=== PATIENT | female | born 1950 | race Caucasian/White ===

== ENCOUNTER 2019-05-26 10:30 | Day surgery (SDC) | payer MEDICARE ==
[~2019-05-26 10:30] MED LIST: FENTANYL CITRATE INJ/PF 100 MCG/2 ML AMPUL ONE; KETOROLAC TROMETHAMINE 0.45% 4 DROP/0.4 ML DROPERETTE OS PRN; MIDAZOLAM 2 MG/2 ML INJ ONE
[2019-05-26] MEDS: TROPICAMIDE 1% OPH SOLN 3 ML OS PRN ×3 (11:33→11:56)
[2019-05-26] MEDS: TETRACAINE HCL 0.5% OPH SOLN 4 ML OS PRN ×4 (11:33→12:06)
[2019-05-26] MEDS: CYCLOPENTOLATE 0.2%/PHENYLEPHRINE 1% OPH SOLN 2 ML OS PRN ×3 (11:33→11:56)
[2019-05-26] MEDS: BESIFLOXACIN HCL 0.6% OPH SUSP 5 ML BOTTLE OS PRN ×4 (11:33→12:32)
[2019-05-26] MEDS: LIDOCAINE 1%/PHENYLEPHRINE 1.5% 1 ML VIAL ONE ×2 (12:21)
[2019-05-26] MEDS: CHONDR SU A NA/HYALUR INTRAOC KIT (SURGICARE) ONE ×2 (12:21)
[2019-05-26] MEDS: EPINEPHRINE INJ/PF 1 MG/1 ML AMPULE ONE ×2 (12:21)
[2019-05-26] MEDS: DORZOLAMIDE HCL 2%/TIMOLOL MALEAT 0.5% OPH SOLN 10 ML OS PRN ×2 (12:32)
--- NOTE | 2019-05-26 13:37 | Operative Report ---
Operative Report-[facility] Operative Report: DATE OF SURGERY: 05/26/2019 PREOPERATIVE DIAGNOSIS: Cataracts, left eye POSTOPERATIVE DIAGNOSIS: Cataract, left eye OPERATION: Cataract extraction with insertion of an toric IOL of the left eye. Intraocular Lens Model: [23.0 sn6at8 at 13 degrees] SURGEON: Luis Antonio Monteiro MD ANESTHESIA: Topical PROCEDURE: After obtaining appropriate consent, the patient's left eye was prepped and draped in a sterile fashion as well as the surgeon in the sterile manner and cataract surgery was started. First a paracentesis blade was used to make a side-port incision. Viscoelastic was used to inflate the anterior chamber. Next a 2.4 mm incision was made with a 2.4 mm blade, clear corneal temporarily. A continuous capsulorrhexis was made using a cystotome and Utrata forceps. Following this hydrodissection was carried out to make commands fully loose and mobile and it was rotated 90 degrees. Following this, a divide and conquer technique was used to phacoemulsify the lens. The remaining cortex was removed with an irrigation/aspiration. Provisc was instilled into the capsular bag to inflate the bag.The intracular lens was placed. The remaining viscoelastic material was removed with irrigation/aspiration. Following this, the incision was found to be watertight. Besivance and Cosopt was instilled into the eye and a protective shield was placed over the eye. The patient was turned to the postoperative recovery in a stable condition.
--- NOTE | 2019-05-26 13:38 | PDOC DISCHARGE SUMMARY ---
Discharge Summary-[facility] Discharge Summary: DATE OF SURGERY: 05/26/2019 PREOPERATIVE DIAGNOSIS: Cataract, left eye POSTOPERATIVE DIAGNOSIS: Cataract, left eye OPERATION: Cataract extraction with insertion of an toric IOL of the left eye. SURGEON: Luis Antonio Monteiro MD ANESTHESIA: Topical The patient underwent surgery because they are having [trouble seeing words on the tv]. They're to be on a regular diet, no bending at their waist, and no heavy lifting. They should use the prescribed antibiotic, NSAID, and steroid at 3 PM and 8 PM. They should sleep with a rigid shield and I will see them for 1 day postoperative tomorrow.
== END 2019-05-26 13:16 | disposition home or self-care (01) ==
LOC: SC 10:30
PROVIDERS: ATTEND Internal Medicine
DX: H25.12 Age-related nuclear cataract, left eye (principal); Z96.1 Presence of intraocular lens; H17.89 Other corneal scars and opacities; I10 Essential (primary) hypertension; E66.9 Obesity, unspecified; E07.9 Disorder of thyroid, unspecified; Z79.899 Other long term (current) drug therapy
CPT/HCPCS: 66984; J2250; J3490 ×2; A9270; J0171; J3010; J2370; 142; V2787

== ENCOUNTER 2020-07-12 10:18 | Day surgery (SDC) | payer MEDICARE ==
[~2020-07-12 10:18] MED LIST changes: +CEFAZOLIN 2 GM/D5W RTU 2 GM/50 ML RTUPB IV PRN; -FENTANYL CITRATE INJ/PF 100 MCG/2 ML AMPUL ONE; -KETOROLAC TROMETHAMINE 0.45% 4 DROP/0.4 ML DROPERETTE OS PRN; +LACTATED RINGERS 1000 ML IV PRN; +METRONIDAZOLE 500 MG/NS RTU 500 MG/100 ML RTUPB IV PRN; -MIDAZOLAM 2 MG/2 ML INJ ONE
[2020-07-12] MEDS ORDERED: FENTANYL CITRATE INJ/PF 100 MCG/2 ML AMPUL ONE (10:59)
[2020-07-12] MEDS ORDERED: MIDAZOLAM 2 MG/2 ML INJ ONE (10:59)
[2020-07-12] MEDS ORDERED: PROPOFOL INJ 200 MG/20 ML VIAL IV ONE (10:59)
[2020-07-12] MEDS ORDERED: BUPIVACAINE INJ/PF LIPOSOME/PF 266 MG/20 ML SDV ONE (11:08)
[2020-07-12] MEDS ORDERED: METRONIDAZOLE 500 MG/NS RTU 500 MG/100 ML RTUPB IV ONE (11:14)
[2020-07-12] MEDS ORDERED: CEFAZOLIN 2 GM/D5W RTU 2 GM/50 ML RTUPB IV ONE (11:14)
[2020-07-12] MEDS ORDERED: FENTANYL CITRATE INJ/PF 100 MCG/2 ML AMPUL IV PRN ×3 (11:52)
[2020-07-12] MEDS ORDERED: DIPHENHYDRAMINE HCL 50 MG/ML VIAL IV PRN (11:52)
[2020-07-12] MEDS ORDERED: MEPERIDINE HCL/PF INJ 25 MG/1 ML DISP.SYRIN IV PRN (11:52)
[2020-07-12] MEDS ORDERED: PROMETHAZINE HCL INJ 25 MG/1 ML VIAL IV PRN ×2 (11:52)
[2020-07-12] MEDS ORDERED: MORPHINE SULFATE 10 MG/ML INJ IV PRN (11:52)
[2020-07-12] MEDS ORDERED: HYDROMORPHONE HCL INJ/PF 2 MG/ML AMPULE ONE (12:40)
[2020-07-12] MEDS: HYDROMORPHONE HCL INJ/PF 2 MG/ML AMPULE IV PRN ×3 (12:42→13:15)
--- NOTE | 2020-07-12 13:02 | Operative Report ---
Nonrecallable Operative Report DATE OF SURGERY: 07/12/20 PREOPERATIVE DIAGNOSIS: symptomatic cholelilthiasis POSTOPERATIVE DIAGNOSIS: symptomatic choleliltlhliasis OPERATION: laparoscpoic cholecystectomy SURGEON: CAROLYN CH 1ST [employer] SAL[employer] EXECUTIVE: JANETH PARMAR ANESTHESIA: GA TISSUE REMOVED OR ALTERED: gallbladder COMPLICATIONS: none ESTIMATED BLOOD LOSS: 10cc INTRAOPERATIVE FINDINGS: see note PROCEDURE: After obtaining informed consent, the patient was taken to the operating room. General Anesthesia was induced; the arms were extended, and the abdomen was exposed, and prepped and draped in a sterile fashion. Instrumentation was set up for laparoscopic cholecystectomy. Surgical plan and surgical timeout were conducted. A vertical incision was made above the umbilicus, and a verres needle was inserted uneventfully into the peritoneal cavity. Pneumoperitoneum was established. The verres needle was removed and a 10 mm trocar was inserted and a 10 mm laparoscope was inserted. Visualization of the peritoneal cavity confirmed safe uneventful entry. Under direct visualization 3 additional 5 mm ports were established, one in the subxiphoid position and second in the subcostal position. Visualization of the hepatobiliary anatomy revealed no anatomic variations. A grasper was placed on the fundus of the gallbladder and the gallbladder is elevated over the right surface of the liver; a second grasper was used to grasp the infundibulum of the gallbladder. The neck of the gallbladder and junction with the cystic duct was dissected out. The Cystic artery was in its usual location medial and cephalad to the cystic duct. The cystic artery was surrounded with a right angle clamp, clipped twice proximally and divided with laparoscopic scissors. We now opened the triangle of Calot by dividing the peritoneal reflection on both the medial and lateral sides of the cystic duct infundibular junction. The critical view was obtained. We now milked the cystic duct of any possible stones, clipped the cystic duct approximately 2 times once distally and divided with scissors. The gallbladder was now removed from the undersurface of the liver using hook cautery dissection. Graspers were repositioned and the gallbladder was removed uneventfully from the abdominal cavity through the super umbilical port site incision. The specimen was examined, then passed off to pathology for permanent analysis. We returned to the peritoneal cavity check for bleeding, and evidence of bile leak, and there was none. We Confirmed satisfactory placement of clips on cystic duct and cystic artery were secured . At this point we felt the operation was complete. The subcutaneous tissue was then anesthetized with quarter percent Marcaine Sponge and needle counts are correct. All ports removed under direct visualization pneumoperitoneum evacuated, and 5 mm port wounds closed with 3-0 Vicryl suture, benzoin and Steri-Strips. The patient was extubated, and taken to the recovery room in stable condition. Janeth Smith was present for the entire procedure for help with wound retraction dissection wound closure
--- NOTE | 2020-07-12 13:06 | Discharge Summary ---
Discharge Summary (SDC) - Discharge Final Diagnosis: Symptomatic cholelithiasis Date of Surgery: 07/12/20 Discharge Date: 07/12/20 Condition: Good Prescriptions: Oxycodone HCl/Acetaminophen [Percocet 7.5-325 mg Tablet] 1 each PO Q6HP PRN #15 tablet PRN Reason: Referrals: GERBER KEEN MD [Primary Care Provider] - Respiratory Treatments at Home: Deep Breathing/Coughing Discharge Activity: Activity As Tolerated, No Lifting Over 10 Pounds Report the Following to Your Physician Immediately: Shortness of Breath, Yellow Skin, Fever over 101 Degrees, Unusual Bleeding - f/u with me in 7-10 days
[2020-07-12] MEDS ORDERED: OXYCODONE-ACETAMINOPHEN 5-325 MG TABLET PO PRN (13:07)
[2020-07-12] MEDS ORDERED: OXYCODONE-ACETAMINOPHEN 5-325 MG TABLET ONE (14:05)
[2020-07-12] MEDS ORDERED: NEOSTIGMINE METHYLSULFATE 10 MG/10 ML VIAL ONE (14:37)
[2020-07-12] MEDS ORDERED: SUCCINYLCHOLINE CHLORIDE INJ 200 MG/10 ML VIAL ONE (14:37)
[2020-07-12] MEDS ORDERED: ROCURONIUM BROMIDE INJ 50 MG/5 ML VIAL IV ONE (14:37)
[2020-07-12] MEDS ORDERED: DEXAMETHASONE SOD PHOSPHATE INJ 4 MG/1 ML VIAL ONE (14:37)
[2020-07-12] MEDS ORDERED: ONDANSETRON HCL INJ/PF 4 MG/2 ML SDV ONE (14:37)
[2020-07-12] MEDS ORDERED: GLYCOPYRROLATE 1 MG/5 ML VIAL ONE (14:37)
[2020-07-12 17:26] VITALS: BP 138/78
--- NOTE | 2020-07-12 19:29 | EKG REPORT ---
SEVERITY:- ABNORMAL ECG - SINUS RHYTHM VENTRICULAR TRIGEMINY : Confirmed by: Sheri Guidry MD 12-Jul-2020 19:28:54
== END 2020-07-12 15:40 | disposition home or self-care (01) ==
LOC: OROUT 10:18
PROVIDERS: ATTEND Surgery
DX: K80.10 Calculus of gallbladder with chronic cholecystitis without obstruction (principal); E07.9 Disorder of thyroid, unspecified; I10 Essential (primary) hypertension; E66.9 Obesity, unspecified; Z79.899 Other long term (current) drug therapy; Z03.818 Encounter for observation for suspected exposure to other biological agents ruled out
CPT/HCPCS: 88304 ×2; 93005; 93010; 00790; 47562; U0003; J2250; J3490 ×3; J1100; J3010; J2710; A9270; J1170; J0330; J2405; J2704; J0690; C9290; C9803; 790; 87635

== ENCOUNTER 2020-08-31 12:07 | Inpatient (IN) | payer MEDICARE ==
--- NOTE | 2020-08-31 12:30 | ER Document Report ---
ED Respiratory Problem - General Stated Complaint: WEAKNESS Time Seen by Provider: 08/31/20 12:13 TRAVEL OUTSIDE OF THE [place] IN LAST 30 DAYS: No - HPI Notes: She is a 70-year-old female who presents with shortness of breath. Patient was diagnosed with Covid as an outpatient on Thursday. She states she has had worsening shortness of breath. She states she did have a fever but that has resolved. No diarrhea or vomiting. Patient is a non-smoker. Patient called EMS today. They gave her breathing treatments, 125 mg Solu-Medrol, 500ml LR. - Related Data Allergies/Adverse Reactions: No Known Allergies Allergy (Verified 08/31/20 13:12) Past Medical History - General Information source: Patient, Emergency Med Personnel - Social History Smoking Status: Never Smoker Family History: Reviewed & Not Pertinent - Past Medical History Cardiac Medical History: Reports: Hx Hypertension Denies: Hx Heart Attack Pulmonary Medical History: Denies: Hx Asthma, Hx Bronchitis, Hx COPD, Hx Pneumonia Neurological Medical History: Denies: Hx Cerebrovascular Accident, Hx Seizures GI Medical History: Denies: Hx Hepatitis, Hx Hiatal Hernia, Hx Ulcer Musculoskeletal Medical History: Reports Hx Arthritis Infectious Medical History: Denies: Hx Hepatitis Past Surgical History: Denies: Hx Mastectomy, Hx Open Heart Surgery, Hx Pacemaker - Immunizations Hx Diphtheria, Pertussis, Tetanus Vaccination: Yes Review of Systems - Review of Systems Notes: CONSTITUTIONAL: No fatigue or weight loss. Positive for fever. SKIN: No rash. CARDIOVASCULAR: No chest pain or edema. RESPIRATORY: Positive for cough and shortness of breath. GASTROINTESTINAL: No abdominal pain, nausea, vomiting, bloody stools or diarrhea. MUSCULOSKELETAL: No joint pain or swelling. NEUROLOGIC: No seizures. No headache, focal weakness or sensory changes. HEMATOLOGIC: No unusual bruising or bleeding. PSYCHIATRIC: No depression or anxiety. Physical Exam - Vital signs Vitals: Resp Pulse Ox 31 H 71 L 08/31/20 12:09 08/31/20 12:09 - General In distress: Mild Notes: VITAL SIGNS: On CPAP. Mild tachycardia. GENERAL: Distress due to respiratory. HEAD: Normal with no signs of head trauma. EYES: EOMI, conjunctiva normal, no discharge. EARS: Hearing grossly intact. NOSE: Normal. NECK: Normal range of motion, no tenderness CHEST: Tachypneic with increased work of breathing. CARDIAC: Regular rate and rhythm. VASCULAR: No Edema. ABDOMEN: Normal and soft with no tenderness, no masses or pulsatile masses. GENITOURINARY: Normal, No tenderness MUSCULOSKELETAL: Good range of motion of all major joints. Extremities without clubbing, cyanosis or edema. NEUROLOGICAL: Alert and oriented x 3. No focal sensory or strength deficits. Speech normal. Follows commands appropriately. PSYCHIATRIC: Normal Affect, judgement and mood. SKIN: Normal appearance with no rashes or lesions. Course - Re-evaluation Re-evalutation: 08/31/20 13:45 Patient's x-ray is consistent with Covid. She is on CPAP. Patient was given steroids by EMS. She will need to be admitted to the hospital. ABG is pending. Patient's ABG is adequate on 100% FiO2. I called respiratory to have them turn it down. She is not acidotic. I discussed with the hospitalist for admission to the IMCU. Patient has already gotten steroids by EMS. 08/31/20 15:21 - Vital Signs Vital signs: Temp Pulse Resp BP Pulse Ox 98.1 F 24 H 156/67 H 94 08/31/20 14:01 08/31/20 17:02 08/31/20 17:02 08/31/20 17:02 - Laboratory Result Diagrams: 08/31/20 12:15 08/31/20 12:15 Laboratory results interpreted by me: 08/31/20 08/31/20 08/31/20 12:15 14:25 15:01 ABG pO2 137.4 H ABG O2 Saturation 98.8 H AST 144 H ALT 129 H Urine Protein 30 H Urine Urobilinogen 2.0 H Ur Leukocyte Esterase TRACE H - EKG Interpretation by Me Rate: Tachycardia Rhythm: A.Fib When compared to previous EKG there are: Previous EKG unavailable Additional EKG results interpreted by me: 08/31/20 12:32 Atrial fibrillation at a rate of 109. No acute ST changes. Artifact present. No EKG immediately available for comparison. Critical Care Note - Critical Care Note Total time excluding time spent on procedures (mins): 45 Comments: Upon my evaluation, this patient had a high probability of imminent or life- threatening deterioration due to acute respiratory failure due to Covid, which required my direct attention, intervention, and personal management. I have personally provided 45 minutes of critical care time exclusive of time spent on separately billable procedures. Time includes review of laboratory data, radiology results, discussion with consultants, and monitoring for potential decompensation. Interventions were performed as above. Discharge - Discharge Clinical Impression: Acute respiratory failure due to COVID-19 Condition: Serious Disposition: ADMITTED INPATIENT Admitting Provider: Bharti (Hospitalist) Unit Admitted: [facility]
[2020-08-31 12:44] LABS: ABSOLUTE LYMPHOCYTES (AUTO) 1.1 10^3/uL (0.5-4.7); ABSOLUTE MONOCYTES (AUTO) 0.3 10^3/uL (0.1-1.4); ABSOLUTE NEUT (AUTO) 3.3 10^3/uL (1.7-8.2); BASOPHILS % (AUTO) 0.5 % (0-2); EOSINOPHILS % (AUTO) 0.1 % (0-6); HEMATOCRIT 42.4 % (36.0-47.0); HEMOGLOBIN 14.5 g/dL (12.0-15.5); LYMPHOCYTES % (AUTO) 23.6 % (13-45); MEAN CORPUSCULAR HEMOGLOBIN 30.9 pg (27.0-33.4); MEAN CORPUSCULAR HGB CONC 34.1 g/dL (32.0-36.0); MEAN CORPUSCULAR VOLUME 91 fl (80-97); MONOCYTES % (AUTO) 5.3 % (3-13); PLATELET COUNT 290 10^3/uL (150-450); RED BLOOD COUNT 4.68 10^6/uL (3.72-5.28); RED CELL DISTRIBUTION WIDTH 13.7 % (11.5-14.0); SEGMENTED NEUTROPHILS % (AUTO) 70.5 % (42-78); TOTAL CELLS COUNTED % (AUTO) 100 %; WHITE BLOOD COUNT 4.7 10^3/uL (4.0-10.5)
[2020-08-31 12:48] LABS: ALBUMIN 3.8 g/dL (3.5-5.0); ALKALINE PHOSPHATASE 59 U/L (38-126); ANION GAP 8 (5-19); ASPARTATE AMINO TRANSFERASE 144 U/L (14-36); BILIRUBIN,DIRECT 0.3 mg/dL (0.0-0.4); BILIRUBIN,TOTAL 0.8 mg/dL (0.2-1.3); BLOOD UREA NITROGEN 19 mg/dL (7-20); CALCIUM 8.6 mg/dL (8.4-10.2); CARBON DIOXIDE 27 mmol/L (22-30); CHLORIDE 102 mmol/L (98-107); GLUCOSE 103 mg/dL (75-110); POTASSIUM 3.9 mmol/L (3.6-5.0); TOTAL PROTEIN 6.9 g/dL (6.3-8.2)
--- NOTE | 2020-08-31 12:59 | RADIOLOGY REPORT (SQ) ---
EXAM DESCRIPTION: CHEST SINGLE VIEW IMAGES COMPLETED DATE/TIME: 08/31/2020 12:43 pm REASON FOR STUDY: resp distress, covid COMPARISON: None. EXAM PARAMETERS: NUMBER OF VIEWS: One view. TECHNIQUE: Single frontal radiographic view of the chest acquired. RADIATION DOSE: NA LIMITATIONS: None. FINDINGS: LUNGS AND PLEURA: Diffuse bilateral alveolar and interstitial infiltrates worrisome for vi ral pneumonia No pleural effusion. No pneumothorax. MEDIASTINUM AND HILAR STRUCTURES: No masses. Contour normal. HEART AND VASCULAR STRUCTURES: Mild cardiomegaly BONES: No acute findings. HARDWARE: None in the chest. OTHER: No other significant finding. IMPRESSION: Diffuse bilateral alveolar and interstitial infiltrates TECHNICAL DOCUMENTATION: JOB ID: [id number] 2010 [employer]- All Rights Reserved Reading location - IP/workstation name: [email or web address]
[2020-08-31 15:00] LABS: ARTERIAL BLOOD BASE EXCESS -2.1 mmol/L; ARTERIAL BLOOD FIO2 100%; ARTERIAL BLOOD HCO3 22.1 mmol/L (20-24); ARTERIAL BLOOD O2 SATURATION 98.8 % (94-98); ARTERIAL BLOOD PCO2 36.5 mmHg (35-45); ARTERIAL BLOOD PO2 137.4 mmHg (80-100); ARTERIAL BLOOD TOTAL CO2 23.2 mmol/L (21-25)
[2020-08-31] MEDS ORDERED: PROMETHAZINE HCL INJ 25 MG/1 ML VIAL IV PRN (15:37)
[2020-08-31] MEDS ORDERED: OXYCODONE-ACETAMINOPHEN 5-325 MG TABLET PO PRN (15:37)
[2020-08-31] MEDS ORDERED: ACETAMINOPHEN 325 MG TABLET PO PRN (15:37)
[2020-08-31] MEDS ORDERED: MAG HYDROX/AL HYDROX/SIMETH SUSP 30 ML UDCUP PO PRN (15:37)
[2020-08-31] MEDS ORDERED: MAGNESIUM HYDROXIDE SUSP 30 ML UDCUP PO PRN (15:37)
[2020-08-31] MEDS ORDERED: ONDANSETRON HCL INJ/PF 4 MG/2 ML SDV IV PRN (15:37)
[2020-08-31] MEDS ORDERED: IPRATROPIUM/ALBUTEROL 0.5-2.5 MG/3 ML AMPUL NEB PRN (15:37)
[2020-08-31] MEDS ORDERED: TEMAZEPAM 7.5 MG CAPSULE PO PRN (15:37)
[2020-08-31] MEDS ORDERED: AZITHROMYCIN 250 MG TABLET PO ONE (15:37)
[2020-08-31 15:38] LABS: APPEARANCE,URINE CLOUDY; BILIRUBIN,URINE NEGATIVE (NEGATIVE); GLUCOSE, URINE NEGATIVE (NEGATIVE); KETONES,URINE NEGATIVE (NEGATIVE); LEUKOCYTE ESTERASE,URINE TRACE (NEGATIVE); NITRITE,URINE NEGATIVE (NEGATIVE); PROTEIN,URINE 30 mg/dL (NEGATIVE); URINE SPECIFIC GRAVITY 1.024
[2020-08-31 15:43] LABS: COLOR,URINE DARK YELLOW
[2020-08-31] MEDS ORDERED: LABETALOL HCL INJ 20 MG/4 ML DISP.SYRIN IV PRN (15:43)
[2020-08-31] MEDS ORDERED: DEXAMETHASONE SOD PHOS INJ 10 MG/1 ML VIAL IV SCH (15:45)
[2020-08-31] MEDS: ASPIRIN 81 MG TABLET, ENT COATED PO SCH (17:09)
[2020-08-31] MEDS: CHOLECALCIFEROL (D3) 1,000 UNIT (25 MCG) TABLET PO SCH (17:10)
[2020-08-31] MEDS: ZINC SULFATE 220 MG CAPSULE PO SCH (17:10)
[2020-08-31] MEDS: DEXAMETHASONE SOD PHOSPHATE INJ 4 MG/1 ML VIAL IV SCH (17:10)
[2020-08-31] MEDS: LOSARTAN POTASSIUM 25 MG TABLET PO SCH (17:13)
[2020-08-31] MEDS: ASCORBIC ACID 500 MG TABLET PO SCH (17:14)
[2020-08-31 17:58] LABS: FIBRINOGEN 740 mg/dL (209-497); INTERNATIONAL RATION (INR) 1.01; PROTHROMBIN TIME 13.5 SEC (11.4-15.4)
[2020-08-31 18:01] LABS: D-DIMER 1.38 ug/mL (0.00-0.50)
[2020-08-31 18:09] LABS: C-REACTIVE PROTEIN 74.1 mg/L (<10.0)
[2020-08-31 18:58] LABS: A TYPE INFLUENZA AG NEGATIVE (NEGATIVE); B INFLUENZA AG NEGATIVE (NEGATIVE)
--- NOTE | 2020-08-31 19:10 | EKG REPORT ---
SEVERITY:- ABNORMAL ECG - WANDERING PACEMAKER SUPRAVENTRICULAR BIGEMINY DIFFUSE NONSPECIFIC ST-T CHANGES : Confirmed by: Dick Newsome MD 31-Aug-2020 19:08:53
[2020-08-31] MEDS: IPRATROPIUM/ALBUTEROL 0.5-2.5 MG/3 ML AMPUL NEB SCH (20:03)
[2020-08-31] MEDS: ENOXAPARIN SODIUM INJ 120 MG/0.8 ML DISP.SYRIN SUBCUT SCH (21:32)
[2020-08-31] MEDS: FAMOTIDINE 20 MG TABLET PO SCH (21:33)
[2020-09-01] MEDS: LEVOTHYROXINE SODIUM 0.088 MG TABLET PO SCH (05:25)
[2020-09-01] MEDS ORDERED: LEVOTHYROXINE SODIUM 0.075 MG TABLET PO SCH (06:00)
[2020-09-01 06:43] LABS: ABSOLUTE LYMPHOCYTES (AUTO) 0.5 10^3/uL (0.5-4.7); ABSOLUTE MONOCYTES (AUTO) 0.3 10^3/uL (0.1-1.4); ABSOLUTE NEUT (AUTO) 2.5 10^3/uL (1.7-8.2); BASOPHILS % (AUTO) 0.2 % (0-2); HEMATOCRIT 38.6 % (36.0-47.0); HEMOGLOBIN 13.5 g/dL (12.0-15.5); LYMPHOCYTES % (AUTO) 13.9 % (13-45); MEAN CORPUSCULAR HEMOGLOBIN 31.2 pg (27.0-33.4); MEAN CORPUSCULAR HGB CONC 34.9 g/dL (32.0-36.0); MEAN CORPUSCULAR VOLUME 89 fl (80-97); MONOCYTES % (AUTO) 8.9 % (3-13); PLATELET COUNT 245 10^3/uL (150-450); RED BLOOD COUNT 4.33 10^6/uL (3.72-5.28); RED CELL DISTRIBUTION WIDTH 13.5 % (11.5-14.0); TOTAL CELLS COUNTED % (AUTO) 100 %; WHITE BLOOD COUNT 3.3 10^3/uL (4.0-10.5)
[2020-09-01 06:58] LABS: ALBUMIN 3.5 g/dL (3.5-5.0); ALKALINE PHOSPHATASE 59 U/L (38-126); ANION GAP 10 (5-19); ASPARTATE AMINO TRANSFERASE 101 U/L (14-36); BILIRUBIN,DIRECT 0.2 mg/dL (0.0-0.4); BILIRUBIN,TOTAL 0.6 mg/dL (0.2-1.3); BLOOD UREA NITROGEN 28 mg/dL (7-20); C-REACTIVE PROTEIN 66.1 mg/L (<10.0); CARBON DIOXIDE 23 mmol/L (22-30); CHLORIDE 105 mmol/L (98-107); GLUCOSE 145 mg/dL (75-110); POTASSIUM 3.8 mmol/L (3.6-5.0); TOTAL PROTEIN 6.6 g/dL (6.3-8.2)
[2020-09-01] MEDS: IPRATROPIUM/ALBUTEROL 0.5-2.5 MG/3 ML AMPUL NEB SCH ×3 (08:20→20:34)
[2020-09-01] MEDS: LOSARTAN POTASSIUM 25 MG TABLET PO SCH (09:18)
[2020-09-01] MEDS: FAMOTIDINE 20 MG TABLET PO SCH ×2 (09:18→21:18)
[2020-09-01] MEDS: CHOLECALCIFEROL (D3) 1,000 UNIT (25 MCG) TABLET PO SCH (09:18)
[2020-09-01] MEDS: DOCUSATE SODIUM 100 MG CAPSULE PO SCH (09:18)
[2020-09-01] MEDS: AZITHROMYCIN 250 MG TABLET PO SCH (09:18)
[2020-09-01] MEDS: ASCORBIC ACID 500 MG TABLET PO SCH ×2 (09:18→17:03)
[2020-09-01] MEDS: ENOXAPARIN SODIUM INJ 120 MG/0.8 ML DISP.SYRIN SUBCUT SCH ×2 (09:19→21:18)
[2020-09-01] MEDS: DEXAMETHASONE SOD PHOSPHATE INJ 4 MG/1 ML VIAL IV SCH (09:19)
[2020-09-01] MEDS: ZINC SULFATE 220 MG CAPSULE PO SCH (09:19)
[2020-09-01] MEDS: ASPIRIN 81 MG TABLET, ENT COATED PO SCH (09:19)
[2020-09-01] MEDS ORDERED: LOSARTAN POTASSIUM 50 MG TABLET PO SCH (10:00)
--- NOTE | 2020-09-01 12:01 | PDOC H&P ---
History of Present Illness Admission Date/PCP: 08/31/20 16:16 GERBER KEEN MD History of Present Illness: SU BOND is a 70 year old female past medical history of hypertension and hypothyroidism presented to ED complaining of worsening shortness of breath. Patient was recently exposed to COVID-19, stating that a week after exposure she was feeling tired and went to get tested for COVID-19, on Thursday he was called and told that she had tested positive for COVID-19. Patient is stating that her fatigue and shortness of breath got worse and that is what brought her to the ED. Patient is stating that she did not have any fever, anosmia, dysgeusia, she did have diarrhea which has resolved. Denies any chest pain, fever, chills, nausea, vomiting, diarrhea, constipation or any urinary symptoms. ED she was noted to be hypoxic, chest x-ray was positive for diffuse bilateral alveolar interstitial infiltrates. Hospitalist consulted for admission. Past Medical History Cardiac Medical History: Reports: Hypertension Denies: Myocardial Infarction Pulmonary Medical History: Denies: Asthma, Bronchitis, Chronic Obstructive Pulmonary Disease (COPD), Pneumonia Neurological Medical History: Denies: Seizures GI Medical History: Denies: Hepatitis, Hiatal Hernia Musculoskeltal Medical History: Reports: Arthritis Psychiatric Medical History: Denies: Depression Hematology: Denies: Anemia, Sickle Cell Disease Past Surgical History Past Surgical History: Denies: Amputation, Mastectomy, Pacemaker Social History Smoking Status: Never Smoker Family History Family History: Reviewed & Not Pertinent Parental Family History Reviewed: Yes Children Family History Reviewed: Yes Sibling(s) Family History Reviewed.: Yes Medication/Allergy Home Medications: Losartan Potassium [Cozaar 25 mg Tablet] 25 mg PO DAILY 04/22/19 Celecoxib [Celebrex 200 mg Capsule] 200 mg PO DAILYP PRN 07/12/20 Alprazolam [Xanax 0.25 mg Tablet] 0.25 mg PO Q8HP PRN 08/31/20 Levothyroxine Sodium 88 mcg PO Q6AM 08/31/20 Allergies/Adverse Reactions: No Known Allergies Allergy (Verified 08/31/20 13:12) Review of Systems Review of Systems: as per hpi Physical Exam Vital Signs: Temp Pulse Resp BP Pulse Ox 97.5 F 60 26 H 131/66 H 97 09/01/20 10:33 09/01/20 10:33 09/01/20 10:33 09/01/20 10:33 09/01/20 10:33 Intake & Output 08/31/20 09/01/20 09/02/20 06:59 06:59 06:59 Intake Total 0 Balance 0 Weight 127 kg General appearance: PRESENT: no acute distress, morbidly obese Head exam: PRESENT: atraumatic, normocephalic Neck exam: ABSENT: carotid bruit, JVD, lymphadenopathy, thyromegaly Respiratory exam: PRESENT: crackles. ABSENT: rales, rhonchi, wheezes Cardiovascular exam: PRESENT: RRR. ABSENT: diastolic murmur, rubs, systolic murmur GI/Abdominal exam: PRESENT: normal bowel sounds, soft. ABSENT: distended, guarding, mass, organolmegaly, rebound, tenderness Neurological exam: PRESENT: alert, awake, oriented to person, oriented to place, oriented to time, oriented to situation, CN II-XII grossly intact. ABSENT: motor sensory deficit Results Laboratory Results: 09/01/20 06:24 09/01/20 06:24 08/31/20 08/31/20 08/31/20 12:15 12:15 14:25 WBC 4.7 RBC 4.68 Hgb 14.5 Hct 42.4 MCV 91 MCH 30.9 MCHC 34.1 RDW 13.7 Plt Count 290 Seg Neutrophils % 70.5 Carbonic Acid 1.10 HCO3/H2CO3 Ratio 20:1 ABG pH 7.40 ABG pCO2 36.5 ABG pO2 137.4 H ABG HCO3 22.1 ABG O2 Saturation 98.8 H ABG Base Excess -2.1 FiO2 100% Sodium 137.3 Potassium 3.9 Chloride 102 Carbon Dioxide 27 Anion Gap 8 BUN 19 Creatinine 0.80 Est GFR ( Amer) > 60 Glucose 103 Calcium 8.6 Magnesium 2.3 Ferritin Total Bilirubin 0.8 AST 144 H Alkaline Phosphatase 59 C-Reactive Protein Total Protein 6.9 Albumin 3.8 Urine Color Urine Appearance Urine pH Ur Specific [place] Urine Protein Urine Glucose (UA) Urine Ketones Urine Blood Urine Nitrite Ur Leukocyte Esterase Urine WBC (Auto) Urine RBC (Auto) Blood Type Antibody Screen 08/31/20 08/31/20 08/31/20 15:01 17:31 17:31 WBC RBC Hgb Hct MCV MCH MCHC RDW Plt Count Seg Neutrophils % Carbonic Acid HCO3/H2CO3 Ratio ABG pH ABG pCO2 ABG pO2 ABG HCO3 ABG O2 Saturation ABG Base Excess FiO2 Sodium Potassium Chloride Carbon Dioxide Anion Gap BUN Creatinine Est GFR ( Amer) Glucose Calcium Magnesium Ferritin 1490.00 H Total Bilirubin AST Alkaline Phosphatase C-Reactive Protein 74.1 H Total Protein Albumin Urine Color DARK YELLOW Urine Appearance CLOUDY Urine pH 6.0 Ur Specific [place] 1.024 Urine Protein 30 H Urine Glucose (UA) NEGATIVE Urine Ketones NEGATIVE Urine Blood NEGATIVE Urine Nitrite NEGATIVE Ur Leukocyte Esterase TRACE H Urine WBC (Auto) 18 Urine RBC (Auto) 2 Blood Type B POSITIVE Antibody Screen NEGATIVE 09/01/20 09/01/20 06:24 06:24 WBC 3.3 L RBC 4.33 Hgb 13.5 Hct 38.6 MCV 89 MCH 31.2 MCHC 34.9 RDW 13.5 Plt Count 245 Seg Neutrophils % 77.0 Carbonic Acid HCO3/H2CO3 Ratio ABG pH ABG pCO2 ABG pO2 ABG HCO3 ABG O2 Saturation ABG Base Excess FiO2 Sodium 138.0 Potassium 3.8 Chloride 105 Carbon Dioxide 23 Anion Gap 10 BUN 28 H Creatinine 0.83 Est GFR ( Amer) > 60 Glucose 145 H Calcium 9.0 Magnesium Ferritin 1290.00 H Total Bilirubin 0.6 AST 101 H Alkaline Phosphatase 59 C-Reactive Protein 66.1 H Total Protein 6.6 Albumin 3.5 Urine Color Urine Appearance Urine pH Ur Specific [place] Urine Protein Urine Glucose (UA) Urine Ketones Urine Blood Urine Nitrite Ur Leukocyte Esterase Urine WBC (Auto) Urine RBC (Auto) Blood Type Antibody Screen 08/31/20 12:15 Troponin I < 0.012 Impressions: Chest X-Ray 08/31/20 12:28 IMPRESSION: Diffuse bilateral alveolar and interstitial infiltrates Assessment and Plan - Diagnosis (1) Acute respiratory failure due to COVID-19 Is this a current diagnosis for this admission?: Yes Plan: Tested positive for COVID-19 as outpatient. Presented to ED with worsening shortness of breath. Hypoxic on admission. Admit to IMC, empiric IV antibiotics, duo nebs, IV steroids, flutter valve, incentive spirometry, effervescent plasma transfusion, pulmonary toileting. (2) Hypertension Is this a current diagnosis for this admission?: Yes Plan: Euvolemic. Normotensive. Resume home meds. Adjust meds as needed. As needed IV hydralazine. (3) Morbid obesity Is this a current diagnosis for this admission?: Yes Plan: BMI 46.6. Diet and lifestyle modification recommended. Will check thyroid function, lipid panel and screen for diabetes. (4) Hypothyroidism Is this a current diagnosis for this admission?: Yes Plan: Resume home meds. - Time Time Spent with patient: 35 or more minutes Anticipated Discharge Disposition: Home, Self Care Anticipated Discharge Timeframe: within 72 hours
[2020-09-01] MEDS: CEFTRIAXONE 1 GM/D5W RTU 1 GM/50 ML RTUPB IV SCH (14:18)
[2020-09-02] MEDS: LEVOTHYROXINE SODIUM 0.088 MG TABLET PO SCH (06:13)
[2020-09-02 06:24] LABS: ABSOLUTE MONOCYTES (AUTO) 0.5 10^3/uL (0.1-1.4); BASOPHILS % (AUTO) 0.1 % (0-2); MEAN CORPUSCULAR VOLUME 90 fl (80-97); TOTAL CELLS COUNTED % (AUTO) 100 %
[2020-09-02 06:29] LABS: ABSOLUTE NEUT (AUTO) 6.4 10^3/uL (1.7-8.2); HEMATOCRIT 36.5 % (36.0-47.0); HEMOGLOBIN 12.7 g/dL (12.0-15.5); LYMPHOCYTES % (AUTO) 12.2 % (13-45); MEAN CORPUSCULAR HGB CONC 34.7 g/dL (32.0-36.0); MONOCYTES % (AUTO) 6.5 % (3-13); PLATELET COUNT 329 10^3/uL (150-450); RED BLOOD COUNT 4.08 10^6/uL (3.72-5.28); RED CELL DISTRIBUTION WIDTH 13.6 % (11.5-14.0); SEGMENTED NEUTROPHILS % (AUTO) 81.2 % (42-78)
[2020-09-02 06:30] LABS: WHITE BLOOD COUNT 7.9 10^3/uL (4.0-10.5)
[2020-09-02] MEDS ORDERED: DILTIAZEM HCL INJ 25 MG/5 ML VIAL ONE ×2 (06:41→09:08)
[2020-09-02] MEDS ORDERED: DILTIAZEM HCL INJ 25 MG/5 ML VIAL IV ONE (06:45)
[2020-09-02 06:50] LABS: ALBUMIN 3.4 g/dL (3.5-5.0); ALKALINE PHOSPHATASE 59 U/L (38-126); ANION GAP 9 (5-19); ASPARTATE AMINO TRANSFERASE 67 U/L (14-36); BILIRUBIN,DIRECT 0.3 mg/dL (0.0-0.4); BILIRUBIN,TOTAL 0.7 mg/dL (0.2-1.3); BLOOD UREA NITROGEN 26 mg/dL (7-20); C-REACTIVE PROTEIN 40.5 mg/L (<10.0); CALCIUM 8.8 mg/dL (8.4-10.2); CARBON DIOXIDE 26 mmol/L (22-30); CHLORIDE 106 mmol/L (98-107); CHOLESTEROL 160.02 mg/dL (0-200); GLUCOSE 109 mg/dL (75-110); POTASSIUM 3.8 mmol/L (3.6-5.0); TOTAL PROTEIN 6.4 g/dL (6.3-8.2); TRIGLYCERIDES 146 mg/dL (<150)
[2020-09-02 07:01] LABS: DIRECT LDL 104 mg/dL (<100)
[2020-09-02] MEDS ORDERED: DILTIAZEM HCL/D5W 125 MG/125 ML RTUINJ IV PRN (07:53)
[2020-09-02] MEDS: IPRATROPIUM/ALBUTEROL 0.5-2.5 MG/3 ML AMPUL NEB SCH (07:58)
--- NOTE | 2020-09-02 08:46 | EKG REPORT ---
SEVERITY:- ABNORMAL ECG - ATRIAL FIBRILLATION NONSPECIFIC T ABNORMALITIES, ANT-LAT LEADS : Confirmed by: Dick Newsome MD 02-Sep-2020 08:44:52
[2020-09-02] MEDS ORDERED: DIGOXIN INJ 0.5 MG/2 ML AMPULE ONE ×2 (09:16→09:31)
[2020-09-02] MEDS ORDERED: IPRATROPIUM BROMIDE 0.02% NEB 0.5 MG/2.5 ML AMPUL NEB PRN (09:55)
[2020-09-02] MEDS ORDERED: DIGOXIN INJ 0.5 MG/2 ML AMPULE IV ONE (10:00)
--- NOTE | 2020-09-02 10:00 | PDOC PROGRESS REPORT ---
Subjective Date:: 09/02/20 Subjective:: SU BOND is a 70 year old female past medical history of hypertension and hypothyroidism presented to ED complaining of worsening shortness of breath. Patient was recently exposed to COVID-19, stating that a week after exposure she was feeling tired and went to get tested for COVID-19, on Thursday he was called and told that she had tested positive for COVID-19. Patient is stating that her fatigue and shortness of breath got worse and that is what brought her to the ED. Patient is stating that she did not have any fever, anosmia, dysgeusia, she did have diarrhea which has resolved. Denies any chest pain, fever, chills, nausea, vomiting, diarrhea, constipation or any urinary symptoms. ED she was noted to be hypoxic, chest x-ray was positive for diffuse bilateral alveolar interstitial infiltrates. Hospitalist consulted for admission. 08/24/2020. Reporting mild improvement of her currently on BiPAP at 60% FiO2 saturating WNL, no leukocytosis, improving of inflammatory markers, alert and oriented x3, cooperative with physical examination, answering question appropriately, denies any fever, chills, nausea, vomiting, diarrhea, constipation or any urinary symptoms. 09/02/2020. No acute events noted, and unfortunately patient was noted to be in A. fib RVR this morning, was given a dose of Cardizem with no improvement, on my encounter patient does not seem to be in any acute distress and that she is not doing any better than yesterday, stating that she did have history of A. fib RVR and was followed by Dr. Olaf Squires, had monitor placed and was told that she did not need any chronic anticoagulation, denies any fever, chills, nausea, vomiting, diarrhea, constipation or any urinary symptoms. Reason For Visit: COVID-19 Physical Exam Vital Signs: Temp Pulse Resp BP Pulse Ox 98.0 F 79 19 129/65 H 96 09/02/20 07:47 09/02/20 09:20 09/02/20 07:58 09/02/20 09:20 09/02/20 07:58 Intake & Output 09/01/20 09/02/20 09/03/20 06:59 06:59 06:59 Intake Total 794 Balance 794 Weight 127 kg 129.2 kg General appearance: PRESENT: mild distress, morbidly obese Head exam: PRESENT: atraumatic, normocephalic Neck exam: ABSENT: carotid bruit, JVD, lymphadenopathy, thyromegaly Respiratory exam: PRESENT: crackles, symmetrical, tachypnea. ABSENT: rales, rhonchi, wheezes Cardiovascular exam: PRESENT: irregular rhythm, tachycardia. ABSENT: diastolic murmur, rubs, systolic murmur GI/Abdominal exam: PRESENT: normal bowel sounds, soft. ABSENT: distended, guarding, mass, organolmegaly, rebound, tenderness Neurological exam: PRESENT: alert, awake, oriented to person, oriented to place, oriented to time, oriented to situation, CN II-XII grossly intact. ABSENT: motor sensory deficit Results Laboratory Results: 09/02/20 05:45 09/02/20 05:45 08/31/20 09/02/20 09/02/20 17:31 05:45 05:45 WBC 7.9 D RBC 4.08 Hgb 12.7 Hct 36.5 MCV 90 MCH 31.0 MCHC 34.7 RDW 13.6 Plt Count 329 Seg Neutrophils % 81.2 H Sodium 141.1 Potassium 3.8 Chloride 106 Carbon Dioxide 26 Anion Gap 9 BUN 26 H Creatinine 0.76 Est GFR ( Amer) > 60 Glucose 109 Calcium 8.8 Ferritin 1140.00 H Total Bilirubin 0.7 AST 67 H Alkaline Phosphatase 59 C-Reactive Protein 40.5 H Total Protein 6.4 Albumin 3.4 L Triglycerides 146 Cholesterol 160.02 LDL Cholesterol Direct 104 H VLDL Cholesterol 29.0 HDL Cholesterol 39 L TSH Blood Type B POSITIVE Antibody Screen NEGATIVE 09/02/20 05:45 WBC RBC Hgb Hct MCV MCH MCHC RDW Plt Count Seg Neutrophils % Sodium Potassium Chloride Carbon Dioxide Anion Gap BUN Creatinine Est GFR ( Amer) Glucose Calcium Ferritin Total Bilirubin AST Alkaline Phosphatase C-Reactive Protein Total Protein Albumin Triglycerides Cholesterol LDL Cholesterol Direct VLDL Cholesterol HDL Cholesterol TSH 3.90 Blood Type Antibody Screen 08/31/20 12:15 Troponin I < 0.012 Impressions: Chest X-Ray 08/31/20 12:28 IMPRESSION: Diffuse bilateral alveolar and interstitial infiltrates Assessment and Plan - Diagnosis (1) Acute respiratory failure due to COVID-19 Is this a current diagnosis for this admission?: Yes Plan: Improving. BiPAP dependent. FiO2 60%. Tested positive for COVID-19 as outpatient. Presented to ED with worsening shortness of breath. Hypoxic on admission. Continue empiric IV antibiotics, duo nebs, IV steroids, flutter valve, incentive spirometry, effervescent plasma transfusion, pulmonary toileting. Day 3 IV antibiotics. Day 3 IV ceftriaxone. Day 3 IV azithromycin. Status post effervescent plasma transfusion. (2) Hypertension Is this a current diagnosis for this admission?: Yes Plan: Euvolemic. Normotensive. Resume home meds. Adjust meds as needed. As needed IV hydralazine. (3) Morbid obesity Is this a current diagnosis for this admission?: Yes Plan: BMI 46.6. Diet and lifestyle modification recommended. Hemoglobin A1c WNL. TSH WNL. Elevated lipid profile. (4) Hypothyroidism Is this a current diagnosis for this admission?: Yes Plan: Resume home meds. (5) Paroxysmal atrial fibrillation with rapid ventricular response Is this a current diagnosis for this admission?: Yes Plan: History of paroxysmal atrial fibrillation. Noted to be on A. fib RVR. Likely brought on by acute illness. As per patient she was diagnosed with A. 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 She was told that she did not need any medication at this point. Continue telemetry, Alexis barlow to be followed by Alexis p.oStephanie, anticoagulation, cardiology consult. (6) Dyslipidemia Is this a current diagnosis for this admission?: Yes Plan: ASCVD score of 18.1.% High intensity statins indicated. We will start on atorvastatin 40 mg nightly. - Time Time Spent with patient: 35 or more minutes Medications reviewed and adjusted accordingly: Yes Anticipated Discharge Disposition: Home, Self Care Anticipated Discharge Timeframe: within 48 hours
[2020-09-02] MEDS: CEFTRIAXONE 1 GM/D5W RTU 1 GM/50 ML RTUPB IV SCH (10:03)
[2020-09-02] MEDS: AZITHROMYCIN 250 MG TABLET PO SCH (10:04)
[2020-09-02] MEDS: CHOLECALCIFEROL (D3) 1,000 UNIT (25 MCG) TABLET PO SCH (10:04)
[2020-09-02] MEDS: ENOXAPARIN SODIUM INJ 120 MG/0.8 ML DISP.SYRIN SUBCUT SCH ×2 (10:04→21:28)
[2020-09-02] MEDS: ASPIRIN 81 MG TABLET, ENT COATED PO SCH (10:04)
[2020-09-02] MEDS: ZINC SULFATE 220 MG CAPSULE PO SCH (10:04)
[2020-09-02] MEDS: DOCUSATE SODIUM 100 MG CAPSULE PO SCH (10:04)
[2020-09-02] MEDS: FAMOTIDINE 20 MG TABLET PO SCH ×2 (10:04→21:27)
[2020-09-02] MEDS: DEXAMETHASONE SOD PHOSPHATE INJ 4 MG/1 ML VIAL IV SCH (10:05)
[2020-09-02] MEDS: LOSARTAN POTASSIUM 25 MG TABLET PO SCH (10:05)
[2020-09-02] MEDS ORDERED: AMIODARONE HCL 150 MG in DEXTROSE 5%-WATER 100 ML IV ONE (12:30)
[2020-09-02] MEDS ORDERED: DEXTROSE 5%-WATER 500 ML with AMIODARONE HCL 900 MG IV PRN ×2 (12:30)
[2020-09-02] MEDS: ASCORBIC ACID 500 MG TABLET PO SCH ×2 (13:11→17:50)
[2020-09-02] MEDS: LEVALBUTEROL HCL NEB 0.63 MG/3 ML AMPUL NEB SCH ×2 (13:47→20:41)
[2020-09-02] MEDS: IPRATROPIUM BROMIDE 0.02% NEB 0.5 MG/2.5 ML AMPUL NEB SCH ×2 (13:47→20:41)
[2020-09-02] MEDS ORDERED: METOPROLOL TARTRATE PF/INJ 5 MG/5 ML SDV IV ONE (14:21)
[2020-09-02] MEDS: METOPROLOL TARTRATE PF/INJ 5 MG/5 ML SDV IV PRN (14:34)
[2020-09-02 16:10] LABS: FIBRINOGEN 626 mg/dL (209-497); INTERNATIONAL RATION (INR) 1.05; PROTHROMBIN TIME 13.9 SEC (11.4-15.4)
[2020-09-02 16:13] LABS: D-DIMER 0.49 ug/mL (0.00-0.50)
[2020-09-02] MEDS: ATORVASTATIN CALCIUM 40 MG TABLET PO SCH (21:27)
[2020-09-03] MEDS: LEVOTHYROXINE SODIUM 0.088 MG TABLET PO SCH (05:46)
[2020-09-03 06:18] LABS: HEMATOCRIT 39.4 % (36.0-47.0); HEMOGLOBIN 13.6 g/dL (12.0-15.5); MEAN CORPUSCULAR HGB CONC 34.4 g/dL (32.0-36.0); MEAN CORPUSCULAR VOLUME 90 fl (80-97); PLATELET COUNT 358 10^3/uL (150-450); RED BLOOD COUNT 4.38 10^6/uL (3.72-5.28); RED CELL DISTRIBUTION WIDTH 13.5 % (11.5-14.0); WHITE BLOOD COUNT 8.2 10^3/uL (4.0-10.5)
[2020-09-03 06:46] LABS: ALBUMIN 3.3 g/dL (3.5-5.0); ALKALINE PHOSPHATASE 60 U/L (38-126); ANION GAP 9 (5-19); ASPARTATE AMINO TRANSFERASE 54 U/L (14-36); BILIRUBIN,DIRECT 0.2 mg/dL (0.0-0.4); BILIRUBIN,TOTAL 0.7 mg/dL (0.2-1.3); BLOOD UREA NITROGEN 21 mg/dL (7-20); C-REACTIVE PROTEIN 33.4 mg/L (<10.0); CALCIUM 8.7 mg/dL (8.4-10.2); CARBON DIOXIDE 26 mmol/L (22-30); CHLORIDE 106 mmol/L (98-107); GLUCOSE 117 mg/dL (75-110); POTASSIUM 4.1 mmol/L (3.6-5.0); TOTAL PROTEIN 6.2 g/dL (6.3-8.2)
[2020-09-03] MEDS: IPRATROPIUM BROMIDE 0.02% NEB 0.5 MG/2.5 ML AMPUL NEB SCH ×3 (08:47→20:46)
[2020-09-03] MEDS: LEVALBUTEROL HCL NEB 0.63 MG/3 ML AMPUL NEB SCH ×3 (08:47→20:46)
--- NOTE | 2020-09-03 09:28 | PDOC CONSULTATION ---
Consultation Consult Date: 09/03/20 Attending physician:: RUI VALENCIA Provider Consulted: NOELLE BARNEY Consult reason:: Atrial fibrillation, COVID-19 infection History of Present Illness Admission Date/PCP: 08/31/20 16:16 GERBER KEEN MD Patient complains of: Dyspnea History of Present Illness: SU BOND is a 70 year old female With the following active problems 1. Systemic hypertension 2. Morbid obesity 3. Hypothyroidism 4. Premature ventricular contractions 5. Dyslipidemia 68-year-old lady known to me from an office visit for evaluation of asymptomatic premature ventricular contractions. Upon review of my office records it appears that the patient had ambulatory cardiac monitoring but no other testing as she was completely asymptomatic. At the moment I do not have access to the ambulatory cardiac monitoring results. Patient has been admitted to the hospital with COVID-19 infection and concomitant respiratory distress and abnormal chest x-ray findings. Of note during the admission patient developed atrial fibrillation rapid ventricular response which was difficult to control. After exhausting AV herve blocking agents the attending physician resorted to intravenous amiodarone which resulted in better rate control. Patient is presently is on systemic anticoagulation with full dose enoxaparin. At the time of my evaluation patient endorses discomfort from a respiratory standpoint but no chest pain or palpitations. Patient's heart rate is better controlled She is not a smoker. No familial illnesses were reported to me. Past Medical History Cardiac Medical History: Reports: Hypertension Denies: Myocardial Infarction Pulmonary Medical History: Denies: Asthma, Bronchitis, Chronic Obstructive Pulmonary Disease (COPD), Pneumonia Neurological Medical History: Denies: Seizures GI Medical History: Denies: Hepatitis, Hiatal Hernia Musculoskeltal Medical History: Reports: Arthritis Psychiatric Medical History: Denies: Depression Hematology: Denies: Anemia, Sickle Cell Disease Past Surgical History Past Surgical History: Denies: Amputation, Mastectomy, Pacemaker Social History Smoking Status: Never Smoker Family History Family History: Reviewed & Not Pertinent Parental Family History Reviewed: Yes - No familial illnesses Children Family History Reviewed: NA Sibling(s) Family History Reviewed.: NA Medication/Allergy Home Medications: Losartan Potassium [Cozaar 25 mg Tablet] 25 mg PO DAILY 04/22/19 Celecoxib [Celebrex 200 mg Capsule] 200 mg PO DAILYP PRN 07/12/20 Alprazolam [Xanax 0.25 mg Tablet] 0.25 mg PO Q8HP PRN 08/31/20 Levothyroxine Sodium 88 mcg PO Q6AM 08/31/20 Allergies/Adverse Reactions: No Known Allergies Allergy (Verified 08/31/20 13:12) Review of Systems Constitutional: PRESENT: fatigue, headache(s) Cardiovascular: PRESENT: palpitations Respiratory: PRESENT: dyspnea Integumentary: ABSENT: as per HPI, diaphoresis, erythema, lesions, pruritus, rash, wounds, other Neurological: ABSENT: as per HPI, abnormal gait, abnormal movements, abnormal speech, confusion, convulsions, dizziness, focal weakness, frequent falls, lack of coordination, memory loss, numbness, paresthesias, restless legs, syncope, tingling, tremor(s), vertigo, weakness, other Endocrine: ABSENT: as per HPI, cold intolerance, flushing, heat intolerance, menstrual abnormalities, polydipsia, polyphagia, polyuria, other Physical Exam Vital Signs: Temp Pulse Resp BP Pulse Ox 97.5 F 59 L 25 H 120/83 95 09/03/20 04:26 09/03/20 07:00 09/03/20 04:26 09/03/20 07:00 09/03/20 04:26 Intake & Output 09/02/20 09/03/20 09/04/20 06:59 06:59 06:59 Intake Total 794 100 Output Total 200 Balance 794 -100 Weight 129.2 kg 127 kg General appearance: PRESENT: no acute distress, cooperative, morbidly obese, well-developed, well-nourished Head exam: PRESENT: atraumatic, normocephalic Eye exam: PRESENT: conjunctiva pink Mouth exam: PRESENT: moist Respiratory exam: PRESENT: crackles, decreased breath sounds, symmetrical, unlabored Cardiovascular exam: PRESENT: irregular rhythm, +S1, +S2 Pulses: PRESENT: normal radial pulses GI/Abdominal exam: PRESENT: soft Rectal exam: PRESENT: deferred Neurological exam: PRESENT: alert, awake, oriented to person, oriented to place, oriented to time, oriented to situation Psychiatric exam: PRESENT: appropriate affect Skin exam: PRESENT: dry, intact Results Laboratory Results: 09/03/20 05:38 09/03/20 05:38 09/03/20 09/03/20 05:38 05:38 WBC 8.2 RBC 4.38 Hgb 13.6 Hct 39.4 MCV 90 MCH 31.0 MCHC 34.4 RDW 13.5 Plt Count 358 Sodium 140.7 Potassium 4.1 Chloride 106 Carbon Dioxide 26 Anion Gap 9 BUN 21 H Creatinine 0.73 Est GFR ( Amer) > 60 Glucose 117 H Calcium 8.7 Magnesium 2.4 H Ferritin 1040.00 H Total Bilirubin 0.7 AST 54 H Alkaline Phosphatase 60 C-Reactive Protein 33.4 H Total Protein 6.2 L Albumin 3.3 L 08/31/20 12:15 Troponin I < 0.012 EKG Comments: Twelve-lead EKG 1127 2020-09-19. Independently viewed by me. Atrial fibrillation rapid ventricular response 109 bpm, QTC is 450 ms, nonspecific ST-T changes Twelve-lead EKG 09/02/2020 7:12 AM Independently viewed by me. Atrial fibrillation rapid ventricular response 103 bpm. Chest x-ray 08/31/2020. Diffuse bilateral alveolar and interstitial infiltrates. Impressions: Chest X-Ray 08/31/20 12:28 IMPRESSION: Diffuse bilateral alveolar and interstitial infiltrates Assessment & Plan - Diagnosis (1) Acute respiratory failure due to COVID-19 Is this a current diagnosis for this admission?: Yes Plan: Active COVID-19 infection with respiratory distress and abnormal chest x-ray findings Supportive care Respiratory therapy are fully involved. Patient continues to mentate and has no clinical effects on account of hypoxia at the moment. (2) Hypertension Qualifiers: Hypertension type: essential hypertension Qualified Code(s): I10 - Essential (primary) hypertension Is this a current diagnosis for this admission?: Yes Plan: Continue home regimen of antihypertensives (3) Paroxysmal atrial fibrillation with rapid ventricular response Is this a current diagnosis for this admission?: Yes Plan: No previous history of atrial fibrillation I suspect that the patient has developed atrial fibrillation as part of his generalized inflammatory response and reactive nature to infection. At the moment a rate control strategy is preferable with emphasis on beta- blockers. The beta-blocking effect of intravenous amiodarone has been helpful in bringing down the rate. I would prefer not to use amiodarone as a long-term solution for this patient and would just prefer discontinuing the drug in the next 24 hours. Would prefer the use of AV herve blockers especially beta-blockers together with digoxin if necessary for rate control Increased risk of stroke on account of hypertension age and sex. Would prefer long-term systemic anticoagulation. Once she recovers for the infection and she continues to be in atrial fibrillation we can pursue cardiac rhythm islam with DENIA guided cardioversion preferably (4) Dyslipidemia Is this a current diagnosis for this admission?: Yes Plan: Continue statin
[2020-09-03] MEDS: ENOXAPARIN SODIUM INJ 120 MG/0.8 ML DISP.SYRIN SUBCUT SCH ×2 (10:27→21:36)
[2020-09-03] MEDS: ZINC SULFATE 220 MG CAPSULE PO SCH (10:28)
[2020-09-03] MEDS: METOPROLOL SUCCINATE 25 MG TAB.SR.24H PO SCH (10:28)
[2020-09-03] MEDS: ASPIRIN 81 MG TABLET, ENT COATED PO SCH (10:28)
[2020-09-03] MEDS: DEXAMETHASONE SOD PHOSPHATE INJ 4 MG/1 ML VIAL IV SCH (10:28)
[2020-09-03] MEDS: CHOLECALCIFEROL (D3) 1,000 UNIT (25 MCG) TABLET PO SCH (10:28)
[2020-09-03] MEDS: AZITHROMYCIN 250 MG TABLET PO SCH (10:28)
[2020-09-03] MEDS: LOSARTAN POTASSIUM 25 MG TABLET PO SCH (10:28)
[2020-09-03] MEDS: ASCORBIC ACID 500 MG TABLET PO SCH ×2 (10:28→17:29)
[2020-09-03] MEDS: FAMOTIDINE 20 MG TABLET PO SCH ×2 (10:29→21:36)
[2020-09-03] MEDS: DOCUSATE SODIUM 100 MG CAPSULE PO SCH ×2 (10:29→10:49)
[2020-09-03] MEDS: CEFTRIAXONE 1 GM/D5W RTU 1 GM/50 ML RTUPB IV SCH (10:29)
[2020-09-03] MEDS ORDERED: POLYETHYLENE GLYCOL 3350 POWDER 17 GM/1 PACKET PO PRN (11:03)
[2020-09-03] MEDS ORDERED: TEMAZEPAM 7.5 MG CAPSULE PO PRN (11:04)
--- NOTE | 2020-09-03 12:14 | PDOC PROGRESS REPORT ---
Subjective Date:: 09/03/20 Subjective:: SU BOND is a 70 year old female past medical history of hypertension and hypothyroidism presented to ED complaining of worsening shortness of breath. Patient was recently exposed to COVID-19, stating that a week after exposure she was feeling tired and went to get tested for COVID-19, on Thursday he was called and told that she had tested positive for COVID-19. Patient is stating that her fatigue and shortness of breath got worse and that is what brought her to the ED. Patient is stating that she did not have any fever, anosmia, dysgeusia, she did have diarrhea which has resolved. Denies any chest pain, fever, chills, nausea, vomiting, diarrhea, constipation or any urinary symptoms. ED she was noted to be hypoxic, chest x-ray was positive for diffuse bilateral alveolar interstitial infiltrates. Hospitalist consulted for admission. 08/24/2020. Reporting mild improvement of her currently on BiPAP at 60% FiO2 saturating WNL, no leukocytosis, improving of inflammatory markers, alert and oriented x3, cooperative with physical examination, answering question appropriately, denies any fever, chills, nausea, vomiting, diarrhea, constipation or any urinary symptoms. 09/02/2020. No acute events noted, and unfortunately patient was noted to be in A. fib RVR this morning, was given a dose of Cardizem with no improvement, on my encounter patient does not seem to be in any acute distress and that she is not doing any better than yesterday, stating that she did have history of A. fib RVR and was followed by Dr. Olaf Squires, had monitor placed and was told that she did not need any chronic anticoagulation, denies any fever, chills, nausea, vomiting, diarrhea, constipation or any urinary symptoms. 09/03/2020. No acute events overnight. Patient is stating that she is improving mildly compared to yesterday, stating that she could not sleep yesterday and she feels exhausted, otherwise denies any fever, chills, nausea, vomiting. P.o. tolerant. Last bowel movement 24 hours ago. Possible discharge to 3 days. Currently saturating 100% on nonrebreather 30 L/min. Heart rate has been controlled this morning. Reason For Visit: COVID-19 Physical Exam Vital Signs: Temp Pulse Resp BP Pulse Ox 97.7 F 89 22 H 118/84 96 09/03/20 11:37 09/03/20 11:00 09/03/20 08:45 09/03/20 11:00 09/03/20 08:45 Intake & Output 09/02/20 09/03/20 09/04/20 06:59 06:59 06:59 Intake Total 794 100 Output Total 200 Balance 794 -100 Weight 129.2 kg 127 kg General appearance: PRESENT: mild distress, morbidly obese, well-developed, well-nourished Head exam: PRESENT: atraumatic, normocephalic Respiratory exam: PRESENT: accessory muscle use, crackles, tachypnea. ABSENT: rales, rhonchi, wheezes Cardiovascular exam: PRESENT: RRR. ABSENT: diastolic murmur, rubs, systolic murmur GI/Abdominal exam: PRESENT: normal bowel sounds, soft. ABSENT: distended, guarding, mass, organolmegaly, rebound, tenderness Neurological exam: PRESENT: alert, awake, oriented to person, oriented to place, oriented to time, oriented to situation, CN II-XII grossly intact. ABSENT: motor sensory deficit Results Laboratory Results: 09/03/20 05:38 09/03/20 05:38 09/03/20 09/03/20 05:38 05:38 WBC 8.2 RBC 4.38 Hgb 13.6 Hct 39.4 MCV 90 MCH 31.0 MCHC 34.4 RDW 13.5 Plt Count 358 Sodium 140.7 Potassium 4.1 Chloride 106 Carbon Dioxide 26 Anion Gap 9 BUN 21 H Creatinine 0.73 Est GFR ( Amer) > 60 Glucose 117 H Calcium 8.7 Magnesium 2.4 H Ferritin 1040.00 H Total Bilirubin 0.7 AST 54 H Alkaline Phosphatase 60 C-Reactive Protein 33.4 H Total Protein 6.2 L Albumin 3.3 L 08/31/20 12:15 Troponin I < 0.012 Impressions: Chest X-Ray 08/31/20 12:28 IMPRESSION: Diffuse bilateral alveolar and interstitial infiltrates Assessment and Plan - Diagnosis (1) Acute respiratory failure due to COVID-19 Is this a current diagnosis for this admission?: Yes Plan: Improving. BiPAP dependent. FiO2 60%. SPO2 WNL. Tested positive for COVID-19 as outpatient. Presented to ED with worsening shortness of breath. Hypoxic on admission. Continue empiric IV antibiotics, duo nebs, IV steroids, flutter valve, incentive spirometry, effervescent plasma transfusion, pulmonary toileting. Day 4 IV antibiotics. Day 4 IV ceftriaxone. Day 4 IV azithromycin. Status post effervescent plasma transfusion. Not sure if she will qualify for remdesivir but will contact pharmacy. (2) Paroxysmal atrial fibrillation with rapid ventricular response Is this a current diagnosis for this admission?: Yes Plan: Rate controlled. Anticoagulated. History of paroxysmal atrial fibrillation. Noted to be on A. fib RVR. Likely brought on by acute illness. As per patient she was diagnosed with A. 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 She was told that she did not need any medication at this point. Difficult to control A. fib. Patient failed Cardizem drip and digoxin. Patient has responded well to amiodarone drip and beta-blockers. As per cardiology recommendation we will DC amiodarone drip and continue beta- blockers. Continue telemetry, beta-blockers, as needed digoxin,, anticoagulation, cardiology consult. Patient can be switched to p.o. oral anticoagulants upon discharge. (3) Hypertension Qualifiers: Hypertension type: essential hypertension Qualified Code(s): I10 - Essential (primary) hypertension Is this a current diagnosis for this admission?: Yes Plan: Euvolemic. Normotensive. Resume home meds. Adjust meds as needed. As needed IV hydralazine. (4) Morbid obesity Is this a current diagnosis for this admission?: Yes Plan: BMI 46.6. Diet and lifestyle modification recommended. Hemoglobin A1c WNL. TSH WNL. Elevated lipid profile. (5) Hypothyroidism Is this a current diagnosis for this admission?: Yes Plan: Resume home meds. TSH WNL. (6) Dyslipidemia Is this a current diagnosis for this admission?: Yes Plan: ASCVD score of 18.1.% High intensity statins indicated. We will start on atorvastatin 40 mg nightly. - Time Time Spent with patient: 25-34 minutes Anticipated Discharge Disposition: Home, Self Care Anticipated Discharge Timeframe: within 48 hours
[2020-09-03] MEDS ORDERED: PHARMACY COMMUNICATION ORDER MC NR (12:30)
[2020-09-03] MEDS: GUAIFENESIN/D-METHORPHAN (200-20 MG) SYRUP 10 ML PO PRN (13:17)
[2020-09-03] MEDS ORDERED: REMDESIVIR 200 MG in NORMAL SALINE 250 ML IV ONE (16:00)
[2020-09-03 17:04] LABS: APPEARANCE,URINE SLIGHTLY-CLOUDY; BILIRUBIN,URINE NEGATIVE (NEGATIVE); COLOR,URINE AMBER; GLUCOSE, URINE NEGATIVE (NEGATIVE); KETONES,URINE NEGATIVE (NEGATIVE); LEUKOCYTE ESTERASE,URINE NEGATIVE (NEGATIVE); NITRITE,URINE NEGATIVE (NEGATIVE); PROTEIN,URINE 30 mg/dL (NEGATIVE); URINE SPECIFIC GRAVITY 1.028
[2020-09-03] MEDS: GUAIFENESIN 600 MG TABLET.SA PO SCH (21:36)
[2020-09-03] MEDS: ATORVASTATIN CALCIUM 40 MG TABLET PO SCH (21:36)
[2020-09-04] MEDS: LEVOTHYROXINE SODIUM 0.088 MG TABLET PO SCH (05:13)
[2020-09-04 06:19] LABS: ABSOLUTE LYMPHOCYTES (AUTO) 0.7 10^3/uL (0.5-4.7); ABSOLUTE MONOCYTES (AUTO) 0.3 10^3/uL (0.1-1.4); ABSOLUTE NEUT (AUTO) 6.3 10^3/uL (1.7-8.2); BASOPHILS % (AUTO) 0.2 % (0-2); EOSINOPHILS % (AUTO) 0.1 % (0-6); HEMATOCRIT 41.4 % (36.0-47.0); HEMOGLOBIN 14.3 g/dL (12.0-15.5); MEAN CORPUSCULAR HEMOGLOBIN 31.1 pg (27.0-33.4); MEAN CORPUSCULAR HGB CONC 34.5 g/dL (32.0-36.0); MEAN CORPUSCULAR VOLUME 90 fl (80-97); MONOCYTES % (AUTO) 4.2 % (3-13); PLATELET COUNT 402 10^3/uL (150-450); RED CELL DISTRIBUTION WIDTH 13.4 % (11.5-14.0); SEGMENTED NEUTROPHILS % (AUTO) 86.5 % (42-78); TOTAL CELLS COUNTED % (AUTO) 100 %; WHITE BLOOD COUNT 7.3 10^3/uL (4.0-10.5)
[2020-09-04 06:42] LABS: ALBUMIN 3.4 g/dL (3.5-5.0); ALKALINE PHOSPHATASE 59 U/L (38-126); ANION GAP 6 (5-19); ASPARTATE AMINO TRANSFERASE 51 U/L (14-36); BILIRUBIN,DIRECT 0.2 mg/dL (0.0-0.4); BILIRUBIN,TOTAL 0.6 mg/dL (0.2-1.3); BLOOD UREA NITROGEN 24 mg/dL (7-20); C-REACTIVE PROTEIN 27.8 mg/L (<10.0); CALCIUM 8.7 mg/dL (8.4-10.2); CARBON DIOXIDE 28 mmol/L (22-30); CHLORIDE 106 mmol/L (98-107); GLUCOSE 100 mg/dL (75-110); POTASSIUM 4.4 mmol/L (3.6-5.0); TOTAL PROTEIN 6.4 g/dL (6.3-8.2)
[2020-09-04] MEDS: ENOXAPARIN SODIUM INJ 120 MG/0.8 ML DISP.SYRIN SUBCUT SCH ×2 (09:06→21:14)
[2020-09-04] MEDS: IPRATROPIUM BROMIDE 0.02% NEB 0.5 MG/2.5 ML AMPUL NEB SCH ×3 (09:06→20:35)
[2020-09-04] MEDS: METOPROLOL SUCCINATE 25 MG TAB.SR.24H PO SCH (09:06)
[2020-09-04] MEDS: LEVALBUTEROL HCL NEB 0.63 MG/3 ML AMPUL NEB SCH ×3 (09:06→20:35)
[2020-09-04] MEDS: CHOLECALCIFEROL (D3) 1,000 UNIT (25 MCG) TABLET PO SCH (09:06)
[2020-09-04] MEDS: ASPIRIN 81 MG TABLET, ENT COATED PO SCH (09:06)
[2020-09-04] MEDS: GUAIFENESIN 600 MG TABLET.SA PO SCH ×2 (09:06→21:14)
[2020-09-04] MEDS: DEXAMETHASONE SOD PHOSPHATE INJ 4 MG/1 ML VIAL IV SCH (09:06)
[2020-09-04] MEDS: FAMOTIDINE 20 MG TABLET PO SCH ×2 (09:06→21:14)
[2020-09-04] MEDS: ZINC SULFATE 220 MG CAPSULE PO SCH (09:07)
[2020-09-04] MEDS: AZITHROMYCIN 250 MG TABLET PO SCH (09:07)
[2020-09-04] MEDS: CEFTRIAXONE 1 GM/D5W RTU 1 GM/50 ML RTUPB IV SCH (09:07)
[2020-09-04] MEDS: DOCUSATE SODIUM 100 MG CAPSULE PO SCH (09:07)
[2020-09-04] MEDS: LOSARTAN POTASSIUM 25 MG TABLET PO SCH (09:07)
[2020-09-04] MEDS: ASCORBIC ACID 500 MG TABLET PO SCH ×2 (09:07→17:54)
[2020-09-04] MEDS: REMDESIVIR 100 MG in NORMAL SALINE 250 ML IV SCH (10:48)
[2020-09-04] MEDS: METOPROLOL TARTRATE PF/INJ 5 MG/5 ML SDV IV PRN (12:47)
--- NOTE | 2020-09-04 13:25 | PDOC PROGRESS REPORT ---
Subjective Date:: 09/04/20 Subjective:: Patient seen and examined. She is on supplemental oxygen by facemask. Reports that she feels better. She continues to be in atrial fibrillation and the rate is better controlled although when she has paroxysms of dyspnea and the heart rate does go up. She does not endorse palpitations or chest pain. Amiodarone infusion was discontinued. Reason For Visit: COVID-19 Physical Exam Vital Signs: Temp Pulse Resp BP Pulse Ox 98.5 F 88 24 H 119/79 95 09/04/20 11:26 09/04/20 11:26 09/04/20 11:26 09/04/20 11:26 09/04/20 11:26 Intake & Output 09/03/20 09/04/20 09/05/20 06:59 06:59 06:59 Intake Total 100 1030 360 Output Total 200 380 Balance -100 650 360 Weight 127 kg 128.4 kg General appearance: PRESENT: cooperative, mild distress, obese, well-developed, well-nourished Head exam: PRESENT: atraumatic, normocephalic Eye exam: PRESENT: conjunctiva pink Mouth exam: PRESENT: moist Respiratory exam: PRESENT: crackles, decreased breath sounds, symmetrical, unlabored Cardiovascular exam: PRESENT: irregular rhythm, +S1, +S2 Pulses: PRESENT: normal radial pulses GI/Abdominal exam: PRESENT: soft Rectal exam: PRESENT: deferred Musculoskeletal exam: PRESENT: normal inspection Neurological exam: PRESENT: alert, awake, oriented to person, oriented to place, oriented to time, oriented to situation Psychiatric exam: PRESENT: appropriate affect Skin exam: PRESENT: dry, intact, normal color Results Laboratory Results: 09/04/20 05:45 09/04/20 05:45 09/03/20 09/04/20 09/04/20 16:40 05:45 05:45 WBC 7.3 RBC 4.60 Hgb 14.3 Hct 41.4 MCV 90 MCH 31.1 MCHC 34.5 RDW 13.4 Plt Count 402 Seg Neutrophils % 86.5 H Sodium 139.6 Potassium 4.4 Chloride 106 Carbon Dioxide 28 Anion Gap 6 BUN 24 H Creatinine 0.75 Est GFR ( Amer) > 60 Glucose 100 Calcium 8.7 Ferritin 888.00 H Total Bilirubin 0.6 AST 51 H Alkaline Phosphatase 59 C-Reactive Protein 27.8 H Total Protein 6.4 Albumin 3.4 L Urine Color MEGHAN Urine Appearance SLIGHTLY-CLOUDY Urine pH 6.0 Ur Specific [place] 1.028 Urine Protein 30 H Urine Glucose (UA) NEGATIVE Urine Ketones NEGATIVE Urine Blood SMALL H Urine Nitrite NEGATIVE Ur Leukocyte Esterase NEGATIVE Urine WBC (Auto) 1 Urine RBC (Auto) 3 08/31/20 12:15 Troponin I < 0.012 EKG Comments: Telemetry shows atrial fibrillation with rate controlled at about 100 bpm. Occasionally the rate does go up to 110 bpm unlike telemetry. Impressions: Chest X-Ray 08/31/20 12:28 IMPRESSION: Diffuse bilateral alveolar and interstitial infiltrates Assessment & Plan - Diagnosis (1) Acute respiratory failure due to COVID-19 Is this a current diagnosis for this admission?: Yes Plan: Supportive care Supplemental oxygen (2) Hypertension Qualifiers: Hypertension type: essential hypertension Qualified Code(s): I10 - Essential (primary) hypertension Is this a current diagnosis for this admission?: Yes Plan: Continue to watch blood pressure. We may have to escalate beta-migel therapy. (3) Paroxysmal atrial fibrillation with rapid ventricular response Is this a current diagnosis for this admission?: Yes Plan: Rate control strategy at the moment with active COVID-19 infection Intravenous amiodarone infusion has been discontinued Continue oral beta-migel Intravenous metoprolol can be used in small doses for better rate control if necessary and if the heart rate sustains. Given that this is a new finding for this patient will also consider transthoracic echocardiogram. Continue full dose enoxaparin. Consider transitioning to oral systemic anticoagulation with novel agent when able If the patient continues to be in atrial fibrillation after recovering from COV ID-19 infection would prefer DENIA guided cardioversion down the road. (4) Dyslipidemia Is this a current diagnosis for this admission?: Yes Plan: Continue statin therapy
--- NOTE | 2020-09-04 16:48 | PDOC PROGRESS REPORT ---
Subjective Date:: 09/04/20 Subjective:: Patient is not doing much in terms of eating but she is drinking all her Ensure. She states that she would like to try eating a little bit more today. We will see how she does with lunch and dinner. Treated better controlled on time. She was not having any shortness of breath but she was seen on a partial nonrebreather. Reason For Visit: COVID-19 Physical Exam Vital Signs: Temp Pulse Resp BP Pulse Ox 97.8 F 85 18 123/70 95 09/04/20 14:00 09/04/20 14:28 09/04/20 14:28 09/04/20 14:00 09/04/20 14:28 Intake & Output 09/03/20 09/04/20 09/05/20 06:59 06:59 06:59 Intake Total 100 1030 360 Output Total 200 380 Balance -100 650 360 Weight 127 kg 128.4 kg 128.4 kg General appearance: PRESENT: no acute distress, cooperative Neck exam: ABSENT: JVD Respiratory exam: PRESENT: symmetrical, unlabored. ABSENT: accessory muscle use, retraction, tachypnea, wheezes Cardiovascular exam: PRESENT: irregular rhythm, +S1, +S2. ABSENT: tachycardia GI/Abdominal exam: PRESENT: soft. ABSENT: rebound, rigid, tenderness Neurological exam: PRESENT: alert, awake, oriented to person, oriented to place, oriented to time Results Laboratory Results: 09/04/20 05:45 09/04/20 05:45 09/03/20 09/04/20 09/04/20 16:40 05:45 05:45 WBC 7.3 RBC 4.60 Hgb 14.3 Hct 41.4 MCV 90 MCH 31.1 MCHC 34.5 RDW 13.4 Plt Count 402 Seg Neutrophils % 86.5 H Sodium 139.6 Potassium 4.4 Chloride 106 Carbon Dioxide 28 Anion Gap 6 BUN 24 H Creatinine 0.75 Est GFR ( Amer) > 60 Glucose 100 Calcium 8.7 Ferritin 888.00 H Total Bilirubin 0.6 AST 51 H Alkaline Phosphatase 59 C-Reactive Protein 27.8 H Total Protein 6.4 Albumin 3.4 L Urine Color MEGHAN Urine Appearance SLIGHTLY-CLOUDY Urine pH 6.0 Ur Specific [place] 1.028 Urine Protein 30 H Urine Glucose (UA) NEGATIVE Urine Ketones NEGATIVE Urine Blood SMALL H Urine Nitrite NEGATIVE Ur Leukocyte Esterase NEGATIVE Urine WBC (Auto) 1 Urine RBC (Auto) 3 08/31/20 12:15 Troponin I < 0.012 Impressions: Chest X-Ray 08/31/20 12:28 IMPRESSION: Diffuse bilateral alveolar and interstitial infiltrates Assessment and Plan - Diagnosis (1) Pneumonia due to COVID-19 virus Is this a current diagnosis for this admission?: Yes Plan: Remdesivir day 2 Azithromycin day 4/5 Ceftriaxone day 4-discontinue Decadron day 5 s/p convalescent plasma (2) Acute respiratory failure due to COVID-19 Is this a current diagnosis for this admission?: Yes Plan: Transition between CPAP and high flow nasal cannula if available. Goal SPO2 of 90% or above. (3) Paroxysmal atrial fibrillation with rapid ventricular response Is this a current diagnosis for this admission?: Yes Plan: Likely triggered by current illness. Seems to be new onset of A. fib. Continue Toprol-XL for rate control. As needed IV Lopressor CHADSVASC of 3 --currently on anticoagulation Cardiology is following recommending TTE (4) Hypertension Qualifiers: Hypertension type: essential hypertension Qualified Code(s): I10 - Essential (primary) hypertension Is this a current diagnosis for this admission?: Yes Plan: Normotensive continue losartan - Time Time Spent with patient: 15-24 minutes Anticipated Discharge Disposition: Home, Self Care Anticipated Discharge Timeframe: unknown
[2020-09-04 18:17] LABS: INTERNATIONAL RATION (INR) 1.13; PROTHROMBIN TIME 14.7 SEC (11.4-15.4)
[2020-09-04 18:18] LABS: FIBRINOGEN 627 mg/dL (209-497)
[2020-09-04 18:20] LABS: D-DIMER 0.99 ug/mL (0.00-0.50)
[2020-09-04] MEDS: ATORVASTATIN CALCIUM 40 MG TABLET PO SCH (21:14)
[2020-09-05] MEDS: LEVOTHYROXINE SODIUM 0.088 MG TABLET PO SCH (05:22)
[2020-09-05 06:47] LABS: APPEARANCE,URINE CLOUDY; BILIRUBIN,URINE NEGATIVE (NEGATIVE); COLOR,URINE AMBER; GLUCOSE, URINE NEGATIVE (NEGATIVE); KETONES,URINE NEGATIVE (NEGATIVE); LEUKOCYTE ESTERASE,URINE NEGATIVE (NEGATIVE); NITRITE,URINE NEGATIVE (NEGATIVE); PROTEIN,URINE 30 mg/dL (NEGATIVE); URINE SPECIFIC GRAVITY 1.036
[2020-09-05 06:57] LABS: ABSOLUTE LYMPHOCYTES (AUTO) 0.8 10^3/uL (0.5-4.7); ABSOLUTE MONOCYTES (AUTO) 0.4 10^3/uL (0.1-1.4); ABSOLUTE NEUT (AUTO) 8.1 10^3/uL (1.7-8.2); BASOPHILS % (AUTO) 0.2 % (0-2); EOSINOPHILS % (AUTO) 0.3 % (0-6); HEMATOCRIT 40.4 % (36.0-47.0); LYMPHOCYTES % (AUTO) 8.4 % (13-45); MEAN CORPUSCULAR HEMOGLOBIN 31.3 pg (27.0-33.4); MEAN CORPUSCULAR HGB CONC 34.8 g/dL (32.0-36.0); MEAN CORPUSCULAR VOLUME 90 fl (80-97); MONOCYTES % (AUTO) 3.8 % (3-13); PLATELET COUNT 457 10^3/uL (150-450); RED BLOOD COUNT 4.49 10^6/uL (3.72-5.28); RED CELL DISTRIBUTION WIDTH 13.4 % (11.5-14.0); SEGMENTED NEUTROPHILS % (AUTO) 87.3 % (42-78); TOTAL CELLS COUNTED % (AUTO) 100 %; WHITE BLOOD COUNT 9.3 10^3/uL (4.0-10.5)
[2020-09-05 07:09] LABS: ALBUMIN 3.2 g/dL (3.5-5.0); ALKALINE PHOSPHATASE 59 U/L (38-126); ANION GAP 7 (5-19); ASPARTATE AMINO TRANSFERASE 43 U/L (14-36); BILIRUBIN,DIRECT 0.3 mg/dL (0.0-0.4); BILIRUBIN,TOTAL 0.6 mg/dL (0.2-1.3); BLOOD UREA NITROGEN 26 mg/dL (7-20); C-REACTIVE PROTEIN 23.3 mg/L (<10.0); CALCIUM 8.7 mg/dL (8.4-10.2); CARBON DIOXIDE 27 mmol/L (22-30); CHLORIDE 106 mmol/L (98-107); GLUCOSE 88 mg/dL (75-110); POTASSIUM 4.4 mmol/L (3.6-5.0); TOTAL PROTEIN 6.1 g/dL (6.3-8.2)
[2020-09-05] MEDS: LEVALBUTEROL HCL NEB 0.63 MG/3 ML AMPUL NEB SCH (08:50)
[2020-09-05] MEDS: IPRATROPIUM BROMIDE 0.02% NEB 0.5 MG/2.5 ML AMPUL NEB SCH ×3 (08:50→21:20)
--- NOTE | 2020-09-05 09:17 | XCELERA REPORT ---
[address] [address] Transthoracic Echocardiogram Report Name: SU BOND Age: 70 yrs Gender: Female : 1950 Patient Status: Inpatient Patient Location: [address] [place], [place] [address] Study Date: 09/04/2020 06:55 PM History: COVID-19 Atrial fibrillation Height: 65 in Weight: 283 lb BSA: 2.3 m2 Procedure: A complete two-dimensional transthoracic echocardiogram was performed (2D, M-mode, spectral and color flow Doppler). Reason For Study: new onset afib Previous Evaluation: No previous studies were available. History: COVID-19 Atrial fibrillation. Ordering Physician: ANATOLY URENA Performed By: Charlene Garcia Interpretation Summary Patient is in atrial fibrillation. Poor acoustic windows. Difficult study for valves and Doppler study on valves is suboptimal. Left ventricular systolic function is normal. The Ejection Fraction estimate is 55-60% The right ventricle is normal in size and function. There is a trace amount of mitral regurgitation There is no aortic valve stenosis There is a trace amount of tricuspid regurgitation There is no pericardial effusion. Patient is in atrial fibrillation. Poor acoustic windows. Difficult study for valves and Doppler study on valves is suboptimal. MMode/2D Measurements & Calculations RVDd: 2.6 cm LVIDd: 4.5 cm FS: 33.9 % Ao root diam: 3.0 cm IVSd: 0.73 cm LVIDs: 3.0 cm EDV(Teich): 91.8 ml Ao root area: 7.0 cm2 LVPWd: 0.99 cm ESV(Teich): 34.1 ml LA dimension: 3.0 cm EF(Teich): 62.9 % Doppler Measurements & Calculations MV E max kamran: MV P1/2t max kamran: Ao V2 max: LV V1 max P.0 cm/sec 104.7 cm/sec 180.0 cm/sec 6.4 mmHg MV A max kamran: MV P1/2t: 66.1 msec Ao max PG: LV V1 max: 33.3 cm/sec MVA(P1/2t): 3.3 cm2 13.0 mmHg 126.4 cm/sec MV E/A: 2.9 MV dec slope: 464.2 cm/sec2 MV dec time: 0.22 sec MV P1/2t-pr_phl: 66.1 msec Left Ventricle The left ventricle is normal in size. There is mild concentric left ventricular hypertrophy. Left ventricular systolic function is normal. The Ejection Fraction estimate is 55-60%. LV diastolic function not assessed. Regional wall motion abnormalities cannot be excluded due to limited visualization. Right Ventricle The right ventricle is normal in size and function. Atria The right atrium is normal. The left atrium is borderline dilated. Mitral Valve The mitral valve is grossly normal. There is no evidence of mitral valve prolapse. There is no mitral valve stenosis. There is a trace amount of mitral regurgitation. Aortic Valve The aortic valve is not well visualized secondary to technical limitations. There is no aortic valve stenosis. No aortic regurgitation is present. Tricuspid Valve The tricuspid valve is not well visualized secondary to technical limitations. There is a trace amount of tricuspid regurgitation. Great Vessels The aortic root is normal size. Effusions There is no pericardial effusion. : ANATOLY URENA Anil
[2020-09-05] MEDS: METOPROLOL TARTRATE PF/INJ 5 MG/5 ML SDV IV PRN (09:45)
[2020-09-05] MEDS: DEXAMETHASONE SOD PHOSPHATE INJ 4 MG/1 ML VIAL IV SCH (10:29)
[2020-09-05] MEDS: ENOXAPARIN SODIUM INJ 120 MG/0.8 ML DISP.SYRIN SUBCUT SCH ×2 (10:29→21:08)
[2020-09-05] MEDS: GUAIFENESIN 600 MG TABLET.SA PO SCH ×2 (10:29→21:08)
[2020-09-05] MEDS: FAMOTIDINE 20 MG TABLET PO SCH ×2 (10:29→21:08)
[2020-09-05] MEDS: ZINC SULFATE 220 MG CAPSULE PO SCH (10:30)
[2020-09-05] MEDS: ASCORBIC ACID 500 MG TABLET PO SCH ×2 (10:30→17:30)
[2020-09-05] MEDS: CHOLECALCIFEROL (D3) 1,000 UNIT (25 MCG) TABLET PO SCH (10:30)
[2020-09-05] MEDS: REMDESIVIR 100 MG in NORMAL SALINE 250 ML IV SCH (10:30)
[2020-09-05] MEDS: DOCUSATE SODIUM 100 MG CAPSULE PO SCH (10:30)
[2020-09-05] MEDS: ASPIRIN 81 MG TABLET, ENT COATED PO SCH (10:30)
[2020-09-05] MEDS: AZITHROMYCIN 250 MG TABLET PO SCH (10:30)
[2020-09-05] MEDS: METOPROLOL SUCCINATE 25 MG TAB.SR.24H PO SCH (10:30)
[2020-09-05] MEDS: LOSARTAN POTASSIUM 25 MG TABLET PO SCH (10:30)
--- NOTE | 2020-09-05 13:15 | PDOC PROGRESS REPORT ---
Subjective Date:: 09/05/20 Subjective:: Patient was seen and examined. Continues to do better. On nonrebreather. Reason For Visit: COVID-19 Physical Exam Vital Signs: Temp Pulse Resp BP Pulse Ox 98.5 F 96 22 H 116/84 89 L 09/05/20 11:56 09/05/20 11:56 09/05/20 11:56 09/05/20 11:56 09/05/20 11:56 Intake & Output 09/04/20 09/05/20 09/06/20 06:59 06:59 06:59 Intake Total 1030 970 Output Total 380 875 Balance 650 95 Weight 128.4 kg 129.1 kg General appearance: PRESENT: no acute distress, morbidly obese, well-developed, well-nourished Head exam: PRESENT: atraumatic, normocephalic Mouth exam: PRESENT: moist Respiratory exam: PRESENT: symmetrical, unlabored Cardiovascular exam: PRESENT: irregular rhythm, +S1, +S2 GI/Abdominal exam: PRESENT: soft Rectal exam: PRESENT: deferred Musculoskeletal exam: PRESENT: normal inspection Skin exam: PRESENT: intact Results Laboratory Results: 09/05/20 05:42 09/05/20 05:42 09/05/20 09/05/20 09/05/20 05:40 05:42 05:42 WBC 9.3 RBC 4.49 Hgb 14.0 Hct 40.4 MCV 90 MCH 31.3 MCHC 34.8 RDW 13.4 Plt Count 457 H Seg Neutrophils % 87.3 H Sodium 139.8 Potassium 4.4 Chloride 106 Carbon Dioxide 27 Anion Gap 7 BUN 26 H Creatinine 0.75 Est GFR ( Amer) > 60 Glucose 88 Calcium 8.7 Ferritin 708.00 H Total Bilirubin 0.6 AST 43 H Alkaline Phosphatase 59 C-Reactive Protein 23.3 H Total Protein 6.1 L Albumin 3.2 L Urine Color MEGHAN Urine Appearance CLOUDY Urine pH 5.0 Ur Specific [place] 1.036 Urine Protein 30 H Urine Glucose (UA) NEGATIVE Urine Ketones NEGATIVE Urine Blood NEGATIVE Urine Nitrite NEGATIVE Ur Leukocyte Esterase NEGATIVE Urine WBC (Auto) 0 Urine RBC (Auto) 1 08/31/20 13:02 Blood Blood Culture - Final NO GROWTH IN 5 DAYS 08/31/20 12:15 Blood Blood Culture - Final NO GROWTH IN 5 DAYS 08/31/20 12:15 Troponin I < 0.012 Impressions: Chest X-Ray 08/31/20 12:28 IMPRESSION: Diffuse bilateral alveolar and interstitial infiltrates Assessment & Plan - Diagnosis (1) Acute respiratory failure due to COVID-19 Is this a current diagnosis for this admission?: Yes Plan: Supportive care Supplemental oxygen (2) Hypertension Qualifiers: Hypertension type: essential hypertension Qualified Code(s): I10 - Essential (primary) hypertension Is this a current diagnosis for this admission?: Yes Plan: Continue to watch blood pressure. We may have to escalate beta-migel therapy. (3) Paroxysmal atrial fibrillation with rapid ventricular response Is this a current diagnosis for this admission?: Yes Plan: Rate control strategy at the moment with active COVID-19 infection Intravenous amiodarone infusion has been discontinued Continue oral beta-migel Intravenous metoprolol can be used in small doses for better rate control if necessary and if the heart rate sustains. Transthoracic echocardiogram shows preserved ejection fraction and no significant valve lesion. Continue full dose enoxaparin. Consider transitioning to oral systemic anticoagulation with novel agent when able If the patient continues to be in atrial fibrillation after recovering from COVID-19 infection would prefer DENIA guided cardioversion down the road. (4) Dyslipidemia Is this a current diagnosis for this admission?: Yes
--- NOTE | 2020-09-05 14:08 | PDOC PROGRESS REPORT ---
Subjective Date:: 09/05/20 Subjective:: Patient oriented morning afebrile here in the 130s. She did receive a dose of L opressor. She is feeling better in terms of her shortness of breath. She is still on Oxymizer. She denies any chest pain. She did do better with her meals yesterday. Reason For Visit: COVID-19 Physical Exam Vital Signs: Temp Pulse Resp BP Pulse Ox 98.5 F 96 22 H 116/84 89 L 09/05/20 11:56 09/05/20 11:56 09/05/20 11:56 09/05/20 11:56 09/05/20 11:56 Intake & Output 09/04/20 09/05/20 09/06/20 06:59 06:59 06:59 Intake Total 1030 970 Output Total 380 875 Balance 650 95 Weight 128.4 kg 129.1 kg General appearance: PRESENT: no acute distress, cooperative, morbidly obese. ABSENT: mild distress, severe distress Neck exam: ABSENT: JVD Respiratory exam: PRESENT: crackles, symmetrical, tachypnea, unlabored. ABSENT: accessory muscle use, stridor, wheezes Cardiovascular exam: PRESENT: irregular rhythm, +S1, +S2, tachycardia GI/Abdominal exam: PRESENT: soft. ABSENT: rebound, rigid, tenderness Neurological exam: PRESENT: alert, awake, oriented to person, oriented to place, oriented to time, oriented to situation Results Laboratory Results: 09/05/20 05:42 09/05/20 05:42 09/05/20 09/05/20 09/05/20 05:40 05:42 05:42 WBC 9.3 RBC 4.49 Hgb 14.0 Hct 40.4 MCV 90 MCH 31.3 MCHC 34.8 RDW 13.4 Plt Count 457 H Seg Neutrophils % 87.3 H Sodium 139.8 Potassium 4.4 Chloride 106 Carbon Dioxide 27 Anion Gap 7 BUN 26 H Creatinine 0.75 Est GFR ( Amer) > 60 Glucose 88 Calcium 8.7 Ferritin 708.00 H Total Bilirubin 0.6 AST 43 H Alkaline Phosphatase 59 C-Reactive Protein 23.3 H Total Protein 6.1 L Albumin 3.2 L Urine Color MEGHAN Urine Appearance CLOUDY Urine pH 5.0 Ur Specific [place] 1.036 Urine Protein 30 H Urine Glucose (UA) NEGATIVE Urine Ketones NEGATIVE Urine Blood NEGATIVE Urine Nitrite NEGATIVE Ur Leukocyte Esterase NEGATIVE Urine WBC (Auto) 0 Urine RBC (Auto) 1 08/31/20 13:02 Blood Blood Culture - Final NO GROWTH IN 5 DAYS 08/31/20 12:15 Blood Blood Culture - Final NO GROWTH IN 5 DAYS 08/31/20 12:15 Troponin I < 0.012 Impressions: Chest X-Ray 08/31/20 12:28 IMPRESSION: Diffuse bilateral alveolar and interstitial infiltrates Assessment and Plan - Diagnosis (1) Pneumonia due to COVID-19 virus Is this a current diagnosis for this admission?: Yes Plan: Remdesivir day 3 Azithromycin day 5/5 Ceftriaxone discontinued after 4 days. Decadron day 5 s/p convalescent plasma (2) Acute respiratory failure due to COVID-19 Is this a current diagnosis for this admission?: Yes Plan: still hypoxic requiring oxymizer at 15L (3) Paroxysmal atrial fibrillation with rapid ventricular response Is this a current diagnosis for this admission?: Yes Plan: Likely triggered by current illness. Seems to be new onset of A. fib. Still uncontrolled. Increase Toprol-XL to 50 mg daily As needed IV Lopressor CHADSVASC of 3 --currently on anticoagulation TTE suboptimal shows normal ejection fraction. Valves cannot be adequately assessed due to poor windows. Cardiology is following (4) Hypertension Qualifiers: Hypertension type: essential hypertension Qualified Code(s): I10 - Essential (primary) hypertension Is this a current diagnosis for this admission?: Yes Plan: Normotensive continue losartan - Time Time Spent with patient: 15-24 minutes Anticipated Discharge Disposition: Home, Self Care Anticipated Discharge Timeframe: 1 week
[2020-09-05] MEDS ORDERED: METOPROLOL SUCCINATE 25 MG TAB.SR.24H PO ONE (15:00)
[2020-09-05] MEDS: ATORVASTATIN CALCIUM 40 MG TABLET PO SCH (21:08)
[2020-09-06] MEDS: LEVOTHYROXINE SODIUM 0.088 MG TABLET PO SCH (05:28)
[2020-09-06 06:37] LABS: C-REACTIVE PROTEIN 37.1 mg/L (<10.0)
[2020-09-06] MEDS: IPRATROPIUM BROMIDE 0.02% NEB 0.5 MG/2.5 ML AMPUL NEB SCH ×3 (08:39→20:26)
[2020-09-06] MEDS: METOPROLOL TARTRATE PF/INJ 5 MG/5 ML SDV IV PRN (08:53)
[2020-09-06] MEDS: ALPRAZOLAM 0.25 MG TABLET PO PRN (08:53)
[2020-09-06] MEDS: DEXAMETHASONE SOD PHOSPHATE INJ 4 MG/1 ML VIAL IV SCH (09:54)
[2020-09-06] MEDS: METOPROLOL SUCCINATE 50 MG TAB.SR.24H PO SCH (09:56)
[2020-09-06] MEDS: GUAIFENESIN 600 MG TABLET.SA PO SCH ×2 (09:56→22:04)
[2020-09-06] MEDS: DOCUSATE SODIUM 100 MG CAPSULE PO SCH (09:56)
[2020-09-06] MEDS: ASPIRIN 81 MG TABLET, ENT COATED PO SCH (09:56)
[2020-09-06] MEDS: ENOXAPARIN SODIUM INJ 120 MG/0.8 ML DISP.SYRIN SUBCUT SCH ×2 (09:56→22:05)
[2020-09-06] MEDS: LOSARTAN POTASSIUM 25 MG TABLET PO SCH (09:57)
[2020-09-06] MEDS: FAMOTIDINE 20 MG TABLET PO SCH ×2 (09:57→22:04)
[2020-09-06] MEDS: ZINC SULFATE 220 MG CAPSULE PO SCH (09:57)
[2020-09-06] MEDS: AZITHROMYCIN 250 MG TABLET PO SCH (09:57)
[2020-09-06] MEDS: CHOLECALCIFEROL (D3) 1,000 UNIT (25 MCG) TABLET PO SCH (09:57)
[2020-09-06] MEDS ORDERED: METOPROLOL SUCCINATE 25 MG TAB.SR.24H PO SCH (10:00)
[2020-09-06] MEDS: ASCORBIC ACID 500 MG TABLET PO SCH ×2 (11:01→17:02)
[2020-09-06] MEDS: REMDESIVIR 100 MG in NORMAL SALINE 250 ML IV SCH (11:01)
[2020-09-06] MEDS ORDERED: METOPROLOL TARTRATE PF/INJ 5 MG/5 ML SDV IV ONE ×2 (12:37→12:39)
[2020-09-06] MEDS ORDERED: NORMAL SALINE 1000 ML 1,000 ML IV ONE (12:37)
--- NOTE | 2020-09-06 14:34 | PDOC PROGRESS REPORT ---
Subjective Date:: 09/06/20 Subjective:: [place] short of breath this morning. Feels tired. Has been eating okay. In A. f ib RVR this morning once again in the 130s. Reason For Visit: COVID-19 Physical Exam Vital Signs: Temp Pulse Resp BP Pulse Ox 97.5 F 77 22 H 107/65 97 09/06/20 11:19 09/06/20 11:19 09/06/20 11:19 09/06/20 11:19 09/06/20 11:19 Intake & Output 09/05/20 09/06/20 09/07/20 06:59 06:59 06:59 Intake Total 970 415 250 Output Total 875 725 Balance 95 -310 250 Weight 129.1 kg General appearance: PRESENT: no acute distress, cooperative Neck exam: ABSENT: JVD Respiratory exam: PRESENT: crackles, symmetrical, unlabored. ABSENT: tachypnea, wheezes Cardiovascular exam: PRESENT: irregular rhythm, +S1, +S2, tachycardia GI/Abdominal exam: PRESENT: soft. ABSENT: rebound, rigid, tenderness Neurological exam: PRESENT: alert, awake, oriented to person, oriented to place, oriented to time, oriented to situation Psychiatric exam: PRESENT: anxious - Mild. ABSENT: agitated Results Laboratory Results: 09/05/20 05:42 09/05/20 05:42 09/06/20 05:12 Ferritin 672.00 H C-Reactive Protein 37.1 H 08/31/20 13:02 Blood Blood Culture - Final NO GROWTH IN 5 DAYS 08/31/20 12:15 Blood Blood Culture - Final NO GROWTH IN 5 DAYS 08/31/20 12:15 Troponin I < 0.012 Impressions: Chest X-Ray 08/31/20 12:28 IMPRESSION: Diffuse bilateral alveolar and interstitial infiltrates Assessment and Plan - Diagnosis (1) Pneumonia due to COVID-19 virus Is this a current diagnosis for this admission?: Yes Plan: Remdesivir day 4 s/p 5 days of azithromycin Ceftriaxone discontinued after 4 days. Decadron day 6 s/p convalescent plasma (2) Acute respiratory failure due to COVID-19 Is this a current diagnosis for this admission?: Yes Plan: Got more hypoxic today and had to be placed on CPAP. She is currently having good saturation on the CPAP. We will try to transition her back to Oxymizer later today. (3) Paroxysmal atrial fibrillation with rapid ventricular response Is this a current diagnosis for this admission?: Yes Plan: Likely triggered by current illness. Seems to be new onset of A. fib. Still uncontrolled and achieving good control of this will be difficult until her current illness shows proper improvement. Continue Toprol-XL to 50 mg daily As needed IV Lopressor Give 1 bolus normal saline. CHADSVASC of 3 --currently on anticoagulation TTE suboptimal shows normal ejection fraction. Valves cannot be adequately assessed due to poor windows. (4) Hypertension Qualifiers: Hypertension type: essential hypertension Qualified Code(s): I10 - Essential (primary) hypertension Is this a current diagnosis for this admission?: Yes Plan: Normotensive continue losartan (5) Anxiety Is this a current diagnosis for this admission?: Yes (6) Morbid obesity with BMI of 45.0-49.9, adult Is this a current diagnosis for this admission?: Yes - Time Time Spent with patient: 15-24 minutes Anticipated Discharge Disposition: Home with Home Health Anticipated Discharge Timeframe: unknown
[2020-09-06] MEDS: ATORVASTATIN CALCIUM 40 MG TABLET PO SCH (22:06)
[2020-09-07] MEDS: LEVOTHYROXINE SODIUM 0.088 MG TABLET PO SCH (05:26)
[2020-09-07 06:09] LABS: HEMATOCRIT 41.6 % (36.0-47.0); HEMOGLOBIN 14.3 g/dL (12.0-15.5); MEAN CORPUSCULAR HEMOGLOBIN 30.8 pg (27.0-33.4); MEAN CORPUSCULAR HGB CONC 34.3 g/dL (32.0-36.0); MEAN CORPUSCULAR VOLUME 90 fl (80-97); PLATELET COUNT 488 10^3/uL (150-450); RED BLOOD COUNT 4.64 10^6/uL (3.72-5.28); RED CELL DISTRIBUTION WIDTH 13.3 % (11.5-14.0); WHITE BLOOD COUNT 12.2 10^3/uL (4.0-10.5)
[2020-09-07 06:39] LABS: C-REACTIVE PROTEIN 47.1 mg/L (<10.0)
[2020-09-07] MEDS: IPRATROPIUM BROMIDE 0.02% NEB 0.5 MG/2.5 ML AMPUL NEB SCH ×3 (08:23→19:50)
[2020-09-07] MEDS: METOPROLOL TARTRATE PF/INJ 5 MG/5 ML SDV IV PRN ×2 (08:33→16:32)
[2020-09-07] MEDS: ALPRAZOLAM 0.25 MG TABLET PO PRN (08:49)
[2020-09-07] MEDS: DEXAMETHASONE SOD PHOSPHATE INJ 4 MG/1 ML VIAL IV SCH (09:52)
[2020-09-07] MEDS: ENOXAPARIN SODIUM INJ 120 MG/0.8 ML DISP.SYRIN SUBCUT SCH (09:52)
[2020-09-07] MEDS: ASCORBIC ACID 500 MG TABLET PO SCH ×2 (09:53→17:14)
[2020-09-07] MEDS: DOCUSATE SODIUM 100 MG CAPSULE PO SCH (09:53)
[2020-09-07] MEDS: FAMOTIDINE 20 MG TABLET PO SCH ×2 (09:53→21:22)
[2020-09-07] MEDS: ZINC SULFATE 220 MG CAPSULE PO SCH (09:53)
[2020-09-07] MEDS: CHOLECALCIFEROL (D3) 1,000 UNIT (25 MCG) TABLET PO SCH (09:53)
[2020-09-07] MEDS: LOSARTAN POTASSIUM 25 MG TABLET PO SCH (09:54)
[2020-09-07] MEDS: GUAIFENESIN 600 MG TABLET.SA PO SCH ×2 (09:54→21:22)
[2020-09-07] MEDS: METOPROLOL SUCCINATE 50 MG TAB.SR.24H PO SCH (09:54)
[2020-09-07] MEDS: ASPIRIN 81 MG TABLET, ENT COATED PO SCH (09:54)
[2020-09-07] MEDS: REMDESIVIR 100 MG in NORMAL SALINE 250 ML IV SCH (10:58)
--- NOTE | 2020-09-07 13:21 | PDOC PROGRESS REPORT ---
Subjective Date:: 09/07/20 Subjective:: Patient complains of fatigue. Shortness of breath is not remarkable to her at t his point. She is still on Oxymizer. Reason For Visit: COVID-19 Physical Exam Vital Signs: Temp Pulse Resp BP Pulse Ox 98.4 F 96 19 116/69 92 09/07/20 11:45 09/07/20 11:45 09/07/20 11:45 09/07/20 11:45 09/07/20 12:05 Intake & Output 09/06/20 09/07/20 09/08/20 06:59 06:59 06:59 Intake Total 415 1550 Output Total 725 751 Balance -310 799 Weight 128.5 kg General appearance: PRESENT: no acute distress, cooperative Neck exam: ABSENT: JVD Respiratory exam: PRESENT: clear to auscultation khadijah, symmetrical, unlabored. ABSENT: tachypnea, wheezes Cardiovascular exam: PRESENT: irregular rhythm, +S1, +S2, tachycardia GI/Abdominal exam: PRESENT: soft. ABSENT: rebound, rigid, tenderness Neurological exam: PRESENT: alert, awake, oriented to person, oriented to place, oriented to time, oriented to situation Results Laboratory Results: 09/07/20 05:48 09/05/20 05:42 09/07/20 09/07/20 05:48 05:48 WBC 12.2 H RBC 4.64 Hgb 14.3 Hct 41.6 MCV 90 MCH 30.8 MCHC 34.3 RDW 13.3 Plt Count 488 H Ferritin 647.00 H C-Reactive Protein 47.1 H 08/31/20 12:15 Troponin I < 0.012 Impressions: Chest X-Ray 08/31/20 12:28 IMPRESSION: Diffuse bilateral alveolar and interstitial infiltrates Assessment and Plan - Diagnosis (1) Pneumonia due to COVID-19 virus Is this a current diagnosis for this admission?: Yes Plan: Remdesivir day 5 s/p 5 days of azithromycin Ceftriaxone discontinued after 4 days. Decadron day 8 s/p convalescent plasma (2) Acute respiratory failure due to COVID-19 Is this a current diagnosis for this admission?: Yes Plan: Continue Oxymizer at 15 L. (3) Paroxysmal atrial fibrillation with rapid ventricular response Is this a current diagnosis for this admission?: Yes Plan: Likely triggered by current illness. Seems to be new onset of A. fib. Still uncontrolled and achieving good control of this will be difficult until her current illness shows proper improvement. increase toprol to bid As needed IV Lopressor CHADSVASC of 3 --currently on anticoagulation TTE suboptimal shows normal ejection fraction. Valves cannot be adequately assessed due to poor windows. (4) Hypertension Qualifiers: Hypertension type: essential hypertension Qualified Code(s): I10 - Essential (primary) hypertension Is this a current diagnosis for this admission?: Yes (5) Anxiety Is this a current diagnosis for this admission?: Yes (6) Morbid obesity with BMI of 45.0-49.9, adult Is this a current diagnosis for this admission?: Yes - Time Time Spent with patient: Less than 15 minutes Anticipated Discharge Disposition: Home, Self Care Anticipated Discharge Timeframe: unknown
[2020-09-07] MEDS: RIVAROXABAN 10 MG TABLET PO SCH (16:17)
[2020-09-07] MEDS: ATORVASTATIN CALCIUM 40 MG TABLET PO SCH (21:22)
[2020-09-07] MEDS ORDERED: METOPROLOL SUCCINATE 25 MG TAB.SR.24H PO SCH (22:00)
[2020-09-08] MEDS: METOPROLOL TARTRATE PF/INJ 5 MG/5 ML SDV IV PRN (04:55)
[2020-09-08] MEDS: LEVOTHYROXINE SODIUM 0.088 MG TABLET PO SCH (04:59)
[2020-09-08 06:39] LABS: C-REACTIVE PROTEIN 62.9 mg/L (<10.0)
[2020-09-08] MEDS: IPRATROPIUM BROMIDE 0.02% NEB 0.5 MG/2.5 ML AMPUL NEB SCH ×3 (07:53→19:09)
[2020-09-08] MEDS ORDERED: DILTIAZEM HCL/D5W 125 MG/125 ML RTUINJ IV PRN ×2 (07:54→08:37)
[2020-09-08] MEDS ORDERED: DILTIAZEM HCL/D5W 125 MG/125 ML RTUINJ IV ONE (07:57)
[2020-09-08 09:47] LABS: ALKALINE PHOSPHATASE 69 U/L (38-126); ANION GAP 7 (5-19); ASPARTATE AMINO TRANSFERASE 38 U/L (14-36); BILIRUBIN,DIRECT 0.2 mg/dL (0.0-0.4); BILIRUBIN,TOTAL 0.7 mg/dL (0.2-1.3); BLOOD UREA NITROGEN 25 mg/dL (7-20); CALCIUM 8.7 mg/dL (8.4-10.2); CARBON DIOXIDE 27 mmol/L (22-30); CHLORIDE 103 mmol/L (98-107); GLUCOSE 82 mg/dL (75-110); POTASSIUM 4.1 mmol/L (3.6-5.0)
[2020-09-08] MEDS ORDERED: METOPROLOL TARTRATE 50 MG TABLET PO SCH (10:00)
[2020-09-08] MEDS: ZINC SULFATE 220 MG CAPSULE PO SCH (10:24)
[2020-09-08] MEDS: LOSARTAN POTASSIUM 25 MG TABLET PO SCH (10:25)
[2020-09-08] MEDS: DOCUSATE SODIUM 100 MG CAPSULE PO SCH (10:25)
[2020-09-08] MEDS: CHOLECALCIFEROL (D3) 1,000 UNIT (25 MCG) TABLET PO SCH (10:25)
[2020-09-08] MEDS: ASPIRIN 81 MG TABLET, ENT COATED PO SCH (10:25)
[2020-09-08] MEDS: DEXAMETHASONE SOD PHOSPHATE INJ 4 MG/1 ML VIAL IV SCH (10:25)
[2020-09-08] MEDS: GUAIFENESIN 600 MG TABLET.SA PO SCH ×2 (10:25→21:24)
[2020-09-08] MEDS: FAMOTIDINE 20 MG TABLET PO SCH ×2 (10:25→21:24)
[2020-09-08] MEDS: ASCORBIC ACID 500 MG TABLET PO SCH ×2 (10:25→17:04)
[2020-09-08] MEDS: ALPRAZOLAM 0.25 MG TABLET PO PRN ×2 (10:28→21:24)
--- NOTE | 2020-09-08 11:24 | PDOC CONSULTATION ---
Consultation Consult Date: 09/08/20 Attending physician:: ANATOLY URENA Provider Consulted: KRUPA RICHARD Consult reason:: Afib History of Present Illness Admission Date/PCP: 08/31/20 16:16 GERBER KEEN MD History of Present Illness: SU BOND is a 70 year old female, patient of Dr. Lackeys, with history of hypertension, hypothyroidism, PVCs, hyperlipidemia and hypothyroidism who is reconsulted to our service for further evaluation and treatment of atrial f ibrillation. The patient was initially admitted to this facility with COVID-19 pneumonia with subsequent development of rapid atrial fibrillation. Dr. Squires was consulted at the time, please see his notes for further details. In summary, the patient was initially treated with amiodarone IV and eventually was transitioned to p.o. long-acting beta-migel. She is reconsulted because of paroxysmal episodes of rapid ventricular response. Of note, this consult is based on chart review and discussion with hospitalist. Past Medical History Cardiac Medical History: Reports: Hypertension Denies: Myocardial Infarction Pulmonary Medical History: Denies: Asthma, Bronchitis, Chronic Obstructive Pulmonary Disease (COPD), Pneumonia Neurological Medical History: Denies: Seizures GI Medical History: Denies: Hepatitis, Hiatal Hernia Musculoskeltal Medical History: Reports: Arthritis Psychiatric Medical History: Denies: Depression Hematology: Denies: Anemia, Sickle Cell Disease Past Surgical History Past Surgical History: Denies: Amputation, Mastectomy, Pacemaker Social History Smoking Status: Never Smoker Family History Family History: Reviewed & Not Pertinent Parental Family History Reviewed: Yes Children Family History Reviewed: Yes Sibling(s) Family History Reviewed.: Yes Medication/Allergy Home Medications: Losartan Potassium [Cozaar 25 mg Tablet] 25 mg PO DAILY 04/22/19 Celecoxib [Celebrex 200 mg Capsule] 200 mg PO DAILYP PRN 07/12/20 Alprazolam [Xanax 0.25 mg Tablet] 0.25 mg PO Q8HP PRN 08/31/20 Levothyroxine Sodium 88 mcg PO Q6AM 08/31/20 Allergies/Adverse Reactions: No Known Allergies Allergy (Verified 08/31/20 13:12) Physical Exam Vital Signs: Temp Pulse Resp BP Pulse Ox 98.6 F 99 19 113/87 H 95 09/08/20 08:17 09/08/20 11:01 09/08/20 08:17 09/08/20 11:01 09/08/20 08:17 Intake & Output 09/07/20 09/08/20 09/09/20 06:59 06:59 06:59 Intake Total 1550 510 39 Output Total 751 550 Balance 799 -40 39 Weight 128.5 kg 129.3 kg Results Laboratory Results: 09/07/20 05:48 09/08/20 05:18 09/08/20 09/08/20 05:18 05:18 Sodium 136.7 L Potassium 4.1 Chloride 103 Carbon Dioxide 27 Anion Gap 7 BUN 25 H Creatinine 0.82 Est GFR ( Amer) > 60 Glucose 82 Calcium 8.7 Magnesium 2.2 Ferritin 659.00 H Total Bilirubin 0.7 AST 38 H Alkaline Phosphatase 69 C-Reactive Protein 62.9 H Total Protein 6.0 L Albumin 3.0 L 08/31/20 12:15 Troponin I < 0.012 Impressions: Chest X-Ray 08/31/20 12:28 IMPRESSION: Diffuse bilateral alveolar and interstitial infiltrates Current Medication List Generic Name Dose Route Start Last Admin Trade Name Freq PRN Reason Stop Dose Admin Acetaminophen 650 mg 08/31/20 15:37 Acetaminophen 325 Mg Tablet PO 09/30/20 15:36 Q4HP PRN FEVER >101 Al Hydrox/Mg Hydrox/Simethicone 15 ml 08/31/20 15:37 Mag Hydrox/Al Hydrox/Simeth Susp 30 Ml Udcup PO 09/30/20 15:36 Q6HP PRN HEARTBURN Alprazolam 0.25 mg 09/05/20 13:54 09/08/20 10:28 Alprazolam 0.25 Mg Tablet PO 09/12/20 13:53 0.25 mg Q8HP PRN Administration ANXIETY Ascorbic Acid 500 mg 08/31/20 18:00 09/08/20 10:25 Ascorbic Acid 500 Mg Tablet PO 09/30/20 17:59 500 mg BID VALERI Administration Aspirin 81 mg 08/31/20 16:00 09/08/20 10:25 Aspirin 81 Mg Tablet, Ent Coated PO 09/30/20 15:59 81 mg DAILY VALERI Administration Atorvastatin Calcium 40 mg 09/02/20 22:00 09/07/20 21:22 Atorvastatin Calcium 40 Mg Tablet PO 10/02/20 21:59 40 mg QHS VALERI Administration Cholecalciferol 2,000 unit 08/31/20 15:45 09/08/20 10:25 Cholecalciferol (D3) 1,000 Unit (25 Mcg) Tablet PO 09/30/20 15:44 2,000 unit DAILY VALERI Administration Dexamethasone Sodium Phosphate 6 mg 08/31/20 16:00 09/08/20 10:25 Dexamethasone Sod Phosphate Inj 4 Mg/1 Ml Vial IV 09/10/20 09:59 6 mg DAILY VALERI Administration Docusate Sodium 100 mg 09/01/20 10:00 09/08/20 10:25 Docusate Sodium 100 Mg Capsule PO 10/01/20 09:59 100 mg DAILY VALERI Administration Famotidine 20 mg 08/31/20 22:00 09/08/20 10:25 Famotidine 20 Mg Tablet PO 09/30/20 21:59 20 mg Q12 AVLERI Administration Guaifenesin 1,200 mg 09/03/20 22:00 09/08/20 10:25 Guaifenesin 600 Mg Tablet.Sa PO 10/03/20 21:59 1,200 mg Q12 VALERI Administration Guaifenesin/Dextromethorphan 10 ml 09/03/20 11:03 09/03/20 13:17 Guaifenesin/D-Methorphan (200-20 Mg) Syrup 10 Ml PO 10/03/20 11:02 10 ml QIDP PRN Administration COUGH Diltiazem HCl 125 mg in 125 mls @ 0 mls/hr 09/08/20 07:54 09/08/20 11:00 Cardizem Rtu Inj 125 Mg-D5w 125 Ml Premix IV 10/08/20 07:53 5 mls/hr CONTINUOUS PRN 5 mls/hr THIS MED IS NOT "PRN" Titration Protocol Titrate Ipratropium [place] 0.5 mg 09/02/20 09:55 Ipratropium [place] 0.02% Neb 0.5 Mg/2.5 Ml Ampul NEB 10/02/20 09:54 RTQ6HP PRN SHORTNESS OF BREATH Ipratropium [place] 0.5 mg 09/02/20 14:00 09/08/20 07:53 Ipratropium [place] 0.02% Neb 0.5 Mg/2.5 Ml Ampul NEB 10/02/20 13:59 0.5 mg [id number] VALERI Administration Levalbuterol HCl 0.63 mg 09/02/20 09:55 Levalbuterol Hcl Neb 0.63 Mg/3 Ml Ampul NEB 10/02/20 09:54 RTQ6HP PRN SHORTNESS OF BREATH Levothyroxine Sodium 0.088 mg 09/01/20 06:00 09/08/20 04:59 Levothyroxine Sodium 0.088 Mg Tablet PO 10/01/20 05:59 0.088 mg Q6AM VALERI Administration Losartan Potassium 25 mg 08/31/20 17:30 09/08/20 10:25 Losartan Potassium 25 Mg Tablet PO 09/30/20 17:29 25 mg DAILY VALERI Administration Magnesium Hydroxide 30 ml 08/31/20 15:37 Magnesium Hydroxide Susp 30 Ml Udcup PO 09/30/20 15:36 DAILYP PRN FOR CONSTIPATION Metoprolol Tartrate 5 mg 09/06/20 12:38 09/08/20 04:55 Metoprolol Tartrate Pf/Inj 5 Mg/5 Ml Sdv IV 10/02/20 14:15 5 mg Q6HP PRN Administration Give For Hr > [130] Metoprolol Tartrate 50 mg 09/08/20 10:00 09/08/20 10:25 Metoprolol Tartrate 50 Mg Tablet PO 10/08/20 09:59 50 mg Q12 VALERI Administration Ondansetron HCl 4 mg 08/31/20 15:37 Ondansetron Hcl Inj/Pf 4 Mg/2 Ml Sdv IV 09/30/20 15:36 Q4HP PRN FOR NAUSEA/VOMITING Polyethylene Glycol 17 gm 09/03/20 11:03 Polyethylene Glycol 3350 Powder 17 Gm/1 Packet PO 10/03/20 11:02 DAILYP PRN FOR CONSTIPATION Promethazine HCl 6.25 mg 08/31/20 15:37 Promethazine Hcl Inj 25 Mg/1 Ml Vial IV 09/30/20 15:36 Q4HP PRN FOR NAUSEA/VOMITING Rivaroxaban 20 mg 09/07/20 17:00 09/07/20 16:17 Rivaroxaban 10 Mg Tablet PO 10/07/20 16:59 20 mg WSUPPER VALERI Administration Sodium Chloride 2.5 ml 08/31/20 15:45 09/08/20 05:00 Normal Saline Flush 2.5 Ml Disp.Syrin IV 09/30/20 15:44 2.5 ml Q8 VALERI Administration Zinc Sulfate 220 mg 08/31/20 15:45 09/08/20 10:24 Zinc Sulfate 220 Mg Capsule PO 09/30/20 15:44 220 mg DAILY VALERI Administration Discontinued Medications Generic Name Dose Route Start Last Admin Trade Name Freq PRN Reason Stop Dose Admin Albuterol/Ipratropium 3 ml 08/31/20 20:00 09/02/20 07:58 Ipratropium/Albuterol 0.5-2.5 Mg/3 Ml Ampul NEB 09/30/20 19:59 3 ml [id number] VALERI Administration Albuterol/Ipratropium 3 ml 08/31/20 15:37 Ipratropium/Albuterol 0.5-2.5 Mg/3 Ml Ampul NEB 09/30/20 15:36 RTQ6HP PRN SHORTNESS OF BREATH Azithromycin 250 mg 09/01/20 10:00 09/06/20 09:57 Azithromycin 250 Mg Tablet PO 09/08/20 09:59 250 mg DAILY VALERI Administration Azithromycin 500 mg 08/31/20 15:37 08/31/20 17:09 Azithromycin 250 Mg Tablet PO 08/31/20 15:38 500 mg NOW ONE Administration Digoxin 0.125 mg 09/02/20 10:00 09/02/20 09:35 Digoxin Inj 0.5 Mg/2 Ml Ampule IV 09/02/20 10:01 0.125 mg NOW ONE Administration Digoxin Confirm 09/02/20 09:16 09/02/20 09:20 Digoxin Inj 0.5 Mg/2 Ml Ampule Administered 09/02/20 09:17 0.5 mg Dose Administration 0.5 mg .ROUTE .STK-MED ONE Digoxin Confirm 09/02/20 09:31 09/02/20 09:40 Digoxin Inj 0.5 Mg/2 Ml Ampule Administered 09/02/20 09:32 Not Given Dose 0.5 mg .ROUTE .STK-MED ONE Diltiazem HCl 15 mg 09/02/20 06:45 09/02/20 06:48 Diltiazem Hcl Inj 25 Mg/5 Ml Vial IV 09/02/20 06:46 15 mg NOW ONE Administration Diltiazem HCl Confirm 09/02/20 06:41 09/02/20 06:48 Diltiazem Hcl Inj 25 Mg/5 Ml Vial Administered 09/02/20 06:42 Not Given Dose 25 mg .ROUTE .STK-MED ONE Diltiazem HCl Confirm 09/02/20 09:08 09/02/20 09:10 Diltiazem Hcl Inj 25 Mg/5 Ml Vial Administered 09/02/20 09:09 25 mg Dose Administration 25 mg .ROUTE .STK-MED ONE Enoxaparin Sodium 120 mg 08/31/20 22:00 09/07/20 09:52 Enoxaparin Sodium Inj 120 Mg/0.8 Ml Disp.Syrin SUBCUT 09/30/20 21:59 120 mg Q12 VALERI Administration Ceftriaxone Sodium/Dextrose 1 gm in 50 mls @ 100 mls/hr 09/01/20 11:00 09/05/20 14:36 Rocephin Rtu 1 Gm/D5w 50 Ml Premix IV 09/08/20 10:59 Infused DAILY VALERI Infusion Diltiazem HCl 125 mg in 125 mls @ 0 mls/hr 09/02/20 07:53 09/02/20 08:23 Cardizem Rtu Inj 125 Mg-D5w 125 Ml Premix IV 10/02/20 07:52 5 mls/hr CONTINUOUS PRN 5 mls/hr THIS MED IS NOT "PRN" Administration Protocol Titrate Amiodarone HCl 150 mg/ 100 mls @ 600 mls/hr 09/02/20 12:30 09/02/20 12:25 Dextrose IV 09/02/20 12:39 600 mls/hr NOW ONE Administration Protocol Amiodarone HCl 900 mg/ 500 mls @ 0 mls/hr 09/02/20 12:30 09/03/20 13:06 Dextrose IV 09/05/20 12:29 Infused CONTINUOUS PRN Titration THIS MED IS NOT "PRN" Protocol Per Protocol Remdesivir 200 mg/ Sodium 250 mls @ 250 mls/hr 09/03/20 16:00 09/03/20 21:37 Chloride IV 09/03/20 16:59 Infused NOW ONE Infusion Remdesivir 100 mg/ Sodium 250 mls @ 250 mls/hr 09/04/20 10:00 09/07/20 14:20 Chloride IV 09/07/20 10:59 Infused DAILY VALERI Infusion Sodium Chloride 1,000 mls @ 0 mls/hr 09/06/20 12:37 09/06/20 17:52 Nacl 0.9% 1000 Ml Iv Soln IV 09/06/20 12:38 Infused BOLUS ONE Infusion Wide Open Diltiazem HCl Confirm 09/08/20 07:57 09/08/20 08:25 Cardizem Rtu Inj 125 Mg-D5w 125 Ml Premix Administered 09/08/20 07:58 Not Given Dose 125 mg in 125 mls @ ud IV .STK-MED ONE Labetalol HCl 10 mg 08/31/20 15:43 Labetalol Hcl Inj 20 Mg/4 Ml Disp.Syrin IV 09/30/20 15:42 Q6HP PRN Give For Sbp > [150] Levalbuterol HCl 0.63 mg 09/02/20 14:00 09/05/20 08:50 Levalbuterol Hcl Neb 0.63 Mg/3 Ml Ampul NEB 10/02/20 13:59 0.63 mg [id number] VALERI Administration Metoprolol Succinate 25 mg 09/03/20 10:00 09/05/20 10:30 Metoprolol Succinate 25 Mg Tab.Sr.24h PO 10/03/20 09:59 25 mg DAILY VALERI Administration Metoprolol Succinate 25 mg 09/05/20 15:00 09/05/20 14:35 Metoprolol Succinate 25 Mg Tab.Sr.24h PO 09/05/20 15:01 25 mg NOW ONE Administration Metoprolol Succinate 50 mg 09/06/20 10:00 09/07/20 09:54 Metoprolol Succinate 50 Mg Tab.Sr.24h PO 10/06/20 09:59 50 mg DAILY VALERI Administration Metoprolol Succinate 25 mg 09/07/20 22:00 09/07/20 21:22 Metoprolol Succinate 25 Mg Tab.Sr.24h PO 10/07/20 21:59 25 mg QHS VALERI Administration Metoprolol Tartrate 2.5 mg 09/02/20 14:16 09/06/20 08:53 Metoprolol Tartrate Pf/Inj 5 Mg/5 Ml Sdv IV 10/02/20 14:15 2.5 mg Q6HP PRN Administration Give For Hr > [130] Metoprolol Tartrate Confirm 09/02/20 14:21 09/02/20 14:35 Metoprolol Tartrate Pf/Inj 5 Mg/5 Ml Sdv Administered 09/02/20 14:22 Not Given Dose 5 mg IV .STK-MED ONE Metoprolol Tartrate 5 mg 09/06/20 12:37 09/06/20 14:21 Metoprolol Tartrate Pf/Inj 5 Mg/5 Ml Sdv IV 09/06/20 12:38 Not Given NOW ONE Metoprolol Tartrate Confirm 09/06/20 12:39 09/06/20 12:45 Metoprolol Tartrate Pf/Inj 5 Mg/5 Ml Sdv Administered 09/06/20 12:40 5 mg Dose Administration 5 mg IV .STK-MED ONE Oxycodone/Acetaminophen 1 tab 08/31/20 15:37 Oxycodone-Acetaminophen 5-325 Mg Tablet PO 09/07/20 15:36 Q6HP PRN FOR PAIN SCALE 3-5 Temazepam 7.5 mg 08/31/20 15:37 Temazepam 7.5 Mg Capsule PO 09/07/20 15:36 HSP PRN SLEEP OR INSOMNIA Temazepam 15 mg 09/03/20 11:04 Temazepam 7.5 Mg Capsule PO 09/07/20 15:36 HSP PRN SLEEP OR INSOMNIA 09/07/20 05:48 09/08/20 05:18 MCV 90 fl (80-97) 09/07/20 05:48 MCH 30.8 pg (27.0-33.4) 09/07/20 05:48 MCHC 34.3 g/dL (32.0-36.0) 09/07/20 05:48 RDW 13.3 % (11.5-14.0) 09/07/20 05:48 Seg Neutrophils % 87.3 % (42-78) H 09/05/20 05:42 Carbonic Acid 1.10 mmol/L (1.05-1.35) 08/31/20 14:25 HCO3/H2CO3 Ratio 20:1 08/31/20 14:25 ABG pH 7.40 (7.35-7.45) 08/31/20 14:25 ABG pCO2 36.5 mmHg (35-45) 08/31/20 14:25 ABG pO2 137.4 mmHg (80-100) H 08/31/20 14:25 ABG HCO3 22.1 mmol/L (20-24) 08/31/20 14:25 ABG O2 Saturation 98.8 % (94-98) H 08/31/20 14:25 ABG Base Excess -2.1 mmol/L 08/31/20 14:25 FiO2 100% 08/31/20 14:25 Chloride 103 mmol/L (98-107) 09/08/20 05:18 Carbon Dioxide 27 mmol/L (22-30) 09/08/20 05:18 Anion Gap 7 (5-19) 09/08/20 05:18 Est GFR ( Amer) > 60 (>60) 09/08/20 05:18 Glucose 82 mg/dL (75-110) 09/08/20 05:18 Calcium 8.7 mg/dL (8.4-10.2) 09/08/20 05:18 Magnesium 2.2 mg/dL (1.6-2.3) 09/08/20 05:18 Ferritin 659.00 ng/mL (11.1-264.0) H 09/08/20 05:18 Total Bilirubin 0.7 mg/dL (0.2-1.3) 09/08/20 05:18 AST 38 U/L (14-36) H 09/08/20 05:18 Alkaline Phosphatase 69 U/L (38-126) 09/08/20 05:18 C-Reactive Protein 62.9 mg/L (<10.0) H 09/08/20 05:18 Total Protein 6.0 g/dL (6.3-8.2) L 09/08/20 05:18 Albumin 3.0 g/dL (3.5-5.0) L 09/08/20 05:18 Triglycerides 146 mg/dL (<150) 09/02/20 05:45 Cholesterol 160.02 mg/dL (0-200) 09/02/20 05:45 LDL Cholesterol Direct 104 mg/dL (<100) H 09/02/20 05:45 VLDL Cholesterol 29.0 mg/dL (10-31) 09/02/20 05:45 HDL Cholesterol 39 mg/dL (>40) L 09/02/20 05:45 TSH 3.90 uIU/mL (0.47-4.68) 09/02/20 05:45 Urine Color MEGHAN 09/05/20 05:40 Urine Appearance CLOUDY 09/05/20 05:40 Urine pH 5.0 (5.0-9.0) 09/05/20 05:40 Ur Specific [place] 1.036 09/05/20 05:40 Urine Protein 30 mg/dL (NEGATIVE) H 09/05/20 05:40 Urine Glucose (UA) NEGATIVE mg/dL (NEGATIVE) 09/05/20 05:40 Urine Ketones NEGATIVE mg/dL (NEGATIVE) 09/05/20 05:40 Urine Blood NEGATIVE (NEGATIVE) 09/05/20 05:40 Urine Nitrite NEGATIVE (NEGATIVE) 09/05/20 05:40 Ur Leukocyte Esterase NEGATIVE (NEGATIVE) 09/05/20 05:40 Urine WBC (Auto) 0 /HPF 09/05/20 05:40 Urine RBC (Auto) 1 /HPF 09/05/20 05:40 Blood Type B POSITIVE 08/31/20 17:31 Antibody Screen NEGATIVE 08/31/20 17:31 08/31/20 12:15 Troponin I < 0.012 Assessment & Plan - Diagnosis (1) Paroxysmal atrial fibrillation with rapid ventricular response Is this a current diagnosis for this admission?: Yes Plan: Once again, this is a virtual consult as the patient is isolated in the COVID-19 unit. I agree with initial recommendations by Dr. Squires. Her atrial fibrillation is secondary to her infectious status with COVID-19 pneumonia. Her heart rate this morning appears to be improved however it is expected to be uncontrolled at times as it is driven by her pneumonia and overall systemic inflammatory status. I suspect that her atrial fibrillation will improve as her respiratory/pneumonia status improves. Recommendations: -Continue with current medical management for now to include systemic anticoagulation. -May switch metoprolol tartrate to 50 mg p.o. 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 -May add digoxin as recommended by Dr. Squires in his prior notes. -Cardiology does not have further recommendations therefore we will sign off the case for now.
--- NOTE | 2020-09-08 13:01 | PDOC PROGRESS REPORT ---
Subjective Date:: 09/08/20 Subjective:: Went into A. fib with RVR again overnight. Heart rate went into the 170s this m orning. Received a Lopressor push and started on a diltiazem drip. During my encounter patient denies feeling short of breath. She states she feels very fatigued still. Discussed that he has some physical therapy. Denies any chest pain. Had BM yesterday. Reason For Visit: COVID-19 Physical Exam Vital Signs: Temp Pulse Resp BP Pulse Ox 98.6 F 99 19 100/75 95 09/08/20 08:17 09/08/20 11:15 09/08/20 08:17 09/08/20 11:15 09/08/20 08:17 Intake & Output 09/07/20 09/08/20 09/09/20 06:59 06:59 06:59 Intake Total 1550 510 39 Output Total 751 550 Balance 799 -40 39 Weight 128.5 kg 129.3 kg General appearance: PRESENT: no acute distress, cooperative Head exam: PRESENT: normocephalic Eye exam: PRESENT: EOMI Neck exam: ABSENT: JVD Respiratory exam: PRESENT: clear to auscultation khadijah, symmetrical, unlabored. ABSENT: accessory muscle use, tachypnea, wheezes Cardiovascular exam: PRESENT: irregular rhythm, +S1, +S2. ABSENT: tachycardia GI/Abdominal exam: PRESENT: soft. ABSENT: rebound, rigid, tenderness Results Laboratory Results: 09/07/20 05:48 09/08/20 05:18 09/08/20 09/08/20 05:18 05:18 Sodium 136.7 L Potassium 4.1 Chloride 103 Carbon Dioxide 27 Anion Gap 7 BUN 25 H Creatinine 0.82 Est GFR ( Amer) > 60 Glucose 82 Calcium 8.7 Magnesium 2.2 Ferritin 659.00 H Total Bilirubin 0.7 AST 38 H Alkaline Phosphatase 69 C-Reactive Protein 62.9 H Total Protein 6.0 L Albumin 3.0 L 08/31/20 12:15 Troponin I < 0.012 Impressions: Chest X-Ray 08/31/20 12:28 IMPRESSION: Diffuse bilateral alveolar and interstitial infiltrates Assessment and Plan - Diagnosis (1) Pneumonia due to COVID-19 virus Is this a current diagnosis for this admission?: Yes Plan: s/p 5 days of azithromycin and remdesivir Ceftriaxone discontinued after 4 days. Decadron day 9 s/p convalescent plasma Updated her roommate and emergency contact Sarah about her condition. She is patient's only contact as patient has no other immediate relatives. (2) Acute respiratory failure due to COVID-19 Is this a current diagnosis for this admission?: Yes Plan: Apparently, patient had to be transitioned to CPAP due to problems with her Oxymizer tubing overnight. She was seen on the CPAP during my encounter but will try to transition her back to Oxymizer withAppropriate tube. I have been maintaining appropriate SPO2 on Oxymizer at 15 L (3) Paroxysmal atrial fibrillation with rapid ventricular response Is this a current diagnosis for this admission?: Yes Plan: Likely triggered by current illness. Seems to be new onset of A. fib. Still uncontrolled and achieving good control of this will be difficult until her current respiratory illness shows proper improvement. CHADSVASC of 3 --currently on anticoagulation TTE suboptimal shows normal ejection fraction. Valves cannot be adequately assessed due to poor windows. Initiated on diltiazem drip. Monitor blood pressure closely. Beta-migel changed to Lopressor 50 mg every 6 hours as recommended by cardiology. Cardiology was reconsulted-refer to note (4) Hypertension Qualifiers: Hypertension type: essential hypertension Qualified Code(s): I10 - Essential (primary) hypertension Is this a current diagnosis for this admission?: Yes Plan: Normotensive continue losartan (5) Anxiety Is this a current diagnosis for this admission?: Yes Plan: On her home regimen of Xanax as needed (6) Morbid obesity with BMI of 45.0-49.9, adult Is this a current diagnosis for this admission?: Yes - Time Time Spent with patient: 15-24 minutes Anticipated Discharge Disposition: Home, Self Care Anticipated Discharge Timeframe: 1 week
[2020-09-08] MEDS ORDERED: NORMAL SALINE 1000 ML 1,000 ML IV ONE (14:00)
[2020-09-08] MEDS: RIVAROXABAN 10 MG TABLET PO SCH (16:12)
[2020-09-08] MEDS: METOPROLOL TARTRATE 50 MG TABLET PO SCH ×2 (17:04→23:40)
[2020-09-08] MEDS ORDERED: OXYCODONE-ACETAMINOPHEN 5-325 MG TABLET PO PRN (18:00)
--- NOTE | 2020-09-08 18:56 | EKG REPORT ---
SEVERITY:- ABNORMAL ECG - ATRIAL FIBRILLATION, V-RATE 62-126 VENTRICULAR PREMATURE COMPLEX LVH BY VOLTAGE : Confirmed by: Olaf Squires MD 08-Sep-2020 18:55:42
[2020-09-08] MEDS: ATORVASTATIN CALCIUM 40 MG TABLET PO SCH (21:24)
[2020-09-09] MEDS: METOPROLOL TARTRATE 50 MG TABLET PO SCH ×3 (05:07→17:24)
[2020-09-09] MEDS: LEVOTHYROXINE SODIUM 0.088 MG TABLET PO SCH (05:07)
[2020-09-09 06:58] LABS: C-REACTIVE PROTEIN 139.7 mg/L (<10.0)
[2020-09-09] MEDS: IPRATROPIUM BROMIDE 0.02% NEB 0.5 MG/2.5 ML AMPUL NEB SCH ×3 (07:46→20:20)
[2020-09-09] MEDS: ASCORBIC ACID 500 MG TABLET PO SCH ×2 (09:58→17:24)
[2020-09-09] MEDS: CHOLECALCIFEROL (D3) 1,000 UNIT (25 MCG) TABLET PO SCH (09:58)
[2020-09-09] MEDS: ALPRAZOLAM 0.25 MG TABLET PO PRN ×2 (09:59→22:05)
[2020-09-09] MEDS: DEXAMETHASONE SOD PHOSPHATE INJ 4 MG/1 ML VIAL IV SCH (09:59)
[2020-09-09] MEDS: FAMOTIDINE 20 MG TABLET PO SCH ×2 (09:59→22:05)
[2020-09-09] MEDS: LOSARTAN POTASSIUM 25 MG TABLET PO SCH (09:59)
[2020-09-09] MEDS: GUAIFENESIN 600 MG TABLET.SA PO SCH ×2 (09:59→22:05)
[2020-09-09] MEDS: ZINC SULFATE 220 MG CAPSULE PO SCH (09:59)
[2020-09-09] MEDS: ASPIRIN 81 MG TABLET, ENT COATED PO SCH (09:59)
[2020-09-09] MEDS: DOCUSATE SODIUM 100 MG CAPSULE PO SCH ×2 (09:59→10:09)
[2020-09-09] MEDS: DEXTROSE 5%-NORMAL SALINE 1,000 ML IV PRN (11:00)
--- NOTE | 2020-09-09 12:40 | PDOC PROGRESS REPORT ---
Subjective Date:: 09/09/20 Subjective:: Patient remains fatigued. Possibly some shortness of breath today. She was on CPAP. Notably she did desaturate when she is on the Oxymizer. Has been weaning her PEEP. She is on a CPAP. We will try to get her high flow nasal cannula today if possible to get her off the CPAP and to allow her to eat. Reason For Visit: COVID-19 Physical Exam Vital Signs: Temp Pulse Resp BP Pulse Ox 99.5 F 97 26 H 103/65 93 09/09/20 11:41 09/09/20 11:41 09/09/20 11:41 09/09/20 11:41 09/09/20 11:41 Intake & Output 09/08/20 09/09/20 09/10/20 06:59 06:59 06:59 Intake Total 510 1053 Output Total 550 1350 Balance -40 -297 Weight 129.3 kg 132.5 kg General appearance: PRESENT: no acute distress, cooperative, morbidly obese. ABSENT: disheveled Neck exam: ABSENT: JVD Respiratory exam: PRESENT: clear to auscultation khadijah, symmetrical, unlabored. ABSENT: tachypnea, wheezes Cardiovascular exam: PRESENT: irregular rhythm, +S1, +S2. ABSENT: tachycardia GI/Abdominal exam: PRESENT: soft. ABSENT: rebound, rigid, tenderness Neurological exam: ABSENT: alert - She was sleeping but awakens very easily when called upon. Psychiatric exam: ABSENT: agitated, anxious Focused psych exam: ABSENT: internal stimuli, pressured speech Skin exam: ABSENT: jaundice Results Laboratory Results: 09/07/20 05:48 09/08/20 05:18 09/09/20 05:07 Ferritin 862.00 H C-Reactive Protein 139.7 H 08/31/20 12:15 Troponin I < 0.012 Impressions: Chest X-Ray 08/31/20 12:28 IMPRESSION: Diffuse bilateral alveolar and interstitial infiltrates Assessment and Plan - Diagnosis (1) Pneumonia due to COVID-19 virus Is this a current diagnosis for this admission?: Yes Plan: s/p 5 days of azithromycin and remdesivir and 10 days of dexamethasone Ceftriaxone discontinued after 4 days. s/p convalescent plasma Mostly dealing with the post-pneumonia sequelae and lung damage at this point PT/OT (2) Acute respiratory failure due to COVID-19 Is this a current diagnosis for this admission?: Yes Plan: Oxymizer was not sufficient to maintain her sats above 90%. Currently on CPAP 15/90%. We will try to get her on HFNC if available (3) Paroxysmal atrial fibrillation with rapid ventricular response Is this a current diagnosis for this admission?: Yes Plan: Likely triggered by current illness. Seems to be new onset of A. fib. Still uncontrolled and achieving good control of this will be difficult until her current respiratory illness shows proper improvement. CHADSVASC of 3 --currently on AC Lopressor 50 mg every 6 hours TTE suboptimal shows normal ejection fraction. Valves cannot be adequately assessed due to poor windows. Off the diltiazem drip. Monitor blood pressure closely. (4) Hypertension Qualifiers: Hypertension type: essential hypertension Qualified Code(s): I10 - Essential (primary) hypertension Is this a current diagnosis for this admission?: Yes Plan: Blood pressures are soft so I will stop losartan especially as patient is on Lopressor every 6 hours for heart rate. (5) Anxiety Is this a current diagnosis for this admission?: Yes Plan: On her home regimen of Xanax as needed (6) Morbid obesity with BMI of 45.0-49.9, adult Is this a current diagnosis for this admission?: Yes - Time Time Spent with patient: 15-24 minutes Anticipated Discharge Disposition: Home with Home Health Anticipated Discharge Timeframe: >1wk
[2020-09-09] MEDS: METHYLPREDNISOLONE INJ 40 MG/1 ML SDV IV SCH ×2 (14:03→22:06)
[2020-09-09] MEDS: DIGOXIN 0.25 MG TABLET PO SCH ×2 (16:24→22:05)
[2020-09-09] MEDS: RIVAROXABAN 10 MG TABLET PO SCH (16:25)
[2020-09-09] MEDS: METOPROLOL TARTRATE PF/INJ 5 MG/5 ML SDV IV PRN (17:36)
[2020-09-09] MEDS: ATORVASTATIN CALCIUM 40 MG TABLET PO SCH (22:05)
[2020-09-10] MEDS: METOPROLOL TARTRATE 50 MG TABLET PO SCH ×5 (00:06→23:02)
[2020-09-10] MEDS: DIGOXIN 0.25 MG TABLET PO SCH (03:32)
[2020-09-10] MEDS: DEXTROSE 5%-NORMAL SALINE 1,000 ML IV PRN (03:55)
[2020-09-10 04:28] LABS: ARTERIAL BLOOD BASE EXCESS -2.5 mmol/L; ARTERIAL BLOOD FIO2 100%; ARTERIAL BLOOD H2CO3 1.15 mmol/L (1.05-1.35); ARTERIAL BLOOD HCO3 22.2 mmol/L (20-24); ARTERIAL BLOOD O2 SATURATION 86.2 % (94-98); ARTERIAL BLOOD PCO2 38.1 mmHg (35-45); ARTERIAL BLOOD PH 7.38 (7.35-7.45); ARTERIAL BLOOD PO2 51.6 mmHg (80-100); ARTERIAL BLOOD TOTAL CO2 23.4 mmol/L (21-25)
[2020-09-10] MEDS: LEVALBUTEROL HCL NEB 0.63 MG/3 ML AMPUL NEB PRN ×2 (04:50→08:22)
[2020-09-10] MEDS: LEVOTHYROXINE SODIUM 0.088 MG TABLET PO SCH (05:30)
[2020-09-10] MEDS: METHYLPREDNISOLONE INJ 40 MG/1 ML SDV IV SCH ×3 (05:30→22:55)
[2020-09-10 06:18] LABS: C-REACTIVE PROTEIN 64.2 mg/L (<10.0)
[2020-09-10] MEDS: IPRATROPIUM BROMIDE 0.02% NEB 0.5 MG/2.5 ML AMPUL NEB SCH ×3 (08:22→21:00)
[2020-09-10 09:50] LABS: ARTERIAL BLOOD BASE EXCESS 0 mmol/L; ARTERIAL BLOOD H2CO3 1.13 mmol/L (1.05-1.35); ARTERIAL BLOOD O2 SATURATION 91.3 % (94-98); ARTERIAL BLOOD PCO2 37.4 mmHg (35-45); ARTERIAL BLOOD PH 7.43 (7.35-7.45); ARTERIAL BLOOD PO2 58.9 mmHg (80-100); ARTERIAL BLOOD TOTAL CO2 25.2 mmol/L (21-25)
[2020-09-10 09:51] LABS: ARTERIAL BLOOD FIO2 100%
[2020-09-10] MEDS: DOCUSATE SODIUM 100 MG CAPSULE PO SCH (10:18)
[2020-09-10] MEDS: CHOLECALCIFEROL (D3) 1,000 UNIT (25 MCG) TABLET PO SCH (10:18)
[2020-09-10] MEDS: ASPIRIN 81 MG TABLET, ENT COATED PO SCH (10:18)
[2020-09-10] MEDS: GUAIFENESIN 600 MG TABLET.SA PO SCH ×2 (10:18→22:54)
[2020-09-10] MEDS: ZINC SULFATE 220 MG CAPSULE PO SCH (10:18)
[2020-09-10] MEDS: FAMOTIDINE 20 MG TABLET PO SCH ×2 (10:18→22:55)
[2020-09-10] MEDS: ASCORBIC ACID 500 MG TABLET PO SCH ×2 (10:19→17:20)
--- NOTE | 2020-09-10 16:36 | PDOC PROGRESS REPORT ---
Subjective Date:: 09/10/20 Subjective:: Overnight, CPAP was not sufficient to keep patient's oxygen saturation above 88% . Patient was converted to a BiPAP during the night. During my encounter, she had a nonrebreather as well as high flow nasal cannula in place. She interestingly looked quite comfortable. She states she feels better even though she is more hypoxic. Denies any chest pain. Did work with physical therapy yesterday. Reason For Visit: COVID-19 Physical Exam Vital Signs: Temp Pulse Resp BP Pulse Ox 98.0 F 86 24 H 126/75 H 89 L 09/10/20 08:29 09/10/20 14:00 09/10/20 14:00 09/10/20 07:52 09/10/20 14:00 Intake & Output 09/09/20 09/10/20 09/11/20 06:59 06:59 06:59 Intake Total 1053 1500 Output Total 1350 750 Balance -297 750 Weight 132.5 kg 132.3 kg General appearance: PRESENT: no acute distress, cooperative, morbidly obese Neck exam: ABSENT: JVD Respiratory exam: PRESENT: clear to auscultation khadijah, symmetrical, unlabored. ABSENT: accessory muscle use, retraction, tachypnea, wheezes Cardiovascular exam: PRESENT: irregular rhythm, +S1, +S2. ABSENT: tachycardia GI/Abdominal exam: PRESENT: soft. ABSENT: rebound, rigid, tenderness Extremities exam: ABSENT: calf tenderness Neurological exam: PRESENT: alert, awake, oriented to person, oriented to place, oriented to time, oriented to situation Psychiatric exam: ABSENT: agitated, anxious Focused psych exam: ABSENT: pressured speech Results Laboratory Results: 09/07/20 05:48 09/08/20 05:18 09/10/20 09/10/20 09/10/20 04:00 05:30 06:25 Carbonic Acid 1.15 Cancelled HCO3/H2CO3 Ratio 19:1 Cancelled ABG pH 7.38 Cancelled ABG pCO2 38.1 Cancelled ABG pO2 51.6 L Cancelled ABG HCO3 22.2 Cancelled ABG O2 Saturation 86.2 L Cancelled ABG Base Excess -2.5 Cancelled FiO2 100% Cancelled Ferritin 883.00 H C-Reactive Protein 64.2 H 09/10/20 09:35 Carbonic Acid 1.13 HCO3/H2CO3 Ratio 21:1 ABG pH 7.43 ABG pCO2 37.4 ABG pO2 58.9 L ABG HCO3 24.0 ABG O2 Saturation 91.3 L ABG Base Excess 0 FiO2 100% Ferritin C-Reactive Protein 08/31/20 12:15 Troponin I < 0.012 Impressions: Chest X-Ray 08/31/20 12:28 IMPRESSION: Diffuse bilateral alveolar and interstitial infiltrates Assessment and Plan - Diagnosis (1) Pneumonia due to COVID-19 virus Is this a current diagnosis for this admission?: Yes Plan: s/p 5 days of azithromycin and remdesivir and 10 days of dexamethasone Ceftriaxone discontinued after 4 days. s/p convalescent plasma Mostly dealing with the post-pneumonia sequelae and lung damage at this point PT/OT (2) Acute respiratory failure due to COVID-19 Is this a current diagnosis for this admission?: Yes Plan: Worsened overnight. Patient was on HFNC 100% plus partial nonrebreather this AM on encounter and still currently. She actually appear very comfortable and talking fluently. I will switch her to BiPAP an hour after she finishes dinner. If Bipap is not sufficient then will need to upgrade LOC Patient has been mostly about net even in terms of her fluid balance on I's and O's Initially showed some improvement but unfortunately it seems patient's hypoxia is worsening from her Covid sequelae. She is not spiking any fevers. We will check a chest x-ray today. (3) Paroxysmal atrial fibrillation with rapid ventricular response Is this a current diagnosis for this admission?: Yes Plan: Likely being driven by current illness. Seems to be new onset of A. fib. CHADSVASC of 3 --currently on Xarelto TTE suboptimal shows normal ejection fraction. Valves cannot be adequately assessed due to poor windows. Lopressor 50 mg every 6 hours Received oral digoxin load 0.25 mg x 3. Continue 0.125 mg daily. HR seems better controlled today. (4) Hypertension Qualifiers: Hypertension type: essential hypertension Qualified Code(s): I10 - Ess ential (primary) hypertension Is this a current diagnosis for this admission?: Yes Plan: Losartan has been stopped as patient is on Lopressor every 6 hours for heart rate. (5) Anxiety Is this a current diagnosis for this admission?: Yes Plan: On her home regimen of Xanax as needed (6) Morbid obesity with BMI of 45.0-49.9, adult Is this a current diagnosis for this admission?: Yes - Time Time Spent with patient: 15-24 minutes Anticipated Discharge Disposition: Home, Self Care Anticipated Discharge Timeframe: Unknown
[2020-09-10] MEDS: RIVAROXABAN 10 MG TABLET PO SCH (17:20)
--- NOTE | 2020-09-10 17:51 | RADIOLOGY REPORT (SQ) ---
EXAM DESCRIPTION: CHEST SINGLE VIEW IMAGES COMPLETED DATE/TIME: 09/10/2020 5:32 pm REASON FOR STUDY: worsening hypoxia COMPARISON: 08/31/2020 EXAM PARAMETERS: NUMBER OF VIEWS: One view. TECHNIQUE: Single frontal radiographic view of the chest acquired. RADIATION DOSE: NA LIMITATIONS: None. FINDINGS: LUNGS AND PLEURA: Interval progression of the alveolar and interstitial infiltrate since the prior examination, particularly in the left mid-lower lung. Small bilateral pleural effusions. No pneumothorax. MEDIASTINUM AND HILAR STRUCTURES: Stable. HEART AND VASCULAR STRUCTURES: Stable. BONES: No acute findings. HARDWARE: None in the chest. OTHER: No other significant finding. IMPRESSION: 1. Interval progression of bilateral alveolar and interstitial infiltrates since the pr ior study dated 08/31/2020. The patient has a history of known COVID-19 disease. TECHNICAL DOCUMENTATION: JOB ID: [id number] 2010 [email or web address]- All Rights Reserved Reading location - IP/workstation name: [email or web address]
[2020-09-10] MEDS ORDERED: FUROSEMIDE INJ/PF 20 MG/2 ML SDV IV ONE (18:40)
[2020-09-10] MEDS: ATORVASTATIN CALCIUM 40 MG TABLET PO SCH (22:55)
[2020-09-11] MEDS: LEVALBUTEROL HCL NEB 0.63 MG/3 ML AMPUL NEB PRN ×2 (03:25→08:13)
[2020-09-11] MEDS ORDERED: MORPHINE SULFATE 10 MG/ML INJ ONE (03:41)
[2020-09-11 03:57] LABS: ARTERIAL BLOOD BASE EXCESS -0.3 mmol/L; ARTERIAL BLOOD HCO3 23.6 mmol/L (20-24); ARTERIAL BLOOD O2 SATURATION 88.1 % (94-98); ARTERIAL BLOOD PCO2 36.5 mmHg (35-45); ARTERIAL BLOOD PH 7.43 (7.35-7.45); ARTERIAL BLOOD PO2 52.3 mmHg (80-100); ARTERIAL BLOOD TOTAL CO2 24.7 mmol/L (21-25)
[2020-09-11 03:58] LABS: ARTERIAL BLOOD FIO2 100%
[2020-09-11] MEDS ORDERED: MORPHINE SULFATE 10 MG/ML INJ IV ONE (04:00)
[2020-09-11] MEDS ORDERED: FAMOTIDINE INJ/PF 20 MG/2 ML SDV IV ONE (04:45)
[2020-09-11] MEDS: METHYLPREDNISOLONE INJ 40 MG/1 ML SDV IV SCH ×3 (05:17→22:53)
[2020-09-11] MEDS: METOPROLOL TARTRATE 50 MG TABLET PO SCH ×4 (05:18→23:06)
[2020-09-11] MEDS: LEVOTHYROXINE SODIUM 0.088 MG TABLET PO SCH (05:18)
[2020-09-11 06:32] LABS: C-REACTIVE PROTEIN 45.6 mg/L (<10.0)
[2020-09-11] MEDS ORDERED: INFLUENZA QUAD (6MOS+) 2020-21 VAC 0.5 ML SYR IM ONE (08:00)
[2020-09-11] MEDS: IPRATROPIUM BROMIDE 0.02% NEB 0.5 MG/2.5 ML AMPUL NEB SCH ×3 (08:13→20:25)
[2020-09-11] MEDS: FAMOTIDINE 20 MG TABLET PO SCH ×2 (10:50→22:53)
[2020-09-11] MEDS: DOCUSATE SODIUM 100 MG CAPSULE PO SCH (10:50)
[2020-09-11] MEDS: DIGOXIN 0.125 MG TABLET PO SCH (10:50)
[2020-09-11] MEDS: ZINC SULFATE 220 MG CAPSULE PO SCH (10:50)
[2020-09-11] MEDS: ASCORBIC ACID 500 MG TABLET PO SCH ×2 (10:50→17:19)
[2020-09-11] MEDS: ASPIRIN 81 MG TABLET, ENT COATED PO SCH (10:50)
[2020-09-11] MEDS: CHOLECALCIFEROL (D3) 1,000 UNIT (25 MCG) TABLET PO SCH (10:51)
[2020-09-11] MEDS: GUAIFENESIN 600 MG TABLET.SA PO SCH ×2 (10:51→22:52)
--- NOTE | 2020-09-11 15:25 | PDOC PROGRESS REPORT ---
Subjective Date:: 09/11/20 Subjective:: Patient is still on high flow oxygen however she is doing better. Was placed on BiPAP during the night but currently on high flow oxygen Reason For Visit: COVID-19 Physical Exam Vital Signs: Temp Pulse Resp BP Pulse Ox 98.7 F 91 24 H 123/76 91 L 09/11/20 12:27 09/11/20 14:00 09/11/20 14:00 09/11/20 12:27 09/11/20 14:00 Intake & Output 09/10/20 09/11/20 09/12/20 06:59 06:59 06:59 Intake Total 1500 1928 220 Output Total 750 2075 Balance 750 -147 220 Weight 132.3 kg 130.4 kg General appearance: PRESENT: no acute distress, morbidly obese Head exam: PRESENT: atraumatic, normocephalic Eye exam: PRESENT: conjunctiva pink, PERRLA. ABSENT: scleral icterus Mouth exam: PRESENT: tongue midline Neck exam: ABSENT: carotid bruit, JVD, lymphadenopathy, thyromegaly Respiratory exam: PRESENT: rhonchi. ABSENT: rales, wheezes Cardiovascular exam: PRESENT: RRR. ABSENT: diastolic murmur, rubs, systolic murmur Pulses: PRESENT: normal dorsalis pedis pul Vascular exam: PRESENT: normal capillary refill GI/Abdominal exam: PRESENT: normal bowel sounds, soft. ABSENT: distended, guarding, mass, organolmegaly, rebound, tenderness Rectal exam: PRESENT: deferred Extremities exam: PRESENT: full ROM. ABSENT: calf tenderness, clubbing, pedal edema Neurological exam: PRESENT: alert, awake, oriented to person, oriented to place, oriented to time, oriented to situation, CN II-XII grossly intact. ABSENT: motor sensory deficit Psychiatric exam: PRESENT: appropriate affect, normal mood. ABSENT: homicidal ideation, suicidal ideation Skin exam: PRESENT: dry, intact, warm. ABSENT: cyanosis, rash Results Laboratory Results: 09/07/20 05:48 09/08/20 05:18 09/11/20 09/11/20 03:44 05:09 Carbonic Acid 1.10 HCO3/H2CO3 Ratio 21:1 ABG pH 7.43 ABG pCO2 36.5 ABG pO2 52.3 L ABG HCO3 23.6 ABG O2 Saturation 88.1 L ABG Base Excess -0.3 FiO2 100% Ferritin 906.00 H C-Reactive Protein 45.6 H 08/31/20 09/11/20 09/11/20 12:15 05:09 05:09 Troponin I < 0.012 < 0.012 NT-Pro-B Natriuret Pep 1170 H Impressions: Chest X-Ray 09/10/20 00:00 IMPRESSION: 1. Interval progression of bilateral alveolar and interstitial infiltrates since the prior study dated 08/31/2020. The patient has a history of known COVID-19 disease. Assessment and Plan - Diagnosis (1) Acute respiratory failure due to COVID-19 Is this a current diagnosis for this admission?: Yes Plan: Worsened overnight. Patient was on HFNC 100% plus partial nonrebreather this AM on encounter and still currently. She actually appear very comfortable and ta lking fluently. I will switch her to BiPAP an hour after she finishes dinner. If Bipap is not sufficient then will need to upgrade LOC Patient has been mostly about net even in terms of her fluid balance on I's and O's Initially showed some improvement but unfortunately it seems patient's hypoxia i s worsening from her Covid sequelae. She is not spiking any fevers. We will check a chest x-ray today. 09/11 breathing is much improved although she remains pretty hypoxic. We will continue to support oxygen as tolerated (2) Anxiety Is this a current diagnosis for this admission?: Yes Plan: On her home regimen of Xanax as needed (3) Dyslipidemia Is this a current diagnosis for this admission?: Yes Plan: ASCVD score of 18.1.% High intensity statins indicated. Continue atorvastatin 40 mg nightly. (4) Hypertension Qualifiers: Hypertension type: essential hypertension Qualified Code(s): I10 - Essential (primary) hypertension Is this a current diagnosis for this admission?: Yes Plan: Losartan has been stopped as patient is on Lopressor every 6 hours for heart rate. Will monitor blood pressure and adjust medications as needed (5) Hypothyroidism Is this a current diagnosis for this admission?: Yes Plan: Continue home meds. TSH WNL. (6) Morbid obesity with BMI of 45.0-49.9, adult Is this a current diagnosis for this admission?: Yes (7) Paroxysmal atrial fibrillation with rapid ventricular response Is this a current diagnosis for this admission?: Yes Plan: Likely being driven by current illness. Seems to be new onset of A. fib. CHADSVASC of 3 --currently on Xarelto TTE suboptimal shows normal ejection fraction. Valves cannot be adequately assessed due to poor windows. Lopressor 50 mg every 6 hours Received oral digoxin load 0.25 mg x 3. Continue 0.125 mg daily. HR seems better controlled today. 12/8 heart rate much better controlled. Continue with oral digoxin as well as Lopressor (8) Pneumonia due to COVID-19 virus Is this a current diagnosis for this admission?: Yes Plan: s/p 5 days of azithromycin and remdesivir and 10 days of dexamethasone Ceftriaxone discontinued after 4 days. s/p convalescent plasma Mostly dealing with the post-pneumonia sequelae and lung damage at this point PT/OT as tolerated - Time Time Spent with patient: 15-24 minutes Medications reviewed and adjusted accordingly: Yes Anticipated Discharge Disposition: [facility] Facility Anticipated Discharge Timeframe: when bed available
[2020-09-11] MEDS: RIVAROXABAN 10 MG TABLET PO SCH (17:19)
--- NOTE | 2020-09-11 17:58 | EKG REPORT ---
SEVERITY:- ABNORMAL ECG - ATRIAL FIBRILLATION, V-RATE 68-84 : Confirmed by: Francesco Haji 11-Sep-2020 17:58:16
[2020-09-11] MEDS: ATORVASTATIN CALCIUM 40 MG TABLET PO SCH (22:52)
[2020-09-12] MEDS: ALPRAZOLAM 0.25 MG TABLET PO PRN ×3 (01:48→23:16)
[2020-09-12] MEDS: METOPROLOL TARTRATE 50 MG TABLET PO SCH ×4 (05:31→23:00)
[2020-09-12] MEDS: LEVOTHYROXINE SODIUM 0.088 MG TABLET PO SCH (05:31)
[2020-09-12] MEDS: METHYLPREDNISOLONE INJ 40 MG/1 ML SDV IV SCH ×3 (05:31→23:00)
[2020-09-12 06:02] LABS: HEMOGLOBIN 13.8 g/dL (12.0-15.5); MEAN CORPUSCULAR HGB CONC 34.4 g/dL (32.0-36.0); MEAN CORPUSCULAR VOLUME 90 fl (80-97); PLATELET COUNT 493 10^3/uL (150-450); RED BLOOD COUNT 4.43 10^6/uL (3.72-5.28); RED CELL DISTRIBUTION WIDTH 13.4 % (11.5-14.0); WHITE BLOOD COUNT 18.7 10^3/uL (4.0-10.5)
[2020-09-12 06:12] LABS: ANION GAP 9 (5-19); BLOOD UREA NITROGEN 29 mg/dL (7-20); C-REACTIVE PROTEIN 43.1 mg/L (<10.0); CALCIUM 8.6 mg/dL (8.4-10.2); CARBON DIOXIDE 26 mmol/L (22-30); CHLORIDE 103 mmol/L (98-107); GLUCOSE 119 mg/dL (75-110); POTASSIUM 4.6 mmol/L (3.6-5.0)
[2020-09-12 06:34] LABS: ABSOLUTE LYMPHOCYTES# (MANUAL) 0.2 10^3/uL (0.5-4.7); ABSOLUTE MONOCYTES # (MANUAL) 0.2 10^3/uL (0.1-1.4); BAND NEUTROPHILS % (MANUAL) 1 % (3-5); BASOPHILS % (MANUAL) 0 % (0-2); EOSINOPHILS % (MANUAL) 0 % (0-6); LYMPHOCYTES % (MANUAL) 1 % (13-45); MONOCYTES % (MANUAL) 1 % (3-13); SEGMENTED NEUTROPHILS % (MAN) 97 % (42-78); TOTAL CELLS COUNTED 100
[2020-09-12 06:35] LABS: PLATELET COMMENT INCREASED; RBC MORPHOLOGY COMMENT NORMO-CYTIC/CHROMIC
[2020-09-12] MEDS: IPRATROPIUM BROMIDE 0.02% NEB 0.5 MG/2.5 ML AMPUL NEB SCH ×3 (08:04→20:00)
[2020-09-12] MEDS: FAMOTIDINE 20 MG TABLET PO SCH ×2 (10:07→22:59)
[2020-09-12] MEDS: DIGOXIN 0.125 MG TABLET PO SCH (10:07)
[2020-09-12] MEDS: ZINC SULFATE 220 MG CAPSULE PO SCH (10:07)
[2020-09-12] MEDS: GUAIFENESIN 600 MG TABLET.SA PO SCH ×2 (10:08→22:59)
[2020-09-12] MEDS: DOCUSATE SODIUM 100 MG CAPSULE PO SCH (10:08)
[2020-09-12] MEDS: ASPIRIN 81 MG TABLET, ENT COATED PO SCH (10:08)
[2020-09-12] MEDS: CHOLECALCIFEROL (D3) 1,000 UNIT (25 MCG) TABLET PO SCH (10:08)
[2020-09-12] MEDS: ASCORBIC ACID 500 MG TABLET PO SCH ×2 (10:08→17:58)
--- NOTE | 2020-09-12 17:00 | PDOC PROGRESS REPORT ---
Subjective Date:: 09/12/20 Subjective:: Patient is still on high flow oxygen however she is doing better. Was placed on BiPAP during the night but currently on high flow oxygen 09/12 Patient is back on 100% oxygen CPAP. Her condition remains critically precarious Reason For Visit: COVID-19 Physical Exam Vital Signs: Temp Pulse Resp BP Pulse Ox 98.4 F 105 H 29 H 118/87 H 94 09/12/20 10:00 09/12/20 14:00 09/12/20 13:20 09/12/20 08:09 09/12/20 13:20 Intake & Output 09/11/20 09/12/20 09/13/20 06:59 06:59 06:59 Intake Total 1928 440 Output Total 4972 725 Balance -147 -285 Weight 130.4 kg 133.5 kg General appearance: PRESENT: no acute distress, morbidly obese Head exam: PRESENT: atraumatic Eye exam: PRESENT: conjunctiva pink, EOMI. ABSENT: scleral icterus Ear exam: PRESENT: normal external ear exam Neck exam: ABSENT: carotid bruit, JVD, lymphadenopathy, thyromegaly Respiratory exam: PRESENT: decreased breath sounds, rhonchi. ABSENT: rales, wheezes Cardiovascular exam: PRESENT: irregular rhythm, +S1, +S2. ABSENT: diastolic murmur, rubs, systolic murmur GI/Abdominal exam: PRESENT: normal bowel sounds, soft. ABSENT: distended, guarding, mass, organolmegaly, rebound, tenderness Rectal exam: PRESENT: deferred Extremities exam: PRESENT: full ROM. ABSENT: calf tenderness, clubbing, pedal edema Neurological exam: PRESENT: alert, awake, oriented to person, oriented to place, oriented to time, oriented to situation, CN II-XII grossly intact. ABSENT: motor sensory deficit Psychiatric exam: PRESENT: appropriate affect, normal mood. ABSENT: homicidal ideation, suicidal ideation Skin exam: PRESENT: dry, intact, warm. ABSENT: cyanosis, rash Results Laboratory Results: 09/12/20 04:30 09/12/20 04:30 09/12/20 09/12/20 04:30 04:30 WBC 18.7 H RBC 4.43 Hgb 13.8 Hct 40.0 MCV 90 MCH 31.0 MCHC 34.4 RDW 13.4 Plt Count 493 H Seg Neutrophils % Not Reportable Sodium 137.7 Potassium 4.6 Chloride 103 Carbon Dioxide 26 Anion Gap 9 BUN 29 H Creatinine 0.70 Est GFR ( Amer) > 60 Glucose 119 H Calcium 8.6 Ferritin 879.00 H C-Reactive Protein 43.1 H 08/31/20 09/11/20 09/11/20 12:15 05:09 05:09 Troponin I < 0.012 < 0.012 NT-Pro-B Natriuret Pep 1170 H Impressions: Chest X-Ray 09/10/20 00:00 IMPRESSION: 1. Interval progression of bilateral alveolar and interstitial infiltrates since the prior study dated 08/31/2020. The patient has a history of known COVID-19 disease. Assessment and Plan - Diagnosis (1) Acute respiratory failure due to COVID-19 Is this a current diagnosis for this admission?: Yes (2) Anxiety Is this a current diagnosis for this admission?: Yes (3) Dyslipidemia Is this a current diagnosis for this admission?: Yes (4) Hypertension Qualifiers: Hypertension type: essential hypertension Qualified Code(s): I10 - Essential (primary) hypertension Is this a current diagnosis for this admission?: Yes (5) Hypothyroidism Is this a current diagnosis for this admission?: Yes (6) Morbid obesity with BMI of 45.0-49.9, adult Is this a current diagnosis for this admission?: Yes (7) Paroxysmal atrial fibrillation with rapid ventricular response Is this a current diagnosis for this admission?: Yes (8) Pneumonia due to COVID-19 virus Is this a current diagnosis for this admission?: Yes - Plan Summary Summary: Leukocytosis is likely secondary to steroids. Will consider follow-up chest x- ray in a.m. if condition remains the same - Time Time Spent with patient: 15-24 minutes Medications reviewed and adjusted accordingly: Yes Anticipated Discharge Disposition: [facility] Facility Anticipated Discharge Timeframe: within 72 hours
--- NOTE | 2020-09-12 17:04 | Progress Note ---
Provider Note Provider Note: She is still on Solu-Medrol 40 mg IV every 8 hourly as well as on Xarelto 20 mg at bedtime and metoprolol 50 mg every 6 hours continue with same regimen for now and adjust as needed. I will
[2020-09-12] MEDS: RIVAROXABAN 10 MG TABLET PO SCH (17:58)
[2020-09-12] MEDS: ATORVASTATIN CALCIUM 40 MG TABLET PO SCH (22:59)
[2020-09-13] MEDS: METHYLPREDNISOLONE INJ 40 MG/1 ML SDV IV SCH ×3 (05:33→23:27)
[2020-09-13] MEDS: METOPROLOL TARTRATE 50 MG TABLET PO SCH ×4 (05:33→23:27)
[2020-09-13] MEDS: LEVOTHYROXINE SODIUM 0.088 MG TABLET PO SCH (05:33)
[2020-09-13 05:43] LABS: C-REACTIVE PROTEIN 26.9 mg/L (<10.0)
[2020-09-13] MEDS: IPRATROPIUM BROMIDE 0.02% NEB 0.5 MG/2.5 ML AMPUL NEB SCH ×3 (07:58→20:04)
[2020-09-13] MEDS: ALPRAZOLAM 0.25 MG TABLET PO PRN ×2 (08:31→23:27)
[2020-09-13] MEDS: CHOLECALCIFEROL (D3) 1,000 UNIT (25 MCG) TABLET PO SCH (09:58)
[2020-09-13] MEDS: ZINC SULFATE 220 MG CAPSULE PO SCH (09:58)
[2020-09-13] MEDS: ASCORBIC ACID 500 MG TABLET PO SCH ×2 (09:58→17:11)
[2020-09-13] MEDS: GUAIFENESIN 600 MG TABLET.SA PO SCH ×2 (09:58→23:27)
[2020-09-13] MEDS: DOCUSATE SODIUM 100 MG CAPSULE PO SCH (09:58)
[2020-09-13] MEDS: FAMOTIDINE 20 MG TABLET PO SCH ×2 (09:59→23:27)
[2020-09-13] MEDS: ASPIRIN 81 MG TABLET, ENT COATED PO SCH (09:59)
[2020-09-13] MEDS: DIGOXIN 0.125 MG TABLET PO SCH (09:59)
[2020-09-13] MEDS: RIVAROXABAN 10 MG TABLET PO SCH (17:11)
--- NOTE | 2020-09-13 17:15 | PDOC PROGRESS REPORT ---
Subjective Date:: 09/13/20 Subjective:: Patient is still on high flow oxygen however she is doing better. Was placed on BiPAP during the night but currently on high flow oxygen 09/12 Patient is back on 100% oxygen CPAP. Her condition remains critically precarious 09/13 she remains on 100% oxygen on CPAP. Her condition is stabilized although still pretty critical. Oxygen saturation is 98% Reason For Visit: COVID-19 Physical Exam Vital Signs: Temp Pulse Resp BP Pulse Ox 97.4 F 76 23 H 134/75 H 90 L 09/13/20 10:00 09/13/20 14:00 09/13/20 13:18 09/13/20 08:36 09/13/20 13:18 Intake & Output 09/12/20 09/13/20 09/14/20 06:59 06:59 06:59 Intake Total 440 0 Output Total 725 950 Balance -285 -950 Weight 133.5 kg 131.8 kg 131.8 kg General appearance: PRESENT: no acute distress, morbidly obese, well-nourished Head exam: PRESENT: atraumatic Eye exam: PRESENT: conjunctiva pink. ABSENT: scleral icterus Mouth exam: PRESENT: tongue midline Neck exam: ABSENT: carotid bruit, JVD, lymphadenopathy, thyromegaly Respiratory exam: PRESENT: clear to auscultation khadijah. ABSENT: rales, rhonchi, wheezes Cardiovascular exam: PRESENT: irregular rhythm, +S1, +S2. ABSENT: diastolic murmur, rubs, systolic murmur Pulses: PRESENT: normal dorsalis pedis pul Vascular exam: PRESENT: normal capillary refill GI/Abdominal exam: PRESENT: normal bowel sounds, soft. ABSENT: distended, guarding, mass, organolmegaly, rebound, tenderness Rectal exam: PRESENT: deferred Extremities exam: PRESENT: full ROM. ABSENT: calf tenderness, clubbing, pedal edema Neurological exam: PRESENT: alert, awake, oriented to person, oriented to place, oriented to time, oriented to situation, CN II-XII grossly intact. ABSENT: motor sensory deficit Psychiatric exam: PRESENT: appropriate affect, normal mood. ABSENT: homicidal ideation, suicidal ideation Skin exam: PRESENT: dry, intact, warm. ABSENT: cyanosis, rash Results Laboratory Results: 09/12/20 04:30 09/12/20 04:30 09/13/20 04:24 Ferritin 856.00 H C-Reactive Protein 26.9 H 08/31/20 09/11/20 09/11/20 12:15 05:09 05:09 Troponin I < 0.012 < 0.012 NT-Pro-B Natriuret Pep 1170 H Impressions: Chest X-Ray 09/10/20 00:00 IMPRESSION: 1. Interval progression of bilateral alveolar and interstitial infiltrates since the prior study dated 08/31/2020. The patient has a history of known COVID-19 disease. Assessment and Plan - Diagnosis (1) Acute respiratory failure due to COVID-19 Is this a current diagnosis for this admission?: Yes (2) Anxiety Is this a current diagnosis for this admission?: Yes (3) Dyslipidemia Is this a current diagnosis for this admission?: Yes (4) Hypertension Qualifiers: Hypertension type: essential hypertension Qualified Code(s): I10 - Essential (primary) hypertension Is this a current diagnosis for this admission?: Yes (5) Hypothyroidism Is this a current diagnosis for this admission?: Yes (6) Morbid obesity with BMI of 45.0-49.9, adult Is this a current diagnosis for this admission?: Yes (7) Paroxysmal atrial fibrillation with rapid ventricular response Is this a current diagnosis for this admission?: Yes (8) Pneumonia due to COVID-19 virus Is this a current diagnosis for this admission?: Yes - Plan Summary Summary: Leukocytosis is likely secondary to steroids. Will consider follow-up chest x- ray in a.m. if condition remains the same 09/13 patient's condition remains grossly unchanged. She reiterates that she wants to be full code. We will continue with the same management, recheck labs in a.m. as well as a chest x-ray. - Time Time Spent with patient: 15-24 minutes Medications reviewed and adjusted accordingly: Yes Anticipated Discharge Disposition: [facility] Facility Anticipated Discharge Timeframe: TBD
[2020-09-13] MEDS: IVERMECTIN 3 MG TABLET PO SCH (19:34)
[2020-09-13] MEDS: ATORVASTATIN CALCIUM 40 MG TABLET PO SCH (23:26)
[2020-09-14] MEDS: LEVOTHYROXINE SODIUM 0.088 MG TABLET PO SCH (05:45)
[2020-09-14] MEDS: METOPROLOL TARTRATE 50 MG TABLET PO SCH ×3 (05:45→17:18)
[2020-09-14] MEDS: METHYLPREDNISOLONE INJ 40 MG/1 ML SDV IV SCH ×2 (05:45→21:11)
[2020-09-14 05:52] LABS: HEMATOCRIT 43.6 % (36.0-47.0); HEMOGLOBIN 14.7 g/dL (12.0-15.5); MEAN CORPUSCULAR HEMOGLOBIN 30.1 pg (27.0-33.4); MEAN CORPUSCULAR HGB CONC 33.7 g/dL (32.0-36.0); MEAN CORPUSCULAR VOLUME 89 fl (80-97); PLATELET COUNT 491 10^3/uL (150-450); RED CELL DISTRIBUTION WIDTH 13.8 % (11.5-14.0); WHITE BLOOD COUNT 17.9 10^3/uL (4.0-10.5)
[2020-09-14 06:10] LABS: ABSOLUTE LYMPHOCYTES# (MANUAL) 0.4 10^3/uL (0.5-4.7); BAND NEUTROPHILS % (MANUAL) 1 % (3-5); BASOPHILS % (MANUAL) 0 % (0-2); EOSINOPHILS % (MANUAL) 0 % (0-6); LYMPHOCYTES % (MANUAL) 2 % (13-45); MONOCYTES % (MANUAL) 0 % (3-13); SEGMENTED NEUTROPHILS % (MAN) 97 % (42-78); TOTAL CELLS COUNTED 100
[2020-09-14 06:11] LABS: PLATELET COMMENT INCREASED; RBC MORPHOLOGY COMMENT NORMO-CYTIC/CHROMIC
[2020-09-14 06:16] LABS: ANION GAP 9 (5-19); BLOOD UREA NITROGEN 36 mg/dL (7-20); C-REACTIVE PROTEIN 21.1 mg/L (<10.0); CALCIUM 8.9 mg/dL (8.4-10.2); CARBON DIOXIDE 25 mmol/L (22-30); CHLORIDE 103 mmol/L (98-107); GLUCOSE 131 mg/dL (75-110); POTASSIUM 5.3 mmol/L (3.6-5.0)
[2020-09-14] MEDS: LEVALBUTEROL HCL NEB 0.63 MG/3 ML AMPUL NEB PRN (08:08)
[2020-09-14] MEDS: IPRATROPIUM BROMIDE 0.02% NEB 0.5 MG/2.5 ML AMPUL NEB SCH ×3 (08:08→20:53)
--- NOTE | 2020-09-14 08:32 | RADIOLOGY REPORT (SQ) ---
EXAM DESCRIPTION: CHEST SINGLE VIEW IMAGES COMPLETED DATE/TIME: 09/14/2020 12:41 am REASON FOR STUDY: F/u Pneumonia COMPARISON: AP view of the chest from 09/10/2020. EXAM PARAMETERS: NUMBER OF VIEWS: One view. TECHNIQUE: An AP view of the chest was obtained. RADIATION DOSE: NA LIMITATIONS: None. FINDINGS: LUNGS AND PLEURA: Unchanged bilateral basilar predominant patchy parenchymal opacities. T he costophrenic sulci are blunted. There is no pneumothorax. MEDIASTINUM AND HILAR STRUCTURES: Stable mediastinal and hilar contours. HEART AND VASCULAR STRUCTURES: Stable cardiac silhouette. BONES: No acute findings. HARDWARE: None in the chest. OTHER: No other finding. IMPRESSION: Unchanged radiographic appearance of the chest. TECHNICAL DOCUMENTATION: JOB ID: [id number] 2010 [employer]- All Rights Reserved Reading location - IP/workstation name: [email or web address]
[2020-09-14] MEDS: ZINC SULFATE 220 MG CAPSULE PO SCH (10:48)
[2020-09-14] MEDS: ASCORBIC ACID 500 MG TABLET PO SCH ×2 (10:49→17:18)
[2020-09-14] MEDS: DIGOXIN 0.125 MG TABLET PO SCH (10:49)
[2020-09-14] MEDS: DOCUSATE SODIUM 100 MG CAPSULE PO SCH (10:49)
[2020-09-14] MEDS: CHOLECALCIFEROL (D3) 1,000 UNIT (25 MCG) TABLET PO SCH (10:49)
[2020-09-14] MEDS: GUAIFENESIN 600 MG TABLET.SA PO SCH ×2 (10:49→21:11)
[2020-09-14] MEDS: ASPIRIN 81 MG TABLET, ENT COATED PO SCH (10:49)
[2020-09-14] MEDS: FAMOTIDINE 20 MG TABLET PO SCH ×2 (10:49→21:11)
[2020-09-14] MEDS: IVERMECTIN 3 MG TABLET PO SCH (10:50)
[2020-09-14] MEDS: ALPRAZOLAM 0.25 MG TABLET PO PRN ×2 (10:58→21:11)
--- NOTE | 2020-09-14 11:25 | PDOC PROGRESS REPORT ---
Subjective Date:: 09/14/20 Subjective:: Seems patient has been CPAP dependent for the past few days. Unfortunately she has showed no progress. This morning, she denied any chest pain. She still feels some shortness of breath and notably felt a lot worse overnight. She seemed quite comfortable this morning while on CPAP. She has not been able to eat much of anything in the past few days due to her CPAP dependency. Reason For Visit: COVID-19 Physical Exam Vital Signs: Temp Pulse Resp BP Pulse Ox 97.5 F 87 30 H 115/86 H 89 L 09/14/20 08:19 09/14/20 08:19 09/14/20 08:19 09/14/20 08:19 09/14/20 08:19 Intake & Output 09/13/20 09/14/20 09/15/20 06:59 06:59 06:59 Intake Total 0 520 Output Total 950 1100 Balance -950 -580 Weight 131.8 kg 128.3 kg General appearance: PRESENT: no acute distress, cooperative Neck exam: ABSENT: JVD Respiratory exam: PRESENT: clear to auscultation khadijah, symmetrical, tachypnea, unlabored. ABSENT: accessory muscle use, retraction, wheezes Cardiovascular exam: PRESENT: irregular rhythm, +S1, +S2. ABSENT: tachycardia GI/Abdominal exam: PRESENT: soft. ABSENT: rebound, rigid, tenderness Extremities exam: PRESENT: pedal edema - TRACE Neurological exam: PRESENT: alert, awake, oriented to person, oriented to place, oriented to time, oriented to situation Psychiatric exam: ABSENT: agitated, anxious Focused psych exam: ABSENT: pressured speech Results Laboratory Results: 09/14/20 05:06 09/14/20 05:06 09/14/20 09/14/20 05:06 05:06 WBC 17.9 H RBC 4.90 Hgb 14.7 Hct 43.6 MCV 89 MCH 30.1 MCHC 33.7 RDW 13.8 Plt Count 491 H Seg Neutrophils % Not Reportable Sodium 137.0 Potassium 5.3 H Chloride 103 Carbon Dioxide 25 Anion Gap 9 BUN 36 H Creatinine 0.55 Est GFR ( Amer) > 60 Glucose 131 H Calcium 8.9 Ferritin 911.00 H C-Reactive Protein 21.1 H 08/31/20 09/11/20 09/11/20 12:15 05:09 05:09 Troponin I < 0.012 < 0.012 NT-Pro-B Natriuret Pep 1170 H Impressions: Chest X-Ray 09/14/20 08:00 IMPRESSION: Unchanged radiographic appearance of the chest. Assessment and Plan - Diagnosis (1) Pneumonia due to COVID-19 virus Is this a current diagnosis for this admission?: Yes Plan: s/p 5 days of azithromycin and remdesivir and 10 days of dexamethasone Ceftriaxone discontinued after 4 days. s/p convalescent plasma Mostly dealing with the post-pneumonia sequelae and lung damage at this point PT/OT as tolerated (2) Acute respiratory failure due to COVID-19 Is this a current diagnosis for this admission?: Yes Plan: Unfortunately there has been no improvement in her oxygenation over the past few days. She still remains on CPAP 14/100% with SPO2 in the low 90s to high 80s. (3) Paroxysmal atrial fibrillation with rapid ventricular response Is this a current diagnosis for this admission?: Yes Plan: Likely being driven by current illness. Seems to be new onset of A. fib. CHADSVASC of 3 --currently on Xarelto TTE suboptimal shows normal ejection fraction. Valves cannot be adequately assessed due to poor windows. Lopressor 50 mg every 6 hours Continue digoxin 0.125 mg daily. (4) Inadequate oral nutritional intake Is this a current diagnosis for this admission?: Yes Plan: Patient has not been able to have adequate nutrition due to her CPAP dependency. If she is not able to get on a high flow nasal cannula today, we will place a Dobbhoff and start her on enteral feeding. (5) Hypertension Qualifiers: Hypertension type: essential hypertension Qualified Code(s): I10 - Essential (primary) hypertension Is this a current diagnosis for this admission?: Yes Plan: BP is adequate. On Lopressor. (6) Anxiety Is this a current diagnosis for this admission?: Yes Plan: On her home regimen of Xanax as needed (7) Morbid obesity with BMI of 45.0-49.9, adult Is this a current diagnosis for this admission?: Yes - Time Time Spent with patient: 15-24 minutes Anticipated Discharge Disposition: Home with Home Health Anticipated Discharge Timeframe: Unknown
[2020-09-14] MEDS: METOPROLOL TARTRATE PF/INJ 5 MG/5 ML SDV IV PRN (12:52)
[2020-09-14] MEDS ORDERED: METOPROLOL TARTRATE PF/INJ 5 MG/5 ML SDV IV ONE (14:57)
[2020-09-14] MEDS: RIVAROXABAN 10 MG TABLET PO SCH (17:18)
[2020-09-14] MEDS: ATORVASTATIN CALCIUM 40 MG TABLET PO SCH (21:11)
[2020-09-15] MEDS: METOPROLOL TARTRATE PF/INJ 5 MG/5 ML SDV IV PRN (01:30)
[2020-09-15] MEDS: METOPROLOL TARTRATE 50 MG TABLET PO SCH ×4 (01:31→17:25)
[2020-09-15] MEDS ORDERED: METOPROLOL TARTRATE PF/INJ 5 MG/5 ML SDV IV ONE (04:30)
[2020-09-15] MEDS: ALPRAZOLAM 0.25 MG TABLET PO PRN ×2 (05:23→21:25)
[2020-09-15] MEDS: GUAIFENESIN/D-METHORPHAN (200-20 MG) SYRUP 10 ML PO PRN ×2 (05:23→21:24)
[2020-09-15] MEDS: LEVOTHYROXINE SODIUM 0.088 MG TABLET PO SCH (05:24)
[2020-09-15 06:17] LABS: C-REACTIVE PROTEIN 43.1 mg/L (<10.0)
[2020-09-15] MEDS: LEVALBUTEROL HCL NEB 0.63 MG/3 ML AMPUL NEB PRN (08:39)
[2020-09-15] MEDS: IPRATROPIUM BROMIDE 0.02% NEB 0.5 MG/2.5 ML AMPUL NEB SCH ×3 (08:39→20:32)
[2020-09-15] MEDS: CHOLECALCIFEROL (D3) 1,000 UNIT (25 MCG) TABLET PO SCH (09:52)
[2020-09-15] MEDS: FAMOTIDINE 20 MG TABLET PO SCH ×2 (09:52→21:25)
[2020-09-15] MEDS: ASPIRIN 81 MG TABLET, ENT COATED PO SCH (09:52)
[2020-09-15] MEDS: GUAIFENESIN 600 MG TABLET.SA PO SCH ×2 (09:52→21:25)
[2020-09-15] MEDS: ZINC SULFATE 220 MG CAPSULE PO SCH (09:52)
[2020-09-15] MEDS: ASCORBIC ACID 500 MG TABLET PO SCH ×2 (09:52→17:25)
[2020-09-15] MEDS: DIGOXIN 0.125 MG TABLET PO SCH (09:52)
[2020-09-15] MEDS: DOCUSATE SODIUM 100 MG CAPSULE PO SCH (09:53)
[2020-09-15] MEDS: METHYLPREDNISOLONE INJ 40 MG/1 ML SDV IV SCH ×2 (09:53→21:25)
--- NOTE | 2020-09-15 14:10 | PDOC PROGRESS REPORT ---
Subjective Subjective:: Per Previous Physician: "SU BOND is a 70 year old female past medical history of hypertension and hypothyroidism presented to ED complaining of worsening shortness of breath. Patient was recently exposed to COVID-19, stating that a week after exposure she was feeling tired and went to get tested for COVID-19, on Thursday he was called and told that she had tested positive for COVID-19. Patient is stating that her fatigue and shortness of breath got worse and that is what brought her to the ED. Patient is stating that she did not have any fever, anosmia, dysgeusia, she did have diarrhea which has resolved. Denies any chest pain, fever, chills, nausea, vomiting, diarrhea, constipation or any urinary symptoms. ED she was noted to be hypoxic, chest x-ray was positive for diffuse bilateral alveolar interstitial infiltrates. Hospitalist consulted for admission." 09/15/2020 Patient is tachypneic today on 15 L on CPAP saturation at 92%. Her A. fib appears to be intermittently controlled although nursing states she required some as needed beta-migel for persistently elevated heart rate. Blood pre ssure stable and electrolytes are normal as of last lab check. Last magnesium level was 2.2 collected on 09/08. Patient's digoxin level was subtherapeutic when it was checked yesterday. Renal function is normal. I have increased her dose of digoxin hopefully maintain better control of atrial fibrillation. Reason For Visit: COVID-19 Physical Exam Vital Signs: Temp Pulse Resp BP Pulse Ox 98.1 F 115 H 26 H 113/71 92 09/15/20 10:00 09/15/20 08:40 09/15/20 08:40 09/15/20 08:18 09/15/20 12:00 Intake & Output 09/14/20 09/15/20 09/16/20 06:59 06:59 06:59 Intake Total 520 100 Output Total 1100 850 Balance -580 -750 Weight 128.3 kg 127.3 kg Exam: General appearance: PRESENT: no acute distress, well-developed, well-nourished, morbidly obese with BMI 46.7, chronically ill-appearing elderly white female Head exam: PRESENT: atraumatic, normocephalic Eye exam: PRESENT: conjunctiva pink. ABSENT: scleral icterus Mouth exam: PRESENT: moist Respiratory exam: PRESENT: Very scant crackles bilaterally ABSENT: rales, wheezes Cardiovascular exam: PRESENT: RRR. ABSENT: diastolic murmur, rubs, systolic murmur GI/Abdominal exam: PRESENT: normal bowel sounds, soft. ABSENT: distended, guarding, mass, organolmegaly, rebound, tenderness Neurological exam: PRESENT: alert, awake, oriented to person, oriented to place, oriented to time, oriented to situation Psychiatric exam: PRESENT: appropriate affect, normal mood Skin exam: PRESENT: dry, intact, warm Results Laboratory Results: 09/14/20 05:06 09/14/20 16:18 09/14/20 09/15/20 16:18 04:55 Potassium 4.9 Ferritin 996.00 H C-Reactive Protein 43.1 H 08/31/20 09/11/20 09/11/20 12:15 05:09 05:09 Troponin I < 0.012 < 0.012 NT-Pro-B Natriuret Pep 1170 H Impressions: Chest X-Ray 09/14/20 08:00 IMPRESSION: Unchanged radiographic appearance of the chest. Assessment and Plan - Diagnosis (1) Acute respiratory failure due to COVID-19 Is this a current diagnosis for this admission?: Yes (2) Anxiety Is this a current diagnosis for this admission?: Yes (3) Dyslipidemia Is this a current diagnosis for this admission?: Yes (4) Hypertension Qualifiers: Hypertension type: essential hypertension Qualified Code(s): I10 - Essential (primary) hypertension Is this a current diagnosis for this admission?: Yes (5) Hypothyroidism Is this a current diagnosis for this admission?: Yes (6) Inadequate oral nutritional intake Is this a current diagnosis for this admission?: Yes (7) Morbid obesity Is this a current diagnosis for this admission?: Yes (8) Morbid obesity with BMI of 45.0-49.9, adult Is this a current diagnosis for this admission?: Yes (9) Paroxysmal atrial fibrillation with rapid ventricular response Is this a current diagnosis for this admission?: Yes (10) Pneumonia due to COVID-19 virus Is this a current diagnosis for this admission?: Yes - Plan Summary Summary: (1) Pneumonia due to COVID-19 virus Per Previous Physician: "s/p 5 days of azithromycin and remdesivir and 10 days of dexamethasone Ceftriaxone discontinued after 4 days. s/p convalescent plasma Mostly dealing with the post-pneumonia sequelae and lung damage at this point PT/OT as tolerated" -Status post ivermectin (2) Acute respiratory failure due to COVID-19 Per Previous Physician: "Unfortunately there has been no improvement in her oxygenation over the past few days. She still remains on CPAP 14/100% with SPO2 in the low 90s to high 80s." -Maintained on CPAP plus supplemental oxygen Extremely slow to recover (3) Paroxysmal atrial fibrillation with rapid ventricular response Is this a current diagnosis for this admission?: Yes Plan: Per Previous Physician: "Likely being driven by current illness. Seems to be new onset of A. fib. CHADSVASC of 3 --currently on Xarelto TTE suboptimal shows normal ejection fraction. Valves cannot be adequately assessed due to poor windows. Lopressor 50 mg every 6 hours Continue digoxin 0.125 mg daily." -Digoxin level subtherapeutic, increased digoxin dose (4) Inadequate oral nutritional intake Is this a current diagnosis for this admission?: Yes Plan: Per Previous Physician: "Patient has not been able to have adequate nutrition due to her CPAP dependency. If she is not able to get on a high flow nasal cannula today, we will place a Dobbhoff and start her on enteral feeding." (5) Hypertension Qualifiers: Hypertension type: essential hypertension Qualified Code(s): I10 - Essential (primary) hypertension Is this a current diagnosis for this admission?: Yes Plan: BP is adequate. On Lopressor. (6) Anxiety Is this a current diagnosis for this admission?: Yes Plan: On her home regimen of Xanax as needed (7) Morbid obesity with BMI of 45.0-49.9, adult Is this a current diagnosis for this admission?: Yes - Time Time Spent with patient: 35 or more minutes Medications reviewed and adjusted accordingly: Yes Anticipated Discharge Disposition: [facility] Anticipated Discharge Timeframe: within 72 hours - Inpatient Certification Based on my medical assessment, after consideration of the patient's comorbidities, presenting symptoms, or acuity I expect that the services needed warrant INPATIENT care.: Yes I certify that my determination is in accordance with my understanding of Medicare's requirements for reasonable and necessary INPATIENT services [42 CFR 412.3e].: Yes Medical Necessity: Significant Comorbidiites Make Outpatient Treatment Too Risky, Need Close Monitoring Due to Risk of Patient Decompensation, Need For Continuous Telemetry Monitoring, Need for Nebulizer Therapy and Monitoring of Response, Risk of Complication if Not Cared For in Hospital, Risk of Diagnosis Which Will Require Inpatient Eval/Care/Monitoring
[2020-09-15] MEDS: RIVAROXABAN 10 MG TABLET PO SCH (17:25)
[2020-09-15] MEDS: ATORVASTATIN CALCIUM 40 MG TABLET PO SCH (21:25)
[2020-09-16] MEDS: METOPROLOL TARTRATE 50 MG TABLET PO SCH ×5 (00:52→23:14)
[2020-09-16] MEDS: ALPRAZOLAM 0.25 MG TABLET PO PRN (01:50)
[2020-09-16] MEDS: LEVOTHYROXINE SODIUM 0.088 MG TABLET PO SCH (05:10)
[2020-09-16 06:38] LABS: C-REACTIVE PROTEIN 60.1 mg/L (<10.0)
[2020-09-16] MEDS: IPRATROPIUM BROMIDE 0.02% NEB 0.5 MG/2.5 ML AMPUL NEB SCH ×3 (08:19→20:07)
[2020-09-16] MEDS: LEVALBUTEROL HCL NEB 0.63 MG/3 ML AMPUL NEB PRN (08:19)
[2020-09-16 08:31] LABS: HEMATOCRIT 44.9 % (36.0-47.0); HEMOGLOBIN 15.2 g/dL (12.0-15.5); MEAN CORPUSCULAR HEMOGLOBIN 31.1 pg (27.0-33.4); MEAN CORPUSCULAR HGB CONC 33.9 g/dL (32.0-36.0); MEAN CORPUSCULAR VOLUME 92 fl (80-97); PLATELET COUNT 391 10^3/uL (150-450); RED CELL DISTRIBUTION WIDTH 14.1 % (11.5-14.0); WHITE BLOOD COUNT 18.2 10^3/uL (4.0-10.5)
[2020-09-16 08:38] LABS: ANION GAP 10 (5-19); BLOOD UREA NITROGEN 36 mg/dL (7-20); CALCIUM 8.6 mg/dL (8.4-10.2); CARBON DIOXIDE 24 mmol/L (22-30); CHLORIDE 100 mmol/L (98-107); GLUCOSE 215 mg/dL (75-110)
[2020-09-16] MEDS: METHYLPREDNISOLONE INJ 40 MG/1 ML SDV IV SCH (09:03)
[2020-09-16] MEDS: FAMOTIDINE 20 MG TABLET PO SCH ×2 (09:03→21:17)
[2020-09-16] MEDS: ASCORBIC ACID 500 MG TABLET PO SCH ×3 (09:03→23:14)
[2020-09-16] MEDS: ASPIRIN 81 MG TABLET, ENT COATED PO SCH (09:03)
[2020-09-16] MEDS: CHOLECALCIFEROL (D3) 1,000 UNIT (25 MCG) TABLET PO SCH (09:03)
[2020-09-16] MEDS: GUAIFENESIN 600 MG TABLET.SA PO SCH ×2 (09:03→21:17)
[2020-09-16] MEDS: ZINC SULFATE 220 MG CAPSULE PO SCH (09:03)
[2020-09-16] MEDS: DOCUSATE SODIUM 100 MG CAPSULE PO SCH (09:03)
[2020-09-16] MEDS: DIGOXIN 0.25 MG TABLET PO SCH (09:05)
[2020-09-16 09:30] LABS: ABSOLUTE LYMPHOCYTES# (MANUAL) 0.4 10^3/uL (0.5-4.7); BASOPHILS % (MANUAL) 0 % (0-2); EOSINOPHILS % (MANUAL) 0 % (0-6); LYMPHOCYTES % (MANUAL) 2 % (13-45); MONOCYTES % (MANUAL) 0 % (3-13); SEGMENTED NEUTROPHILS % (MAN) 98 % (42-78); TOTAL CELLS COUNTED 100
[2020-09-16 09:31] LABS: ANISOCYTOSIS SLIGHT; TOXIC VACUOLATION PRESENT
[2020-09-16 09:32] LABS: PLATELET COMMENT ADEQUATE
[2020-09-16] MEDS ORDERED: DIGOXIN 0.125 MG TABLET PO SCH (10:00)
--- NOTE | 2020-09-16 15:05 | PDOC PROGRESS REPORT ---
Subjective Subjective:: Per Previous Physician: "SU BOND is a 70 year old female past medical history of hypertension and hypothyroidism presented to ED complaining of worsening shortness of breath. Patient was recently exposed to COVID-19, stating that a week after exposure she was feeling tired and went to get tested for COVID-19, on Thursday he was called and told that she had tested positive for COVID-19. Patient is stating that her fatigue and shortness of breath got worse and that is what brought her to the ED. Patient is stating that she did not have any fever, anosmia, dysgeusia, she did have diarrhea which has resolved. Denies any chest pain, fever, chills, nausea, vomiting, diarrhea, constipation or any urinary symptoms. ED she was noted to be hypoxic, chest x-ray was positive for diffuse bilateral alveolar interstitial infiltrates. Hospitalist consulted for admission." 09/15/2020 Patient is tachypneic today on 15 L on CPAP saturation at 92%. Her A. fib appears to be intermittently controlled although nursing states she required some as needed beta-migel for persistently elevated heart rate. Blood pre ssure stable and electrolytes are normal as of last lab check. Last magnesium level was 2.2 collected on 09/08. Patient's digoxin level was subtherapeutic when it was checked yesterday. Renal function is normal. I have increased her dose of digoxin hopefully maintain better control of atrial fibrillation. 09/16/2020 Patient seems be doing a bit worse now with rising oxygen requirements and less time able to maintain on high flow nasal cannula rather than CPAP. I have added multiple vitamin supplements and I have doubled the patient's methylprednisolone. Patient will be monitored very closely for any improvement or deterioration. Reason For Visit: COVID-19 Physical Exam Vital Signs: Temp Pulse Resp BP Pulse Ox 97.3 F 102 H 27 H 129/71 H 92 09/16/20 12:06 09/16/20 14:00 09/16/20 14:00 09/16/20 12:06 09/16/20 14:00 Intake & Output 09/15/20 09/16/20 09/17/20 06:59 06:59 06:59 Intake Total 100 420 Output Total 850 800 Balance -750 -380 Weight 127.3 kg 125.8 kg Exam: General appearance: PRESENT: no acute distress, well-developed, well-nourished, morbidly obese with BMI 46.7, chronically ill-appearing elderly white female, states she is still short of breath today Head exam: PRESENT: atraumatic, normocephalic Eye exam: PRESENT: conjunctiva pink. ABSENT: scleral icterus Mouth exam: PRESENT: moist Respiratory exam: PRESENT: Nearly clear, very scant crackles bilaterally ABSENT: rales, wheezes Cardiovascular exam: PRESENT: RRR. ABSENT: diastolic murmur, rubs, systolic murmur GI/Abdominal exam: PRESENT: normal bowel sounds, soft. ABSENT: distended, guarding, mass, organolmegaly, rebound, tenderness Neurological exam: PRESENT: alert, awake, oriented to person, oriented to place, oriented to time, oriented to situation Psychiatric exam: PRESENT: appropriate affect, normal mood Skin exam: PRESENT: dry, intact, warm Results Laboratory Results: 09/16/20 05:26 09/16/20 05:26 09/16/20 09/16/20 09/16/20 05:26 05:26 05:26 WBC 18.2 H RBC 4.90 Hgb 15.2 Hct 44.9 MCV 92 MCH 31.1 MCHC 33.9 RDW 14.1 H Plt Count 391 Seg Neutrophils % Not Reportable Sodium 134.2 L Potassium 5.0 Chloride 100 Carbon Dioxide 24 Anion Gap 10 BUN 36 H Creatinine 0.60 Est GFR ( Amer) > 60 Glucose 215 H Calcium 8.6 Ferritin 1420.00 H C-Reactive Protein 60.1 H 08/31/20 09/11/20 09/11/20 12:15 05:09 05:09 Troponin I < 0.012 < 0.012 NT-Pro-B Natriuret Pep 1170 H Impressions: Chest X-Ray 09/14/20 08:00 IMPRESSION: Unchanged radiographic appearance of the chest. Assessment and Plan - Diagnosis (1) Acute respiratory failure due to COVID-19 Is this a current diagnosis for this admission?: Yes (2) Anxiety Is this a current diagnosis for this admission?: Yes (3) Dyslipidemia Is this a current diagnosis for this admission?: Yes (4) Hypertension Qualifiers: Hypertension type: essential hypertension Qualified Code(s): I10 - Essential (primary) hypertension Is this a current diagnosis for this admission?: Yes (5) Hypothyroidism Is this a current diagnosis for this admission?: Yes (6) Inadequate oral nutritional intake Is this a current diagnosis for this admission?: Yes (7) Morbid obesity Is this a current diagnosis for this admission?: Yes (8) Morbid obesity with BMI of 45.0-49.9, adult Is this a current diagnosis for this admission?: Yes (9) Paroxysmal atrial fibrillation with rapid ventricular response Is this a current diagnosis for this admission?: Yes (10) Pneumonia due to COVID-19 virus Is this a current diagnosis for this admission?: Yes - Plan Summary Summary: (1) Pneumonia due to COVID-19 virus Per Previous Physician: "s/p 5 days of azithromycin and remdesivir and 10 days of dexamethasone Ceftriaxone discontinued after 4 days. s/p convalescent plasma Mostly dealing with the post-pneumonia sequelae and lung damage at this point PT/OT as tolerated" -Status post ivermectin Increased to methylprednisolone 80 mg every 12 hours and started multiple new vitamin supplements starting on 09/16 (2) Acute respiratory failure due to COVID-19 Per Previous Physician: "Unfortunately there has been no improvement in her oxygenation over the past few days. She still remains on CPAP 14/100% with SPO2 in the low 90s to high 80s." -Maintained on CPAP plus supplemental oxygen Extremely slow to recover (3) Paroxysmal atrial fibrillation with rapid ventricular response Is this a current diagnosis for this admission?: Yes Plan: Per Previous Physician: "Likely being driven by current illness. Seems to be new onset of A. fib. CHADSVASC of 3 --currently on Xarelto TTE suboptimal shows normal ejection fraction. Valves cannot be adequately assessed due to poor windows. Lopressor 50 mg every 6 hours Continue digoxin 0.125 mg daily." -Digoxin level subtherapeutic, increased digoxin dose Stopped rivaroxaban and started treatment dose Lovenox for clinical worsening (4) Inadequate oral nutritional intake Is this a current diagnosis for this admission?: Yes Plan: Per Previous Physician: "Patient has not been able to have adequate nutrition due to her CPAP dependency. If she is not able to get on a high flow nasal cannula today, we will place a Dobbhoff and start her on enteral feeding." (5) Hypertension Qualifiers: Hypertension type: essential hypertension Qualified Code(s): I10 - Essential (primary) hypertension Is this a current diagnosis for this admission?: Yes Plan: BP is adequate. On Lopressor. (6) Anxiety Is this a current diagnosis for this admission?: Yes Plan: On her home regimen of Xanax as needed (7) Morbid obesity with BMI of 45.0-49.9, adult Is this a current diagnosis for this admission?: Yes - Time Time Spent with patient: 35 or more minutes Medications reviewed and adjusted accordingly: Yes Anticipated Discharge Disposition: [facility]idential Facility Anticipated Discharge Timeframe: within 72 hours - Inpatient Certification Based on my medical assessment, after consideration of the patient's comorbidities, presenting symptoms, or acuity I expect that the services needed warrant INPATIENT care.: Yes I certify that my determination is in accordance with my understanding of Medicare's requirements for reasonable and necessary INPATIENT services [42 CFR 412.3e].: Yes Medical Necessity: Significant Comorbidiites Make Outpatient Treatment Too Risk y, Need Close Monitoring Due to Risk of Patient Decompensation, Need For Continuous Telemetry Monitoring, Need for Nebulizer Therapy and Monitoring of Response, Risk of Complication if Not Cared For in Hospital, Risk of Diagnosis Which Will Require Inpatient Eval/Care/Monitoring
[2020-09-16] MEDS: ATORVASTATIN CALCIUM 40 MG TABLET PO SCH (21:17)
[2020-09-16] MEDS: MELATONIN 5 MG TABLET PO SCH (21:19)
[2020-09-16] MEDS: ENOXAPARIN SODIUM INJ 150 MG/1 ML DISP.SYRIN SUBCUT SCH (21:42)
[2020-09-16] MEDS ORDERED: METHYLPREDNISOLONE INJ 40 MG/1 ML SDV IV SCH (22:00)
[2020-09-17] MEDS: METOPROLOL TARTRATE 50 MG TABLET PO SCH ×4 (05:20→23:06)
[2020-09-17] MEDS: ASCORBIC ACID 500 MG TABLET PO SCH ×4 (05:20→23:05)
[2020-09-17] MEDS: LEVOTHYROXINE SODIUM 0.088 MG TABLET PO SCH (05:20)
[2020-09-17 06:05] LABS: HEMATOCRIT 43.1 % (36.0-47.0); HEMOGLOBIN 14.6 g/dL (12.0-15.5); MEAN CORPUSCULAR HEMOGLOBIN 30.9 pg (27.0-33.4); MEAN CORPUSCULAR HGB CONC 33.8 g/dL (32.0-36.0); MEAN CORPUSCULAR VOLUME 91 fl (80-97); PLATELET COUNT 321 10^3/uL (150-450); RED BLOOD COUNT 4.72 10^6/uL (3.72-5.28); WHITE BLOOD COUNT 18.8 10^3/uL (4.0-10.5)
[2020-09-17 06:32] LABS: ANION GAP 10 (5-19); BLOOD UREA NITROGEN 32 mg/dL (7-20); C-REACTIVE PROTEIN 37.3 mg/L (<10.0); CALCIUM 8.6 mg/dL (8.4-10.2); CARBON DIOXIDE 27 mmol/L (22-30); CHLORIDE 100 mmol/L (98-107); GLUCOSE 199 mg/dL (75-110); POTASSIUM 4.9 mmol/L (3.6-5.0)
[2020-09-17 07:28] LABS: ABSOLUTE LYMPHOCYTES# (MANUAL) 0.8 10^3/uL (0.5-4.7); ABSOLUTE MONOCYTES # (MANUAL) 0.4 10^3/uL (0.1-1.4); BASOPHILS % (MANUAL) 0 % (0-2); EOSINOPHILS % (MANUAL) 0 % (0-6); LYMPHOCYTES % (MANUAL) 4 % (13-45); MONOCYTES % (MANUAL) 2 % (3-13); SEGMENTED NEUTROPHILS % (MAN) 94 % (42-78); TOTAL CELLS COUNTED 100
[2020-09-17 07:29] LABS: ANISOCYTOSIS SLIGHT; POIKILOCYTOSIS SLIGHT; TOXIC GRANULATION SLIGHT
[2020-09-17 07:30] LABS: OVALOCYTES SLIGHT; PLATELET COMMENT ADEQUATE; TEAR DROP CELLS SLIGHT
[2020-09-17] MEDS ORDERED: PROMETHAZINE HCL INJ 25 MG/1 ML VIAL IV PRN (07:30)
[2020-09-17] MEDS: IPRATROPIUM BROMIDE 0.02% NEB 0.5 MG/2.5 ML AMPUL NEB SCH ×3 (08:20→19:43)
[2020-09-17] MEDS: LEVALBUTEROL HCL NEB 0.63 MG/3 ML AMPUL NEB PRN (08:20)
[2020-09-17] MEDS: METHYLPREDNISOLONE INJ 125 MG/2 ML SDV IV SCH ×2 (09:27→21:12)
[2020-09-17] MEDS: DOCUSATE SODIUM 100 MG CAPSULE PO SCH (09:29)
[2020-09-17] MEDS: VITAMIN B COMPLEX TABLET PO SCH (09:29)
[2020-09-17] MEDS: GUAIFENESIN/D-METHORPHAN (200-20 MG) SYRUP 10 ML PO PRN (09:29)
[2020-09-17] MEDS: FAMOTIDINE 20 MG TABLET PO SCH ×2 (09:29→21:13)
[2020-09-17] MEDS: ASPIRIN 81 MG TABLET, ENT COATED PO SCH (09:29)
[2020-09-17] MEDS: ENOXAPARIN SODIUM INJ 150 MG/1 ML DISP.SYRIN SUBCUT SCH ×2 (09:29→21:11)
[2020-09-17] MEDS: GUAIFENESIN 600 MG TABLET.SA PO SCH ×2 (09:29→21:13)
[2020-09-17] MEDS: ZINC SULFATE 220 MG CAPSULE PO SCH (09:29)
[2020-09-17] MEDS: DIGOXIN 0.25 MG TABLET PO SCH (09:29)
[2020-09-17] MEDS: CHOLECALCIFEROL (D3) 1,000 UNIT (25 MCG) TABLET PO SCH (09:30)
[2020-09-17] MEDS: ALPRAZOLAM 0.25 MG TABLET PO PRN (09:30)
--- NOTE | 2020-09-17 17:20 | PDOC PROGRESS REPORT ---
Subjective Subjective:: Per Previous Physician: "SU BOND is a 70 year old female past medical history of hypertension and hypothyroidism presented to ED complaining of worsening shortness of breath. Patient was recently exposed to COVID-19, stating that a week after exposure she was feeling tired and went to get tested for COVID-19, on Thursday he was called and told that she had tested positive for COVID-19. Patient is stating that her fatigue and shortness of breath got worse and that is what brought her to the ED. Patient is stating that she did not have any fever, anosmia, dysgeusia, she did have diarrhea which has resolved. Denies any chest pain, fever, chills, nausea, vomiting, diarrhea, constipation or any urinary symptoms. ED she was noted to be hypoxic, chest x-ray was positive for diffuse bilateral alveolar interstitial infiltrates. Hospitalist consulted for admission." 09/15/2020 Patient is tachypneic today on 15 L on CPAP saturation at 92%. Her A. fib appears to be intermittently controlled although nursing states she required some as needed beta-migel for persistently elevated heart rate. Blood pre ssure stable and electrolytes are normal as of last lab check. Last magnesium level was 2.2 collected on 09/08. Patient's digoxin level was subtherapeutic when it was checked yesterday. Renal function is normal. I have increased her dose of digoxin hopefully maintain better control of atrial fibrillation. 09/16/2020 Patient seems be doing a bit worse now with rising oxygen requirements and less time able to maintain on high flow nasal cannula rather than CPAP. I have added multiple vitamin supplements and I have doubled the patient's methylprednisolone. Patient will be monitored very closely for any improvement or deterioration. 09/17/2020 Per nursing, patient looks to be a bit better today. She is tolerating a bit more time off of the NIV without respiratory distress while she is eating. She is still becoming extremely fatigued. She seems to have some mild clinical improvement on the higher dose steroids and her labs also reflect an improvement. Reason For Visit: COVID-19 Physical Exam Vital Signs: Temp Pulse Resp BP Pulse Ox 97.9 F 85 27 H 107/64 94 09/17/20 15:21 09/17/20 15:21 09/17/20 15:21 09/17/20 15:21 09/17/20 15:21 Intake & Output 09/16/20 09/17/20 09/18/20 06:59 06:59 06:59 Intake Total 420 671 120 Output Total 800 500 150 Balance -380 171 -30 Weight 125.8 kg 124 kg 124 kg Exam: General appearance: PRESENT: no acute distress, well-developed, well-nourished, morbidly obese with BMI 46.7, chronically ill-appearing elderly white female, states she is extremely tired Head exam: PRESENT: atraumatic, normocephalic Eye exam: PRESENT: conjunctiva pink. ABSENT: scleral icterus Mouth exam: PRESENT: moist Respiratory exam: PRESENT: Nearly clear, very scant crackles bilaterally ABSENT: rales, wheezes Cardiovascular exam: PRESENT: RRR. ABSENT: diastolic murmur, rubs, systolic murmur GI/Abdominal exam: PRESENT: normal bowel sounds, soft. ABSENT: distended, guarding, mass, organolmegaly, rebound, tenderness Neurological exam: PRESENT: alert, awake, oriented to person, oriented to place, oriented to time, oriented to situation Psychiatric exam: PRESENT: appropriate affect, normal mood Skin exam: PRESENT: dry, intact, warm Results Laboratory Results: 09/17/20 04:07 09/17/20 04:07 09/17/20 09/17/20 04:07 04:07 WBC 18.8 H RBC 4.72 Hgb 14.6 Hct 43.1 MCV 91 MCH 30.9 MCHC 33.8 RDW 14.0 Plt Count 321 Seg Neutrophils % Not Reportable Sodium 136.5 L Potassium 4.9 Chloride 100 Carbon Dioxide 27 Anion Gap 10 BUN 32 H Creatinine 0.64 Est GFR ( Amer) > 60 Glucose 199 H Calcium 8.6 Ferritin 1320.00 H C-Reactive Protein 37.3 H 08/31/20 09/11/20 09/11/20 12:15 05:09 05:09 Troponin I < 0.012 < 0.012 NT-Pro-B Natriuret Pep 1170 H Impressions: Chest X-Ray 09/14/20 08:00 IMPRESSION: Unchanged radiographic appearance of the chest. Assessment and Plan - Diagnosis (1) Acute respiratory failure due to COVID-19 Is this a current diagnosis for this admission?: Yes (2) Anxiety Is this a current diagnosis for this admission?: Yes (3) Dyslipidemia Is this a current diagnosis for this admission?: Yes (4) Hypertension Qualifiers: Hypertension type: essential hypertension Qualified Code(s): I10 - Essential (primary) hypertension Is this a current diagnosis for this admission?: Yes (5) Hypothyroidism Is this a current diagnosis for this admission?: Yes (6) Inadequate oral nutritional intake Is this a current diagnosis for this admission?: Yes (7) Morbid obesity Is this a current diagnosis for this admission?: Yes (8) Morbid obesity with BMI of 45.0-49.9, adult Is this a current diagnosis for this admission?: Yes (9) Paroxysmal atrial fibrillation with rapid ventricular response Is this a current diagnosis for this admission?: Yes (10) Pneumonia due to COVID-19 virus Is this a current diagnosis for this admission?: Yes - Plan Summary Summary: (1) Pneumonia due to COVID-19 virus Per Previous Physician: "s/p 5 days of azithromycin and remdesivir and 10 days of dexamethasone Ceftriaxone discontinued after 4 days. s/p convalescent plasma Mostly dealing with the post-pneumonia sequelae and lung damage at this point PT/OT as tolerated" -Status post ivermectin Increased to methylprednisolone 80 mg every 12 hours and started multiple new vitamin supplements starting on 09/16, mild improvement afterwards, inflammatory labs improved (2) Acute respiratory failure due to COVID-19 Per Previous Physician: "Unfortunately there has been no improvement in her oxygenation over the past few days. She still remains on CPAP 14/100% with SPO2 in the low 90s to high 8 0s." -Maintained on CPAP plus supplemental oxygen Extremely slow to recover (3) Paroxysmal atrial fibrillation with rapid ventricular response Is this a current diagnosis for this admission?: Yes Plan: Per Previous Physician: "Likely being driven by current illness. Seems to be new onset of A. fib. CHADSVASC of 3 --currently on Xarelto TTE suboptimal shows normal ejection fraction. Valves cannot be adequately assessed due to poor windows. Lopressor 50 mg every 6 hours Continue digoxin 0.125 mg daily." -Digoxin level subtherapeutic, increased digoxin dose Stopped rivaroxaban and started treatment dose Lovenox for clinical worsening (4) Inadequate oral nutritional intake Is this a current diagnosis for this admission?: Yes Plan: Per Previous Physician: "Patient has not been able to have adequate nutrition due to her CPAP dependency. If she is not able to get on a high flow nasal cannula today, we will place a Dobbhoff and start her on enteral feeding." (5) Hypertension Qualifiers: Hypertension type: essential hypertension Qualified Code(s): I10 - Essential (primary) hypertension Is this a current diagnosis for this admission?: Yes Plan: BP is adequate. On Lopressor. (6) Anxiety Is this a current diagnosis for this admission?: Yes Plan: On her home regimen of Xanax as needed (7) Morbid obesity with BMI of 45.0-49.9, adult Is this a current diagnosis for this admission?: Yes - Time Time Spent with patient: 35 or more minutes Medications reviewed and adjusted accordingly: Yes [facility] Anticipated Discharge Timeframe: within 72 hours - Inpatient Certification Based on my medical assessment, after consideration of the patient's comorbidities, presenting symptoms, or acuity I expect that the services needed warrant INPATIENT care.: Yes I certify that my determination is in accordance with my understanding of Medicare's requirements for reasonable and necessary INPATIENT services [42 CFR 412.3e].: Yes Medical Necessity: Significant Comorbidiites Make Outpatient Treatment Too Risky, Need Close Monitoring Due to Risk of Patient Decompensation, Need For Continuous Telemetry Monitoring, Need for Nebulizer Therapy and Monitoring of Response, Risk of Complication if Not Cared For in Hospital, Risk of Diagnosis Which Will Require Inpatient Eval/Care/Monitoring
[2020-09-17] MEDS: MELATONIN 5 MG TABLET PO SCH (21:13)
[2020-09-17] MEDS: ATORVASTATIN CALCIUM 40 MG TABLET PO SCH (21:13)
[2020-09-18] MEDS: GUAIFENESIN/D-METHORPHAN (200-20 MG) SYRUP 10 ML PO PRN ×2 (03:31→12:52)
[2020-09-18] MEDS: METOPROLOL TARTRATE 50 MG TABLET PO SCH ×4 (05:33→23:01)
[2020-09-18] MEDS: LEVOTHYROXINE SODIUM 0.088 MG TABLET PO SCH (05:33)
[2020-09-18] MEDS: ASCORBIC ACID 500 MG TABLET PO SCH ×4 (05:33→23:01)
[2020-09-18 06:24] LABS: C-REACTIVE PROTEIN 20.9 mg/L (<10.0); DIGOXIN 0.61 ng/mL (0.8-2.0)
[2020-09-18] MEDS: IPRATROPIUM BROMIDE 0.02% NEB 0.5 MG/2.5 ML AMPUL NEB SCH ×3 (07:41→19:53)
[2020-09-18] MEDS: DIGOXIN 0.25 MG TABLET PO SCH (10:43)
[2020-09-18] MEDS: ASPIRIN 81 MG TABLET, ENT COATED PO SCH (10:44)
[2020-09-18] MEDS: FAMOTIDINE 20 MG TABLET PO SCH ×2 (10:44→21:03)
[2020-09-18] MEDS: VITAMIN B COMPLEX TABLET PO SCH (10:44)
[2020-09-18] MEDS: DOCUSATE SODIUM 100 MG CAPSULE PO SCH (10:44)
[2020-09-18] MEDS: ZINC SULFATE 220 MG CAPSULE PO SCH (10:44)
[2020-09-18] MEDS: GUAIFENESIN 600 MG TABLET.SA PO SCH ×2 (10:44→21:03)
[2020-09-18] MEDS: ENOXAPARIN SODIUM INJ 150 MG/1 ML DISP.SYRIN SUBCUT SCH ×2 (10:45→21:04)
[2020-09-18] MEDS: CHOLECALCIFEROL (D3) 1,000 UNIT (25 MCG) TABLET PO SCH (10:45)
[2020-09-18] MEDS: METHYLPREDNISOLONE INJ 125 MG/2 ML SDV IV SCH ×2 (10:45→21:04)
[2020-09-18] MEDS: ALPRAZOLAM 0.25 MG TABLET PO PRN ×2 (12:49→21:06)
--- NOTE | 2020-09-18 16:32 | PDOC PROGRESS REPORT ---
Subjective Subjective:: Per Previous Physician: "SU BOND is a 70 year old female past medical history of hypertension and hypothyroidism presented to ED complaining of worsening shortness of breath. Patient was recently exposed to COVID-19, stating that a week after exposure she was feeling tired and went to get tested for COVID-19, on Thursday he was called and told that she had tested positive for COVID-19. Patient is stating that her fatigue and shortness of breath got worse and that is what brought her to the ED. Patient is stating that she did not have any fever, anosmia, dysgeusia, she did have diarrhea which has resolved. Denies any chest pain, fever, chills, nausea, vomiting, diarrhea, constipation or any urinary symptoms. ED she was noted to be hypoxic, chest x-ray was positive for diffuse bilateral alveolar interstitial infiltrates. Hospitalist consulted for admission." 09/15/2020 Patient is tachypneic today on 15 L on CPAP saturation at 92%. Her A. fib appears to be intermittently controlled although nursing states she required some as needed beta-migel for persistently elevated heart rate. Blood pre ssure stable and electrolytes are normal as of last lab check. Last magnesium level was 2.2 collected on 09/08. Patient's digoxin level was subtherapeutic when it was checked yesterday. Renal function is normal. I have increased her dose of digoxin hopefully maintain better control of atrial fibrillation. 09/16/2020 Patient seems be doing a bit worse now with rising oxygen requirements and less time able to maintain on high flow nasal cannula rather than CPAP. I have added multiple vitamin supplements and I have doubled the patient's methylprednisolone. Patient will be monitored very closely for any improvement or deterioration. 09/17/2020 Per nursing, patient looks to be a bit better today. She is tolerating a bit more time off of the NIV without respiratory distress while she is eating. She is still becoming extremely fatigued. She seems to have some mild clinical improvement on the higher dose steroids and her labs also reflect an improvement. 09/18/2020 Patient appears to have hopefully leveled off on her oxygen requirements and we can start weaning her off of the BiPAP and supplemental oxygen. This will be a very long and tedious process. Once we have successfully weaned her off of some pressure and oxygen, I will start weaning her steroids as well. For now we'll keep her at 80 mg Solu-Medrol twice daily. She has no new complaints today. She needs to be mobilized as much as safely tolerable Reason For Visit: COVID-19 Physical Exam Vital Signs: Temp Pulse Resp BP Pulse Ox 97.7 F 99 30 H 99/55 L 95 09/18/20 12:06 09/18/20 14:07 09/18/20 14:07 09/18/20 12:06 09/18/20 14:07 Intake & Output 09/17/20 09/18/20 09/19/20 06:59 06:59 06:59 Intake Total 671 360 120 Output Total 500 650 Balance 171 -290 120 Weight 124 kg 124.3 kg Exam: General appearance: PRESENT: no acute distress, well-developed, well-nourished, morbidly obese with BMI 46.7, chronically ill-appearing elderly white female, states she is still short of breath but does not feel worse today Head exam: PRESENT: atraumatic, normocephalic Eye exam: PRESENT: conjunctiva pink. ABSENT: scleral icterus Mouth exam: PRESENT: moist Respiratory exam: PRESENT: Nearly clear, very scant crackles bilaterally ABSENT: rales, wheezes Cardiovascular exam: PRESENT: RRR. ABSENT: diastolic murmur, rubs, systolic murmur GI/Abdominal exam: PRESENT: normal bowel sounds, soft. ABSENT: distended, guarding, mass, organolmegaly, rebound, tenderness Neurological exam: PRESENT: alert, awake, oriented to person, oriented to place, oriented to time, oriented to situation Psychiatric exam: PRESENT: appropriate affect, normal mood Skin exam: PRESENT: dry, intact, warm Results Laboratory Results: 09/17/20 04:07 09/17/20 04:07 09/18/20 05:00 Ferritin 1490.00 H C-Reactive Protein 20.9 H 08/31/20 09/11/20 09/11/20 12:15 05:09 05:09 Troponin I < 0.012 < 0.012 NT-Pro-B Natriuret Pep 1170 H Impressions: Chest X-Ray 09/14/20 08:00 IMPRESSION: Unchanged radiographic appearance of the chest. Assessment and Plan - Diagnosis (1) Acute respiratory failure due to COVID-19 Is this a current diagnosis for this admission?: Yes (2) Anxiety Is this a current diagnosis for this admission?: Yes (3) Dyslipidemia Is this a current diagnosis for this admission?: Yes (4) Hypertension Qualifiers: Hypertension type: essential hypertension Qualified Code(s): I10 - Essential (primary) hypertension Is this a current diagnosis for this admission?: Yes (5) Hypothyroidism Is this a current diagnosis for this admission?: Yes (6) Inadequate oral nutritional intake Is this a current diagnosis for this admission?: Yes (7) Morbid obesity Is this a current diagnosis for this admission?: Yes (8) Morbid obesity with BMI of 45.0-49.9, adult Is this a current diagnosis for this admission?: Yes (9) Paroxysmal atrial fibrillation with rapid ventricular response Is this a current diagnosis for this admission?: Yes (10) Pneumonia due to COVID-19 virus Is this a current diagnosis for this admission?: Yes - Plan Summary Summary: (1) Pneumonia due to COVID-19 virus Per Previous Physician: "s/p 5 days of azithromycin and remdesivir and 10 days of dexamethasone Ceftriaxone discontinued after 4 days. s/p convalescent plasma Mostly dealing with the post-pneumonia sequelae and lung damage at this point PT/OT as tolerated" -Status post ivermectin Increased to methylprednisolone 80 mg every 12 hours and started multiple new vitamin supplements starting on 09/16, mild improvement afterwards, inflammatory labs improved Gradually wean pressure support and supplemental oxygen (2) Acute respiratory failure due to COVID-19 Per Previous Physician: "Unfortunately there has been no improvement in her oxygenation over the past few days. She still remains on CPAP 14/100% with SPO2 in the low 90s to high 80s." -Maintained on CPAP plus supplemental oxygen Extremely slow to recover (3) Paroxysmal atrial fibrillation with rapid ventricular response Is this a current diagnosis for this admission?: Yes Plan: Per Previous Physician: "Likely being driven by current illness. Seems to be new onset of A. fib. CHADSVASC of 3 --currently on Xarelto TTE suboptimal shows normal ejection fraction. Valves cannot be adequately assessed due to poor windows. Lopressor 50 mg every 6 hours Continue digoxin 0.125 mg daily." -Digoxin level subtherapeutic, increased digoxin dose Stopped rivaroxaban and started treatment dose Lovenox for clinical worsening (4) Inadequate oral nutritional intake Is this a current diagnosis for this admission?: Yes Plan: Per Previous Physician: "Patient has not been able to have adequate nutrition due to her CPAP dependency. If she is not able to get on a high flow nasal cannula today, we will place a Dobbhoff and start her on enteral feeding." (5) Hypertension Qualifiers: Hypertension type: essential hypertension Qualified Code(s): I10 - Essential (primary) hypertension Is this a current diagnosis for this admission?: Yes Plan: BP is adequate. On Lopressor. (6) Anxiety Is this a current diagnosis for this admission?: Yes Plan: On her home regimen of Xanax as needed (7) Morbid obesity with BMI of 45.0-49.9, adult Is this a current diagnosis for this admission?: Yes - Time Time Spent with patient: 35 or more minutes Medications reviewed and adjusted accordingly: Yes Anticipated Discharge Disposition: Home with Home Health Anticipated Discharge Timeframe: within 72 hours - Inpatient Certification Based on my medical assessment, after consideration of the patient's comorbidities, presenting symptoms, or acuity I expect that the services needed warrant INPATIENT care.: Yes I certify that my determination is in accordance with my understanding of Medicare's requirements for reasonable and necessary INPATIENT services [42 CFR 412.3e].: Yes Medical Necessity: Significant Comorbidiites Make Outpatient Treatment Too Risky, Need Close Monitoring Due to Risk of Patient Decompensation, Need For Continuous Telemetry Monitoring, Need for Nebulizer Therapy and Monitoring of Response, Risk of Complication if Not Cared For in Hospital, Risk of Diagnosis Which Will Require Inpatient Eval/Care/Monitoring
[2020-09-18] MEDS: METOPROLOL TARTRATE PF/INJ 5 MG/5 ML SDV IV PRN (17:50)
[2020-09-18] MEDS: MELATONIN 5 MG TABLET PO SCH (21:03)
[2020-09-18] MEDS: ATORVASTATIN CALCIUM 40 MG TABLET PO SCH (21:05)
[2020-09-19] MEDS: ASCORBIC ACID 500 MG TABLET PO SCH ×4 (05:29→23:23)
[2020-09-19] MEDS: ALPRAZOLAM 0.25 MG TABLET PO PRN ×3 (05:29→21:57)
[2020-09-19] MEDS: METOPROLOL TARTRATE 50 MG TABLET PO SCH ×4 (05:29→23:23)
[2020-09-19] MEDS: LEVOTHYROXINE SODIUM 0.088 MG TABLET PO SCH (05:29)
[2020-09-19 06:06] LABS: HEMATOCRIT 44.6 % (36.0-47.0); HEMOGLOBIN 15.2 g/dL (12.0-15.5); MEAN CORPUSCULAR HEMOGLOBIN 30.6 pg (27.0-33.4); MEAN CORPUSCULAR HGB CONC 34.1 g/dL (32.0-36.0); MEAN CORPUSCULAR VOLUME 90 fl (80-97); RED BLOOD COUNT 4.96 10^6/uL (3.72-5.28); RED CELL DISTRIBUTION WIDTH 14.1 % (11.5-14.0); WHITE BLOOD COUNT 20.1 10^3/uL (4.0-10.5)
[2020-09-19 06:31] LABS: ANION GAP 8 (5-19); BLOOD UREA NITROGEN 40 mg/dL (7-20); C-REACTIVE PROTEIN 13.7 mg/L (<10.0); CALCIUM 8.9 mg/dL (8.4-10.2); CARBON DIOXIDE 26 mmol/L (22-30); CHLORIDE 101 mmol/L (98-107); GLUCOSE 131 mg/dL (75-110); POTASSIUM 4.9 mmol/L (3.6-5.0)
[2020-09-19 07:05] LABS: APPEARANCE,URINE SLIGHTLY-CLOUDY; BILIRUBIN,URINE NEGATIVE (NEGATIVE); CALCIUM OXALATE CRYSTALS,URINE RARE /HPF; COLOR,URINE AMBER; GLUCOSE, URINE NEGATIVE (NEGATIVE); KETONES,URINE NEGATIVE (NEGATIVE); LEUKOCYTE ESTERASE,URINE NEGATIVE (NEGATIVE); NITRITE,URINE NEGATIVE (NEGATIVE); PROTEIN,URINE NEGATIVE (NEGATIVE); URINE SPECIFIC GRAVITY 1.038
[2020-09-19 07:08] LABS: ABSOLUTE LYMPHOCYTES# (MANUAL) 0.4 10^3/uL (0.5-4.7); ABSOLUTE MONOCYTES # (MANUAL) 0.4 10^3/uL (0.1-1.4); BASOPHILS % (MANUAL) 0 % (0-2); EOSINOPHILS % (MANUAL) 0 % (0-6); LYMPHOCYTES % (MANUAL) 2 % (13-45); MONOCYTES % (MANUAL) 2 % (3-13); SEGMENTED NEUTROPHILS % (MAN) 96 % (42-78); TOTAL CELLS COUNTED 100
[2020-09-19 07:10] LABS: PLATELET CLUMPS PRESENT; PLATELET COMMENT ADEQUATE; PLATELET COUNT 296 10^3/uL (150-450)
[2020-09-19] MEDS: IPRATROPIUM BROMIDE 0.02% NEB 0.5 MG/2.5 ML AMPUL NEB SCH ×3 (09:11→20:56)
[2020-09-19] MEDS: METOPROLOL TARTRATE PF/INJ 5 MG/5 ML SDV IV PRN ×3 (10:56→18:46)
[2020-09-19] MEDS: METHYLPREDNISOLONE INJ 125 MG/2 ML SDV IV SCH ×2 (10:56→21:58)
[2020-09-19] MEDS: GUAIFENESIN 600 MG TABLET.SA PO SCH ×2 (10:57→21:58)
[2020-09-19] MEDS: DOCUSATE SODIUM 100 MG CAPSULE PO SCH (10:57)
[2020-09-19] MEDS: ZINC SULFATE 220 MG CAPSULE PO SCH (10:57)
[2020-09-19] MEDS: CHOLECALCIFEROL (D3) 1,000 UNIT (25 MCG) TABLET PO SCH (10:57)
[2020-09-19] MEDS: VITAMIN B COMPLEX TABLET PO SCH (10:57)
[2020-09-19] MEDS: ASPIRIN 81 MG TABLET, ENT COATED PO SCH (10:57)
[2020-09-19] MEDS: DIGOXIN 0.25 MG TABLET PO SCH (10:57)
[2020-09-19] MEDS: FAMOTIDINE 20 MG TABLET PO SCH ×2 (10:57→21:58)
[2020-09-19] MEDS: ENOXAPARIN SODIUM INJ 150 MG/1 ML DISP.SYRIN SUBCUT SCH ×2 (10:58→22:04)
--- NOTE | 2020-09-19 17:07 | PDOC PROGRESS REPORT ---
Subjective Subjective:: Per Previous Physician: "SU BOND is a 70 year old female past medical history of hypertension and hypothyroidism presented to ED complaining of worsening shortness of breath. Patient was recently exposed to COVID-19, stating that a week after exposure she was feeling tired and went to get tested for COVID-19, on Thursday he was called and told that she had tested positive for COVID-19. Patient is stating that her fatigue and shortness of breath got worse and that is what brought her to the ED. Patient is stating that she did not have any fever, anosmia, dysgeusia, she did have diarrhea which has resolved. Denies any chest pain, fever, chills, nausea, vomiting, diarrhea, constipation or any urinary symptoms. ED she was noted to be hypoxic, chest x-ray was positive for diffuse bilateral alveolar interstitial infiltrates. Hospitalist consulted for admission." 09/15/2020 Patient is tachypneic today on 15 L on CPAP saturation at 92%. Her A. fib appears to be intermittently controlled although nursing states she required some as needed beta-migel for persistently elevated heart rate. Blood pre ssure stable and electrolytes are normal as of last lab check. Last magnesium level was 2.2 collected on 09/08. Patient's digoxin level was subtherapeutic when it was checked yesterday. Renal function is normal. I have increased her dose of digoxin hopefully maintain better control of atrial fibrillation. 09/16/2020 Patient seems be doing a bit worse now with rising oxygen requirements and less time able to maintain on high flow nasal cannula rather than CPAP. I have added multiple vitamin supplements and I have doubled the patient's methylprednisolone. Patient will be monitored very closely for any improvement or deterioration. 09/17/2020 Per nursing, patient looks to be a bit better today. She is tolerating a bit more time off of the NIV without respiratory distress while she is eating. She is still becoming extremely fatigued. She seems to have some mild clinical improvement on the higher dose steroids and her labs also reflect an improvement. 09/18/2020 Patient appears to have hopefully leveled off on her oxygen requirements and we can start weaning her off of the BiPAP and supplemental oxygen. This will be a very long and tedious process. Once we have successfully weaned her off of some pressure and oxygen, I will start weaning her steroids as well. For now we'll keep her at 80 mg Solu-Medrol twice daily. She has no new complaints today. She needs to be mobilized as much as safely tolerable 09/19/2020 We are continuing to attempt to wean the patient's oxygen and pressure support however it is rather difficult. Patient seems to get anxious whenever she is taken off BiPAP or if she is moved from the bed. This is likely a strong contributing factor to her intermittent dyspnea. Her inflammatory markers are significantly improved and continued to improve. I spoke at length with the patient about the need for her to get out of bed and work with physical therapy. She nodded her head in agreement but later refused when the physical therapist came in approximately 5 minutes later. I believe her immobility is severely hindering her capacity for improvement. Reason For Visit: COVID-19 Physical Exam Vital Signs: Temp Pulse Resp BP Pulse Ox 98.3 F 149 H 34 H 94/58 L 93 09/19/20 11:32 09/19/20 14:33 09/19/20 14:33 09/19/20 11:32 09/19/20 14:33 Intake & Output 09/18/20 09/19/20 09/20/20 06:59 06:59 06:59 Intake Total 360 170 Output Total 650 200 Balance -290 -30 Weight 124.3 kg 124 kg Exam: General appearance: PRESENT: no acute distress, well-developed, well-nourished, morbidly obese with BMI 46.7, chronically ill-appearing elderly white female, states she will try to work with physical therapy today and get up in a chair Head exam: PRESENT: atraumatic, normocephalic Eye exam: PRESENT: conjunctiva pink. ABSENT: scleral icterus Mouth exam: PRESENT: moist Respiratory exam: PRESENT: Nearly clear, very scant crackles bilaterally ABSENT: rales, wheezes Cardiovascular exam: PRESENT: RRR. ABSENT: diastolic murmur, rubs, systolic murmur GI/Abdominal exam: PRESENT: normal bowel sounds, soft. ABSENT: distended, guarding, mass, organolmegaly, rebound, tenderness Neurological exam: PRESENT: alert, awake, oriented to person, oriented to place, oriented to time, oriented to situation Psychiatric exam: PRESENT: appropriate affect, normal mood Skin exam: PRESENT: dry, intact, warm Results Laboratory Results: 09/19/20 05:03 09/19/20 05:03 09/19/20 09/19/20 09/19/20 05:03 05:03 06:20 WBC 20.1 H RBC 4.96 Hgb 15.2 Hct 44.6 MCV 90 MCH 30.6 MCHC 34.1 RDW 14.1 H Plt Count 296 Seg Neutrophils % Not Reportable Sodium 134.8 L Potassium 4.9 Chloride 101 Carbon Dioxide 26 Anion Gap 8 BUN 40 H Creatinine 0.51 L Est GFR ( Amer) > 60 Glucose 131 H Calcium 8.9 Ferritin 1510.00 H C-Reactive Protein 13.7 H Urine Color MEGHAN Urine Appearance SLIGHTLY-CLOUDY Urine pH 5.0 Ur Specific [place] 1.038 Urine Protein NEGATIVE Urine Glucose (UA) NEGATIVE Urine Ketones NEGATIVE Urine Blood NEGATIVE Urine Nitrite NEGATIVE Ur Leukocyte Esterase NEGATIVE Urine WBC (Auto) 2 Urine RBC (Auto) 2 08/31/20 09/11/20 09/11/20 12:15 05:09 05:09 Troponin I < 0.012 < 0.012 NT-Pro-B Natriuret Pep 1170 H 09/19/20 15:04 Troponin I 0.021 NT-Pro-B Natriuret Pep Impressions: Chest X-Ray 09/14/20 08:00 IMPRESSION: Unchanged radiographic appearance of the chest. Assessment and Plan - Diagnosis (1) Acute respiratory failure due to COVID-19 Is this a current diagnosis for this admission?: Yes (2) Anxiety Is this a current diagnosis for this admission?: Yes (3) Dyslipidemia Is this a current diagnosis for this admission?: Yes (4) Hypertension Qualifiers: Hypertension type: essential hypertension Qualified Code(s): I10 - Essential (primary) hypertension Is this a current diagnosis for this admission?: Yes (5) Hypothyroidism Is this a current diagnosis for this admission?: Yes (6) Inadequate oral nutritional intake Is this a current diagnosis for this admission?: Yes (7) Morbid obesity Is this a current diagnosis for this admission?: Yes (8) Morbid obesity with BMI of 45.0-49.9, adult Is this a current diagnosis for this admission?: Yes (9) Paroxysmal atrial fibrillation with rapid ventricular response Is this a current diagnosis for this admission?: Yes (10) Pneumonia due to COVID-19 virus Is this a current diagnosis for this admission?: Yes - Plan Summary Summary: (1) Pneumonia due to COVID-19 virus Per Previous Physician: "s/p 5 days of azithromycin and remdesivir and 10 days of dexamethasone Ceftriaxone discontinued after 4 days. s/p convalescent plasma Mostly dealing with the post-pneumonia sequelae and lung damage at this point PT/OT as tolerated" -Status post ivermectin Increased to methylprednisolone 80 mg every 12 hours and started multiple new vitamin supplements starting on 09/16, mild improvement afterwards, inflammatory labs improved Gradually wean pressure support and supplemental oxygen Improvement substantially impaired by patient's inability or unwillingness to mobilize, Discussed with patient and PT though she continues to refuse therapy (2) Acute respiratory failure due to COVID-19 Per Previous Physician: "Unfortunately there has been no improvement in her oxygenation over the past few days. She still remains on CPAP 14/100% with SPO2 in the low 90s to high 80s." -Maintained on CPAP plus supplemental oxygen Extremely slow to recover (3) Paroxysmal atrial fibrillation with rapid ventricular response Is this a current diagnosis for this admission?: Yes Plan: Per Previous Physician: "Likely being driven by current illness. Seems to be new onset of A. fib. CHADSVASC of 3 --currently on Xarelto TTE suboptimal shows normal ejection fraction. Valves cannot be adequately assessed due to poor windows. Lopressor 50 mg every 6 hours Continue digoxin 0.125 mg daily." -Digoxin level subtherapeutic, increased digoxin dose Stopped rivaroxaban and started treatment dose Lovenox for clinical worsening (4) Inadequate oral nutritional intake Is this a current diagnosis for this admission?: Yes Plan: Per Previous Physician: "Patient has not been able to have adequate nutrition due to her CPAP dependency. If she is not able to get on a high flow nasal cannula today, we will place a Dobbhoff and start her on enteral feeding." (5) Hypertension Qualifiers: Hypertension type: essential hypertension Qualified Code(s): I10 - Essential (primary) hypertension Is this a current diagnosis for this admission?: Yes Plan: BP is adequate. On Lopressor. (6) Anxiety Is this a current diagnosis for this admission?: Yes Plan: On her home regimen of Xanax as needed (7) Morbid obesity with BMI of 45.0-49.9, adult Is this a current diagnosis for this admission?: Yes - Time Time Spent with patient: 35 or more minutes Medications reviewed and adjusted accordingly: Yes Anticipated Discharge Disposition: Longterm Facility Anticipated Discharge Timeframe: within 72 hours - Inpatient Certification Based on my medical assessment, after consideration of the patient's comorbidities, presenting symptoms, or acuity I expect that the services needed warrant INPATIENT care.: Yes I certify that my determination is in accordance with my understanding of Medicare's requirements for reasonable and necessary INPATIENT services [42 CFR 412.3e].: Yes Medical Necessity: Significant Comorbidiites Make Outpatient Treatment Too Risky, Need Close Monitoring Due to Risk of Patient Decompensation, Need For Continuous Telemetry Monitoring, Risk of Complication if Not Cared For in Hospital, Risk of Diagnosis Which Will Require Inpatient Eval/Care/Monitoring
[2020-09-19 20:34] LABS: APPEARANCE,URINE CLOUDY; BILIRUBIN,URINE NEGATIVE (NEGATIVE); CALCIUM OXALATE CRYSTALS,URINE RARE /HPF; COLOR,URINE AMBER; GLUCOSE, URINE NEGATIVE (NEGATIVE); KETONES,URINE NEGATIVE (NEGATIVE); LEUKOCYTE ESTERASE,URINE TRACE (NEGATIVE); NITRITE,URINE NEGATIVE (NEGATIVE); PROTEIN,URINE 100 mg/dL (NEGATIVE); URINE SPECIFIC GRAVITY 1.035
[2020-09-19] MEDS: ATORVASTATIN CALCIUM 40 MG TABLET PO SCH (21:57)
[2020-09-19] MEDS: MELATONIN 5 MG TABLET PO SCH (21:57)
--- NOTE | 2020-09-19 21:59 | EKG REPORT ---
SEVERITY:- ABNORMAL ECG - ATRIAL FIBRILLATION WITH RAPID V-RATE REPOLARIZATION ABNORMALITY, PROB RATE RELATED : Confirmed by: Sheri Guidry MD 19-Sep-2020 21:58:32
[2020-09-20] MEDS: METOPROLOL TARTRATE 50 MG TABLET PO SCH ×3 (05:10→18:16)
[2020-09-20] MEDS: LEVOTHYROXINE SODIUM 0.088 MG TABLET PO SCH (05:11)
[2020-09-20] MEDS: ASCORBIC ACID 500 MG TABLET PO SCH ×2 (05:11→11:40)
[2020-09-20 06:29] LABS: C-REACTIVE PROTEIN 18.5 mg/L (<10.0)
[2020-09-20] MEDS: ALPRAZOLAM 0.25 MG TABLET PO PRN (07:50)
[2020-09-20] MEDS: IPRATROPIUM BROMIDE 0.02% NEB 0.5 MG/2.5 ML AMPUL NEB SCH ×3 (08:52→20:33)
[2020-09-20] MEDS: ASPIRIN 81 MG TABLET, ENT COATED PO SCH (11:07)
[2020-09-20] MEDS: VITAMIN B COMPLEX TABLET PO SCH (11:07)
[2020-09-20] MEDS: ZINC SULFATE 220 MG CAPSULE PO SCH (11:07)
[2020-09-20] MEDS: GUAIFENESIN 600 MG TABLET.SA PO SCH ×2 (11:07→21:41)
[2020-09-20] MEDS: DOCUSATE SODIUM 100 MG CAPSULE PO SCH (11:07)
[2020-09-20] MEDS: CHOLECALCIFEROL (D3) 1,000 UNIT (25 MCG) TABLET PO SCH (11:07)
[2020-09-20] MEDS: DIGOXIN 0.25 MG TABLET PO SCH (11:07)
[2020-09-20] MEDS: METOPROLOL TARTRATE PF/INJ 5 MG/5 ML SDV IV PRN (11:07)
[2020-09-20] MEDS: METHYLPREDNISOLONE INJ 125 MG/2 ML SDV IV SCH ×2 (11:08→21:43)
[2020-09-20] MEDS: FAMOTIDINE 20 MG TABLET PO SCH ×2 (11:08→21:41)
[2020-09-20] MEDS: OMEGA-3 ACID ETHYL ESTERS 1 GM CAPSULE PO SCH (11:12)
[2020-09-20] MEDS: ENOXAPARIN SODIUM INJ 150 MG/1 ML DISP.SYRIN SUBCUT SCH ×2 (11:38→21:42)
[2020-09-20] MEDS: THIAMINE HCL 200 MG in NORMAL SALINE 50 ML IV SCH (13:27)
--- NOTE | 2020-09-20 17:23 | PDOC PROGRESS REPORT ---
Subjective Subjective:: Per Previous Physician: "SU BOND is a 70 year old female past medical history of hypertension and hypothyroidism presented to ED complaining of worsening shortness of breath. Patient was recently exposed to COVID-19, stating that a week after exposure she was feeling tired and went to get tested for COVID-19, on Thursday he was called and told that she had tested positive for COVID-19. Patient is stating that her fatigue and shortness of breath got worse and that is what brought her to the ED. Patient is stating that she did not have any fever, anosmia, dysgeusia, she did have diarrhea which has resolved. Denies any chest pain, fever, chills, nausea, vomiting, diarrhea, constipation or any urinary symptoms. ED she was noted to be hypoxic, chest x-ray was positive for diffuse bilateral alveolar interstitial infiltrates. Hospitalist consulted for admission." 09/15/2020 Patient is tachypneic today on 15 L on CPAP saturation at 92%. Her A. fib appears to be intermittently controlled although nursing states she required some as needed beta-migel for persistently elevated heart rate. Blood pre ssure stable and electrolytes are normal as of last lab check. Last magnesium level was 2.2 collected on 09/08. Patient's digoxin level was subtherapeutic when it was checked yesterday. Renal function is normal. I have increased her dose of digoxin hopefully maintain better control of atrial fibrillation. 09/16/2020 Patient seems be doing a bit worse now with rising oxygen requirements and less time able to maintain on high flow nasal cannula rather than CPAP. I have added multiple vitamin supplements and I have doubled the patient's methylprednisolone. Patient will be monitored very closely for any improvement or deterioration. 09/17/2020 Per nursing, patient looks to be a bit better today. She is tolerating a bit more time off of the NIV without respiratory distress while she is eating. She is still becoming extremely fatigued. She seems to have some mild clinical improvement on the higher dose steroids and her labs also reflect an improvement. 09/18/2020 Patient appears to have hopefully leveled off on her oxygen requirements and we can start weaning her off of the BiPAP and supplemental oxygen. This will be a very long and tedious process. Once we have successfully weaned her off of some pressure and oxygen, I will start weaning her steroids as well. For now we'll keep her at 80 mg Solu-Medrol twice daily. She has no new complaints today. She needs to be mobilized as much as safely tolerable 09/19/2020 We are continuing to attempt to wean the patient's oxygen and pressure support however it is rather difficult. Patient seems to get anxious whenever she is taken off BiPAP or if she is moved from the bed. This is likely a strong contributing factor to her intermittent dyspnea. Her inflammatory markers are significantly improved and continued to improve. I spoke at length with the patient about the need for her to get out of bed and work with physical therapy. She nodded her head in agreement but later refused when the physical therapist came in approximately 5 minutes later. I believe her immobility is severely hindering her capacity for improvement. 09/20/2020 Trying each day to motivate the patient to be more active and get up to her chair during the day. She stated she does not wish to get up to the chair. She refused PT yesterday. I am concerned if she remains immobilized, she will clinically worsen. I have added multiple salvage treatments to her regimen today including lovaza and IV vitamin C to improve her inflammatory lung disease. Her inflammatory markers are gradually rising. Troponin yesterday was within normal limits. She is maintained on 50% FiO2 on high flow nasal cannula with CPAP being used frequently. I discussed with nursing that we need to continue weaning oxygen and pressure requirements. This will be done as patient allows however. Reason For Visit: COVID-19 Physical Exam Vital Signs: Temp Pulse Resp BP Pulse Ox 97.4 F 105 H 27 H 90/51 L 95 09/20/20 15:55 09/20/20 15:55 09/20/20 15:55 09/20/20 15:55 09/20/20 15:55 Intake & Output 09/19/20 09/20/20 09/21/20 06:59 06:59 06:59 Intake Total 170 500 160 Output Total 200 875 250 Balance -30 -375 -90 Weight 124 kg 123.5 kg Exam: General appearance: PRESENT: no acute distress, well-developed, well-nourished, morbidly obese with BMI 46.7, chronically ill-appearing elderly white female, states she does not want to get in the chair today Head exam: PRESENT: atraumatic, normocephalic Eye exam: PRESENT: conjunctiva pink. ABSENT: scleral icterus Mouth exam: PRESENT: moist Respiratory exam: PRESENT: Nearly clear, very scant crackles bilaterally ABSENT: rales, wheezes Cardiovascular exam: PRESENT: RRR. ABSENT: diastolic murmur, rubs, systolic murmur GI/Abdominal exam: PRESENT: normal bowel sounds, soft. ABSENT: distended, guarding, mass, organolmegaly, rebound, tenderness Neurological exam: PRESENT: alert, awake, oriented to person, oriented to place, oriented to time, oriented to situation Psychiatric exam: PRESENT: appropriate affect, normal mood Skin exam: PRESENT: dry, intact, warm Results Laboratory Results: 09/19/20 05:03 09/19/20 05:03 09/19/20 09/20/20 19:35 04:50 Ferritin 1820.00 H C-Reactive Protein 18.5 H Urine Color MEGHAN Urine Appearance CLOUDY Urine pH 5.0 Ur Specific Minetto 1.035 Urine Protein 100 H Urine Glucose (UA) NEGATIVE Urine Ketones NEGATIVE Urine Blood LARGE H Urine Nitrite NEGATIVE Ur Leukocyte Esterase TRACE H Urine WBC (Auto) 1 Urine RBC (Auto) >182 08/31/20 09/11/20 09/11/20 12:15 05:09 05:09 Troponin I < 0.012 < 0.012 NT-Pro-B Natriuret Pep 1170 H 09/19/20 15:04 Troponin I 0.021 NT-Pro-B Natriuret Pep Impressions: Chest X-Ray 09/14/20 08:00 IMPRESSION: Unchanged radiographic appearance of the chest. Assessment and Plan - Diagnosis (1) Acute respiratory failure due to COVID-19 Is this a current diagnosis for this admission?: Yes (2) Anxiety Is this a current diagnosis for this admission?: Yes (3) Dyslipidemia Is this a current diagnosis for this admission?: Yes (4) Hypertension Qualifiers: Hypertension type: essential hypertension Qualified Code(s): I10 - Essential (primary) hypertension Is this a current diagnosis for this admission?: Yes (5) Hypothyroidism Is this a current diagnosis for this admission?: Yes (6) Inadequate oral nutritional intake Is this a current diagnosis for this admission?: Yes (7) Morbid obesity Is this a current diagnosis for this admission?: Yes (8) Morbid obesity with BMI of 45.0-49.9, adult Is this a current diagnosis for this admission?: Yes (9) Paroxysmal atrial fibrillation with rapid ventricular response Is this a current diagnosis for this admission?: Yes (10) Pneumonia due to COVID-19 virus Is this a current diagnosis for this admission?: Yes - Plan Summary Summary: (1) Pneumonia due to COVID-19 virus Per Previous Physician: "s/p 5 days of azithromycin and remdesivir and 10 days of dexamethasone Ceftriaxone discontinued after 4 days. s/p convalescent plasma Mostly dealing with the post-pneumonia sequelae and lung damage at this point PT/OT as tolerated" -Status post ivermectin Increased to methylprednisolone 80 mg every 12 hours and started multiple new vitamin supplements starting on 09/16, mild improvement afterwards, inflammatory labs improved Gradually wean pressure support and supplemental oxygen Improvement substantially impaired by patient's inability or unwillingness to mobilize, Discussed with patient and PT though she continues to refuse therapy Added IV vitamin C and Lovaza to improve inflammatory lung disease Added Breo (2) Acute respiratory failure due to COVID-19 Per Previous Physician: "Unfortunately there has been no improvement in her oxygenation over the past few days. She still remains on CPAP 14/100% with SPO2 in the low 90s to high 80s." -Maintained on CPAP plus supplemental oxygen Extremely slow to recover (3) Paroxysmal atrial fibrillation with rapid ventricular response Is this a current diagnosis for this admission?: Yes Plan: Per Previous Physician: "Likely being driven by current illness. Seems to be new onset of A. fib. CHADSVASC of 3 --currently on Xarelto TTE suboptimal shows normal ejection fraction. Valves cannot be adequately assessed due to poor windows. Lopressor 50 mg every 6 hours Continue digoxin 0.125 mg daily." -Digoxin level subtherapeutic, increased digoxin dose Stopped rivaroxaban and started treatment dose Lovenox for clinical worsening (4) Inadequate oral nutritional intake Is this a current diagnosis for this admission?: Yes Plan: Per Previous Physician: "Patient has not been able to have adequate nutrition due to her CPAP dependency. If she is not able to get on a high flow nasal cannula today, we will place a Dobbhoff and start her on enteral feeding." (5) Hypertension Qualifiers: Hypertension type: essential hypertension Qualified Code(s): I10 - Essential (primary) hypertension Is this a current diagnosis for this admission?: Yes Plan: BP is adequate. On Lopressor. (6) Anxiety Is this a current diagnosis for this admission?: Yes Plan: On her home regimen of Xanax as needed (7) Morbid obesity with BMI of 45.0-49.9, adult Is this a current diagnosis for this admission?: Yes - Time Time Spent with patient: 35 or more minutes Medications reviewed and adjusted accordingly: Yes Anticipated Discharge Disposition: [facility] Anticipated Discharge Timeframe: within 72 hours - Inpatient Certification Based on my medical assessment, after consideration of the patient's comorbidities, presenting symptoms, or acuity I expect that the services needed warrant INPATIENT care.: Yes I certify that my determination is in accordance with my understanding of Medicare's requirements for reasonable and necessary INPATIENT services [42 CFR 412.3e].: Yes Medical Necessity: Significant Comorbidiites Make Outpatient Treatment Too Risky, Need Close Monitoring Due to Risk of Patient Decompensation, Need For Continuous Telemetry Monitoring, Need for Nebulizer Therapy and Monitoring of Response, Risk of Complication if Not Cared For in Hospital, Risk of Diagnosis Which Will Require Inpatient Eval/Care/Monitoring
[2020-09-20] MEDS: DEXTROSE 5% IV SCH (18:16)
[2020-09-20] MEDS: WATER IV SCH (18:16)
[2020-09-20] MEDS: ASCORBIC ACID IV SCH (18:16)
[2020-09-20] MEDS: ATORVASTATIN CALCIUM 80 MG TABLET PO SCH (21:41)
[2020-09-20] MEDS: MELATONIN 5 MG TABLET PO SCH (21:42)
[2020-09-20] MEDS ORDERED: ATORVASTATIN CALCIUM 40 MG TABLET PO SCH (22:00)
[2020-09-21] MEDS: DEXTROSE 5% IV SCH ×5 (00:30→23:45)
[2020-09-21] MEDS: WATER IV SCH ×5 (00:30→23:45)
[2020-09-21] MEDS: METOPROLOL TARTRATE 50 MG TABLET PO SCH ×5 (00:30→23:45)
[2020-09-21] MEDS: ASCORBIC ACID IV SCH ×5 (00:30→23:45)
[2020-09-21 05:35] LABS: HEMATOCRIT 42.5 % (36.0-47.0); HEMOGLOBIN 14.5 g/dL (12.0-15.5); MEAN CORPUSCULAR HEMOGLOBIN 30.9 pg (27.0-33.4); MEAN CORPUSCULAR VOLUME 91 fl (80-97); PLATELET COUNT 210 10^3/uL (150-450); RED BLOOD COUNT 4.68 10^6/uL (3.72-5.28); RED CELL DISTRIBUTION WIDTH 13.9 % (11.5-14.0); WHITE BLOOD COUNT 20.9 10^3/uL (4.0-10.5)
[2020-09-21] MEDS: LEVOTHYROXINE SODIUM 0.088 MG TABLET PO SCH (05:36)
[2020-09-21 05:50] LABS: ABSOLUTE LYMPHOCYTES# (MANUAL) 0.6 10^3/uL (0.5-4.7); ABSOLUTE MONOCYTES # (MANUAL) 0.2 10^3/uL (0.1-1.4); BASOPHILS % (MANUAL) 0 % (0-2); EOSINOPHILS % (MANUAL) 0 % (0-6); LYMPHOCYTES % (MANUAL) 3 % (13-45); MONOCYTES % (MANUAL) 1 % (3-13); SEGMENTED NEUTROPHILS % (MAN) 96 % (42-78); TOTAL CELLS COUNTED 100
[2020-09-21 05:51] LABS: PLATELET COMMENT ADEQUATE; RBC MORPHOLOGY COMMENT NORMO-CYTIC/CHROMIC
[2020-09-21 06:01] LABS: ANION GAP 6 (5-19); BLOOD UREA NITROGEN 50 mg/dL (7-20); C-REACTIVE PROTEIN 26.2 mg/L (<10.0); CALCIUM 8.7 mg/dL (8.4-10.2); CARBON DIOXIDE 29 mmol/L (22-30); CHLORIDE 99 mmol/L (98-107); GLUCOSE 127 mg/dL (75-110); POTASSIUM 4.6 mmol/L (3.6-5.0)
[2020-09-21 06:47] LABS: APPEARANCE,URINE SLIGHTLY-CLOUDY; BILIRUBIN,URINE NEGATIVE (NEGATIVE); COLOR,URINE AMBER; GLUCOSE, URINE NEGATIVE (NEGATIVE); KETONES,URINE NEGATIVE (NEGATIVE); LEUKOCYTE ESTERASE,URINE NEGATIVE (NEGATIVE); NITRITE,URINE NEGATIVE (NEGATIVE); PROTEIN,URINE 30 mg/dL (NEGATIVE); URINE SPECIFIC GRAVITY 1.034
[2020-09-21] MEDS: IPRATROPIUM BROMIDE 0.02% NEB 0.5 MG/2.5 ML AMPUL NEB SCH ×3 (08:10→20:22)
[2020-09-21] MEDS: OMEGA-3 ACID ETHYL ESTERS 1 GM CAPSULE PO SCH (11:25)
[2020-09-21] MEDS: VITAMIN B COMPLEX TABLET PO SCH (11:25)
[2020-09-21] MEDS: CHOLECALCIFEROL (D3) 1,000 UNIT (25 MCG) TABLET PO SCH (11:25)
[2020-09-21] MEDS: DOCUSATE SODIUM 100 MG CAPSULE PO SCH (11:25)
[2020-09-21] MEDS: DIGOXIN 0.25 MG TABLET PO SCH (11:25)
[2020-09-21] MEDS: GUAIFENESIN 600 MG TABLET.SA PO SCH ×2 (11:25→22:23)
[2020-09-21] MEDS: ZINC SULFATE 220 MG CAPSULE PO SCH (11:25)
[2020-09-21] MEDS: ENOXAPARIN SODIUM INJ 150 MG/1 ML DISP.SYRIN SUBCUT SCH ×2 (11:25→22:23)
[2020-09-21] MEDS: METHYLPREDNISOLONE INJ 125 MG/2 ML SDV IV SCH ×2 (11:25→22:23)
[2020-09-21] MEDS: FAMOTIDINE 20 MG TABLET PO SCH ×2 (11:25→22:23)
[2020-09-21] MEDS: ASPIRIN 81 MG TABLET, ENT COATED PO SCH (11:25)
[2020-09-21] MEDS: THIAMINE HCL 200 MG in NORMAL SALINE 50 ML IV SCH (13:00)
--- NOTE | 2020-09-21 16:10 | RADIOLOGY REPORT (SQ) ---
EXAM DESCRIPTION: CT CHEST WITH IMAGES COMPLETED DATE/TIME: 09/21/2020 3:55 pm REASON FOR STUDY: covid pna, possible PE's COMPARISON: None. TECHNIQUE: CT scan of the chest performed using helical scanning technique with dynamic intravenous contrast injection. Images reviewed with lung, soft tissue and bone windows. Reconstructed coronal and sagittal MPR and MIP images reviewed. All images stored on PACS. All CT scanners at this facility use dose modulation, iterative reconstruction, and/or weight based d osing when appropriate to reduce radiation dose to as low as reasonably achievable (ALARA). [facility]: Dose Right [facility]: CareDose [facility]: Dose Right [facility]: Teradose 4D [facility]: Ecoark CONTRAST TYPE AND DOSE: contrast/concentration: Isovue 350.00 mmol/ml; Total Contrast Delivered: 75. 1 ml; Total Saline Delivered: 20.0 ml RENAL FUNCTION: Creatinine 0.6 RADIATION DOSE: CT Rad equipment meets quality standard of care and radiation dose reduction techniq ues were employed. CTDIvol: 18.9 mGy. DLP: 735 mGy-cm. . LIMITATIONS: None. FINDINGS: LUNGS AND PLEURA: Trachea and bronchi widely patent. Lungs demonstrate diffuse granular g round-glass opacities throughout. More focal patchy areas of consolidation within the dependent uppe r and bilateral lower lobes. No significant effusion. No pneumothorax. HILAR AND MEDIASTINAL STRUCTURES: There is pneumomediastinum extending from the level of the lower es ophagus through the visualized neck. Source of extraluminal gas is not readily identifiable. HEART AND VASCULAR STRUCTURES: Normal heart size. Pneumomediastinum tracking along the trachea and g reat vessels within the neck. Heart is normal in size. No pericardial effusion. No significant leda cified coronary atherosclerosis. HARDWARE: None in the chest. Cholecystectomy clips. UPPER ABDOMEN: No acute findings. Prior cholecystectomy. THYROID AND OTHER SOFT TISSUES: Unremarkable thyroid. Pneumomediastinum as above. BONES: No acute bony abnormality. No suspicious lytic or blastic osseous lesions. OTHER: No other significant finding. IMPRESSION: 1. No evidence of pulmonary embolism. 2. Diffuse bilateral ground-glass opacities with patchy additional areas of consolidation throughout both dependent lungs compatible with given history of Covid pneumonia. 3. Pneumomediastinum, source not readily identifiable but likely related to barotrauma. No pneumoth orax. TECHNICAL DOCUMENTATION: JOB ID: [id number] Quality ID # [id number]: Final reports with documentation of one or more dose reduction techniques (e.g., Au tomated exposure control, adjustment of the mA and/or kV according to patient size, use of iterative reconstruction technique) 2010 [employer]- All Rights Reserved Reading location - IP/workstation name: [email or web address]
--- NOTE | 2020-09-21 16:17 | PDOC PROGRESS REPORT ---
Subjective Subjective:: Per Previous Physician: "SU BOND is a 70 year old female past medical history of hypertension and hypothyroidism presented to ED complaining of worsening shortness of breath. Patient was recently exposed to COVID-19, stating that a week after exposure she was feeling tired and went to get tested for COVID-19, on Thursday he was called and told that she had tested positive for COVID-19. Patient is stating that her fatigue and shortness of breath got worse and that is what brought her to the ED. Patient is stating that she did not have any fever, anosmia, dysgeusia, she did have diarrhea which has resolved. Denies any chest pain, fever, chills, nausea, vomiting, diarrhea, constipation or any urinary symptoms. ED she was noted to be hypoxic, chest x-ray was positive for diffuse bilateral alveolar interstitial infiltrates. Hospitalist consulted for admission." 09/15/2020 Patient is tachypneic today on 15 L on CPAP saturation at 92%. Her A. fib appears to be intermittently controlled although nursing states she required some as needed beta-migel for persistently elevated heart rate. Blood pre ssure stable and electrolytes are normal as of last lab check. Last magnesium level was 2.2 collected on 09/08. Patient's digoxin level was subtherapeutic when it was checked yesterday. Renal function is normal. I have increased her dose of digoxin hopefully maintain better control of atrial fibrillation. 09/16/2020 Patient seems be doing a bit worse now with rising oxygen requirements and less time able to maintain on high flow nasal cannula rather than CPAP. I have added multiple vitamin supplements and I have doubled the patient's methylprednisolone. Patient will be monitored very closely for any improvement or deterioration. 09/17/2020 Per nursing, patient looks to be a bit better today. She is tolerating a bit more time off of the NIV without respiratory distress while she is eating. She is still becoming extremely fatigued. She seems to have some mild clinical improvement on the higher dose steroids and her labs also reflect an improvement. 09/18/2020 Patient appears to have hopefully leveled off on her oxygen requirements and we can start weaning her off of the BiPAP and supplemental oxygen. This will be a very long and tedious process. Once we have successfully weaned her off of some pressure and oxygen, I will start weaning her steroids as well. For now we'll keep her at 80 mg Solu-Medrol twice daily. She has no new complaints today. She needs to be mobilized as much as safely tolerable 09/19/2020 We are continuing to attempt to wean the patient's oxygen and pressure support however it is rather difficult. Patient seems to get anxious whenever she is taken off BiPAP or if she is moved from the bed. This is likely a strong contributing factor to her intermittent dyspnea. Her inflammatory markers are significantly improved and continued to improve. I spoke at length with the patient about the need for her to get out of bed and work with physical therapy. She nodded her head in agreement but later refused when the physical therapist came in approximately 5 minutes later. I believe her immobility is severely hindering her capacity for improvement. 09/20/2020 Trying each day to motivate the patient to be more active and get up to her chair during the day. She stated she does not wish to get up to the chair. She refused PT yesterday. I am concerned if she remains immobilized, she will clinically worsen. I have added multiple salvage treatments to her regimen today including lovaza and IV vitamin C to improve her inflammatory lung disease. Her inflammatory markers are gradually rising. Troponin yesterday was within normal limits. She is maintained on 50% FiO2 on high flow nasal cannula with CPAP being used frequently. I discussed with nursing that we need to continue weaning oxygen and pressure requirements. This will be done as patient allows however. 09/21/2020 Pt has been getting OOB some today, sitting on side of the bed and working with physical therapy and doing upper extremity exercises. I strongly believe this is the rodriguez to the patient's recovery if she continues this motivation momentum, she stands much better chance at leaving the hospital and doing so much sooner than if she stayed in bed all day every day. Need to continue trying to wean oxygen and pressure. Per nursing, this has not been possible today. I have increased her steroids again we can pulse this high dose for a few days and then drop back down to 80 mg twice daily and then hopefully down to 40 mg twice daily and so on and so forth. Patient states she is very motivated today to work hard and get better. D-dimer is higher, CRP is higher. We will recheck inflammatory markers tomorrow and hopefully these will come down with the higher dose of steroid. Patient is currently on 80% FiO2 with CPAP. This is a bit more than she was on yesterday. Reason For Visit: COVID-19 Physical Exam Vital Signs: Temp Pulse Resp BP Pulse Ox 97.7 F 86 25 H 96/60 L 90 L 09/21/20 11:06 09/21/20 11:06 09/21/20 11:06 09/21/20 11:06 09/21/20 11:06 Intake & Output 09/20/20 09/21/20 09/22/20 06:59 06:59 06:59 Intake Total 500 854 Output Total 875 870 Balance -375 -16 Weight 123.5 kg 122.6 kg 122.6 kg Exam: General appearance: PRESENT: no acute distress, well-developed, well-nourished, morbidly obese with BMI 46.7, chronically ill-appearing elderly white female, states she is not very motivated to be more active and work towards discharge Head exam: PRESENT: atraumatic, normocephalic Eye exam: PRESENT: conjunctiva pink. ABSENT: scleral icterus Mouth exam: PRESENT: moist Respiratory exam: PRESENT: CTA B ABSENT: rales, wheezes Cardiovascular exam: PRESENT: RRR. ABSENT: diastolic murmur, rubs, systolic murmur GI/Abdominal exam: PRESENT: normal bowel sounds, soft. ABSENT: distended, guarding, mass, organolmegaly, rebound, tenderness Neurological exam: PRESENT: alert, awake, oriented to person, oriented to place, oriented to time, oriented to situation Psychiatric exam: PRESENT: appropriate affect, normal mood Skin exam: PRESENT: dry, intact, warm Results Laboratory Results: 09/21/20 04:30 09/21/20 04:30 09/21/20 09/21/20 09/21/20 04:30 04:30 06:00 WBC 20.9 H RBC 4.68 Hgb 14.5 Hct 42.5 MCV 91 MCH 30.9 MCHC 34.0 RDW 13.9 Plt Count 210 Seg Neutrophils % Not Reportable Sodium 134.2 L Potassium 4.6 Chloride 99 Carbon Dioxide 29 Anion Gap 6 BUN 50 H Creatinine 0.60 Est GFR ( Amer) > 60 Glucose 127 H Calcium 8.7 Ferritin Cancelled C-Reactive Protein 26.2 H Urine Color MEGHAN Urine Appearance SLIGHTLY-CLOUDY Urine pH 5.0 Ur Specific [place] 1.034 Urine Protein 30 H Urine Glucose (UA) NEGATIVE Urine Ketones NEGATIVE Urine Blood NEGATIVE Urine Nitrite NEGATIVE Ur Leukocyte Esterase NEGATIVE Urine WBC (Auto) 3 Urine RBC (Auto) 13 08/31/20 09/11/20 09/11/20 12:15 05:09 05:09 Troponin I < 0.012 < 0.012 NT-Pro-B Natriuret Pep 1170 H 09/19/20 15:04 Troponin I 0.021 NT-Pro-B Natriuret Pep Impressions: Chest X-Ray 09/14/20 08:00 IMPRESSION: Unchanged radiographic appearance of the chest. Assessment and Plan - Diagnosis (1) Acute respiratory failure due to COVID-19 Is this a current diagnosis for this admission?: Yes (2) Anxiety Is this a current diagnosis for this admission?: Yes (3) Dyslipidemia Is this a current diagnosis for this admission?: Yes (4) Hypertension Qualifiers: Hypertension type: essential hypertension Qualified Code(s): I10 - Essential (primary) hypertension Is this a current diagnosis for this admission?: Yes (5) Hypothyroidism Is this a current diagnosis for this admission?: Yes (6) Inadequate oral nutritional intake Is this a current diagnosis for this admission?: Yes (7) Morbid obesity Is this a current diagnosis for this admission?: Yes (8) Morbid obesity with BMI of 45.0-49.9, adult Is this a current diagnosis for this admission?: Yes (9) Paroxysmal atrial fibrillation with rapid ventricular response Is this a current diagnosis for this admission?: Yes (10) Pneumonia due to COVID-19 virus Is this a current diagnosis for this admission?: Yes - Plan Summary Summary: (1) Pneumonia due to COVID-19 virus Per Previous Physician: "s/p 5 days of azithromycin and remdesivir and 10 days of dexamethasone Ceftriaxone discontinued after 4 days. s/p convalescent plasma Mostly dealing with the post-pneumonia sequelae and lung damage at this point PT/OT as tolerated" -Status post ivermectin Increased to methylprednisolone 80 mg every 12 hours and started multiple new vitamin supplements starting on 09/16, mild improvement afterwards, inflammatory labs improved Gradually wean pressure support and supplemental oxygen Improvement substantially impaired by patient's inability or unwillingness to mobilize, Discussed with patient and PT though she continues to refuse therapy; as of 09/21 patient has been more mobile and is working with PT Added IV vitamin C and Lovaza to improve inflammatory lung disease, increased IV steroids 125 mg Solu-Medrol twice daily on 09/21, pulse for 3 days then reduce dose as able Added Breo (2) Acute respiratory failure due to COVID-19 Per Previous Physician: "Unfortunately there has been no improvement in her oxygenation over the past few days. She still remains on CPAP 14/100% with SPO2 in the low 90s to high 80s." -Maintained on CPAP plus supplemental oxygen Extremely slow to recover Covered with Lovenox (3) Paroxysmal atrial fibrillation with rapid ventricular response Is this a current diagnosis for this admission?: Yes Plan: Per Previous Physician: "Likely being driven by current illness. Seems to be new onset of A. fib. CHADSVASC of 3 --currently on Xarelto TTE suboptimal shows normal ejection fraction. Valves cannot be adequately assessed due to poor windows. Lopressor 50 mg every 6 hours Continue digoxin 0.125 mg daily." -Digoxin level subtherapeutic, increased digoxin dose Stopped rivaroxaban and started treatment dose Lovenox for clinical worsening (4) Inadequate oral nutritional intake Is this a current diagnosis for this admission?: Yes Plan: Per Previous Physician: "Patient has not been able to have adequate nutrition due to her CPAP dependency. If she is not able to get on a high flow nasal cannula today, we will place a Dobbhoff and start her on enteral feeding." (5) Hypertension Qualifiers: Hypertension type: essential hypertension Qualified Code(s): I10 - Essential (primary) hypertension Is this a current diagnosis for this admission?: Yes Plan: BP is adequate. On Lopressor. (6) Anxiety Is this a current diagnosis for this admission?: Yes Plan: On her home regimen of Xanax as needed (7) Morbid obesity with BMI of 45.0-49.9, adult Is this a current diagnosis for this admission?: Yes - Time Time Spent with patient: 35 or more minutes Medications reviewed and adjusted accordingly: Yes Anticipated Discharge Disposition: Intermediate Care Facility Anticipated Discharge Timeframe: within 72 hours - Inpatient Certification Based on my medical assessment, after consideration of the patient's comorbidities, presenting symptoms, or acuity I expect that the services needed warrant INPATIENT care.: Yes I certify that my determination is in accordance with my understanding of Medicare's requirements for reasonable and necessary INPATIENT services [42 CFR 412.3e].: Yes Medical Necessity: Significant Comorbidiites Make Outpatient Treatment Too Risky, Need Close Monitoring Due to Risk of Patient Decompensation, Risk of Comp lication if Not Cared For in Hospital, Risk of Diagnosis Which Will Require Inpatient Eval/Care/Monitoring
--- NOTE | 2020-09-21 17:35 | Progress Note ---
Provider Note Provider Note: Patient has pneumomediastinum on CT Chest. D/w Dr Floyd who is reviewing the scans. He stated many of these are simply monitored with serial imaging. Possible pt could need CT surgery eval, but we will wait for Dr Floyd to make his recommendations. Patient is stable for now.
[2020-09-21 20:15] LABS: APPEARANCE,URINE SLIGHTLY-CLOUDY; BILIRUBIN,URINE NEGATIVE (NEGATIVE); CALCIUM OXALATE CRYSTALS,URINE FEW /HPF; COLOR,URINE YELLOW; GLUCOSE, URINE NEGATIVE (NEGATIVE); KETONES,URINE NEGATIVE (NEGATIVE); LEUKOCYTE ESTERASE,URINE NEGATIVE (NEGATIVE); NITRITE,URINE NEGATIVE (NEGATIVE); PROTEIN,URINE 30 mg/dL (NEGATIVE); URINE SPECIFIC GRAVITY 1.055
[2020-09-21] MEDS: ATORVASTATIN CALCIUM 80 MG TABLET PO SCH (22:22)
[2020-09-21] MEDS: MELATONIN 5 MG TABLET PO SCH (22:23)
[2020-09-21] MEDS: ALPRAZOLAM 0.25 MG TABLET PO PRN (22:30)
[2020-09-22] MEDS: LEVOTHYROXINE SODIUM 0.088 MG TABLET PO SCH (05:39)
[2020-09-22] MEDS: ASCORBIC ACID IV SCH (05:40)
[2020-09-22] MEDS: METOPROLOL TARTRATE 50 MG TABLET PO SCH (05:40)
[2020-09-22] MEDS: DEXTROSE 5% IV SCH (05:40)
[2020-09-22] MEDS: WATER IV SCH (05:40)
[2020-09-22 06:19] LABS: BLOOD UREA NITROGEN 40 mg/dL (7-20); C-REACTIVE PROTEIN 17.7 mg/L (<10.0); CALCIUM 8.4 mg/dL (8.4-10.2); GLUCOSE 142 mg/dL (75-110); POTASSIUM 4.3 mmol/L (3.6-5.0)
[2020-09-22 06:20] LABS: HEMATOCRIT 35.4 % (36.0-47.0); MEAN CORPUSCULAR HEMOGLOBIN 32.4 pg (27.0-33.4); MEAN CORPUSCULAR HGB CONC 35.1 g/dL (32.0-36.0); MEAN CORPUSCULAR VOLUME 92 fl (80-97); PLATELET COUNT 218 10^3/uL (150-450); RED BLOOD COUNT 3.84 10^6/uL (3.72-5.28); RED CELL DISTRIBUTION WIDTH 13.9 % (11.5-14.0); WHITE BLOOD COUNT 22.8 10^3/uL (4.0-10.5)
[2020-09-22 06:23] LABS: CARBON DIOXIDE 31 mmol/L (22-30); CHLORIDE 96 mmol/L (98-107)
[2020-09-22 06:30] LABS: HEMOGLOBIN 12.4 g/dL (12.0-15.5)
[2020-09-22 06:32] LABS: ABSOLUTE LYMPHOCYTES# (MANUAL) 0.7 10^3/uL (0.5-4.7); ABSOLUTE MONOCYTES # (MANUAL) 1.6 10^3/uL (0.1-1.4); BAND NEUTROPHILS % (MANUAL) 4 % (3-5); BASOPHILS % (MANUAL) 0 % (0-2); EOSINOPHILS % (MANUAL) 0 % (0-6); LYMPHOCYTES % (MANUAL) 3 % (13-45); MONOCYTES % (MANUAL) 7 % (3-13); PLATELET COMMENT ADEQUATE; RBC MORPHOLOGY COMMENT NORMO-CYTIC/CHROMIC; SEGMENTED NEUTROPHILS % (MAN) 86 % (42-78); TOTAL CELLS COUNTED 100
[2020-09-22] MEDS ORDERED: MORPHINE SULFATE 10 MG/ML INJ ONE ×2 (06:34→08:21)
[2020-09-22 07:38] LABS: ANION GAP 4 (5-19)
[2020-09-22] MEDS: IPRATROPIUM BROMIDE 0.02% NEB 0.5 MG/2.5 ML AMPUL NEB SCH ×3 (07:42→20:31)
[2020-09-22] MEDS ORDERED: MORPHINE SULFATE 10 MG/ML INJ IV ONE (09:00)
[2020-09-22] MEDS: ASPIRIN 81 MG TABLET, ENT COATED PO SCH (10:46)
[2020-09-22] MEDS: DOCUSATE SODIUM 100 MG CAPSULE PO SCH (10:46)
[2020-09-22] MEDS: GUAIFENESIN 600 MG TABLET.SA PO SCH (10:47)
[2020-09-22] MEDS: ENOXAPARIN SODIUM INJ 150 MG/1 ML DISP.SYRIN SUBCUT SCH (10:47)
[2020-09-22] MEDS: OMEGA-3 ACID ETHYL ESTERS 1 GM CAPSULE PO SCH (10:47)
[2020-09-22] MEDS: DIGOXIN 0.25 MG TABLET PO SCH (10:47)
[2020-09-22] MEDS: VITAMIN B COMPLEX TABLET PO SCH (10:48)
[2020-09-22] MEDS: FAMOTIDINE 20 MG TABLET PO SCH (10:48)
[2020-09-22] MEDS: CHOLECALCIFEROL (D3) 1,000 UNIT (25 MCG) TABLET PO SCH (10:48)
[2020-09-22] MEDS: ZINC SULFATE 220 MG CAPSULE PO SCH (10:48)
[2020-09-22] MEDS: METHYLPREDNISOLONE INJ 125 MG/2 ML SDV IV SCH (10:48)
[2020-09-22] MEDS: MORPHINE SULFATE 10 MG/ML INJ IV PRN ×6 (11:26→21:33)
--- NOTE | 2020-09-22 15:54 | PDOC PROGRESS REPORT ---
Subjective Date:: 09/22/20 Subjective:: This morning the patient expressed her desire to have her CODE STATUS changed to DNR. She then decided she wanted to be on comfort measures only. She says that she was tired of all the medical treatments and she did not feel like she was going to make it through this hospitalization because her body just seems like it did not want to get better. Reason For Visit: COVID-19 Physical Exam Vital Signs: Temp Pulse Resp BP Pulse Ox 97.5 F 94 34 H 121/77 75 L 09/22/20 10:00 09/22/20 14:08 09/22/20 14:08 09/22/20 03:31 09/22/20 14:08 Intake & Output 09/21/20 09/22/20 09/23/20 06:59 06:59 06:59 Intake Total 854 1646 Output Total 870 1150 Balance -16 496 Weight 122.6 kg 124.1 kg General appearance: PRESENT: no acute distress, well-developed, well-nourished, morbidly obese, chronically ill-appearing elderly white female Head exam: PRESENT: atraumatic, normocephalic Eye exam: PRESENT: conjunctiva pink. ABSENT: scleral icterus Respiratory exam: PRESENT: CTA B ABSENT: rales, wheezes Cardiovascular exam: PRESENT: RRR. ABSENT: diastolic murmur, rubs, systolic murmur GI/Abdominal exam: PRESENT: normal bowel sounds, soft. ABSENT: distended, guarding, mass, organolmegaly, rebound, tenderness Neurological exam: PRESENT: alert, awake, oriented to person, oriented to place, oriented to time, oriented to situation Psychiatric exam: PRESENT: appropriate affect, normal mood Skin exam: PRESENT: dry, intact, warm Results Laboratory Results: 09/22/20 05:06 09/22/20 05:06 09/21/20 09/21/20 09/22/20 04:30 18:30 05:06 WBC RBC Hgb Hct MCV MCH MCHC RDW Plt Count Seg Neutrophils % Sodium 131.2 L Potassium 4.3 Chloride 96 L Carbon Dioxide 31 H Anion Gap 4 L BUN 40 H Creatinine 0.44 L Est GFR ( Amer) > 60 Glucose 142 H Calcium 8.4 Magnesium 2.6 H Ferritin 1340.00 H C-Reactive Protein 17.7 H Urine Color YELLOW Urine Appearance SLIGHTLY-CLOUDY Urine pH 5.0 Ur Specific [place] 1.055 Urine Protein 30 H Urine Glucose (UA) NEGATIVE Urine Ketones NEGATIVE Urine Blood NEGATIVE Urine Nitrite NEGATIVE Ur Leukocyte Esterase NEGATIVE Urine WBC (Auto) 5 Urine RBC (Auto) 48 09/22/20 05:06 WBC 22.8 H RBC 3.84 Hgb 12.4 D Hct 35.4 L MCV 92 MCH 32.4 MCHC 35.1 RDW 13.9 Plt Count 218 Seg Neutrophils % Not Reportable Sodium Potassium Chloride Carbon Dioxide Anion Gap BUN Creatinine Est GFR ( Amer) Glucose Calcium Magnesium Ferritin C-Reactive Protein Urine Color Urine Appearance Urine pH Ur Specific [place] Urine Protein Urine Glucose (UA) Urine Ketones Urine Blood Urine Nitrite Ur Leukocyte Esterase Urine WBC (Auto) Urine RBC (Auto) 08/31/20 09/11/20 09/11/20 12:15 05:09 05:09 Troponin I < 0.012 < 0.012 NT-Pro-B Natriuret Pep 1170 H 09/19/20 15:04 Troponin I 0.021 NT-Pro-B Natriuret Pep Impressions: Chest X-Ray 09/14/20 08:00 IMPRESSION: Unchanged radiographic appearance of the chest. Chest CT 09/21/20 00:00 IMPRESSION: 1. No evidence of pulmonary embolism. 2. Diffuse bilateral ground-glass opacities with patchy additional areas of consolidation throughout both dependent lungs compatible with given history of Covid pneumonia. 3. Pneumomediastinum, source not readily identifiable but likely related to barotrauma. No pneumothorax. Assessment and Plan - Diagnosis (1) Acute respiratory failure due to COVID-19 Is this a current diagnosis for this admission?: Yes (2) Anxiety Is this a current diagnosis for this admission?: Yes (3) Dyslipidemia Is this a current diagnosis for this admission?: Yes (4) Hypertension Qualifiers: Hypertension type: essential hypertension Qualified Code(s): I10 - Essential (primary) hypertension Is this a current diagnosis for this admission?: Yes (5) Hypothyroidism Qualifiers: Hypothyroidism type: unspecified Qualified Code(s): E03.9 - Hypothyroidism, unspecified Is this a current diagnosis for this admission?: Yes (6) Inadequate oral nutritional intake Is this a current diagnosis for this admission?: Yes (7) Morbid obesity with BMI of 45.0-49.9, adult Is this a current diagnosis for this admission?: Yes (8) Paroxysmal atrial fibrillation with rapid ventricular response Is this a current diagnosis for this admission?: Yes (9) Pneumonia due to COVID-19 virus Is this a current diagnosis for this admission?: Yes - Plan Summary Summary: Patient has been made comfort measures only. She is being kept on BiPAP just to help with her work of breathing so she does not feel like she is struggling. I asked her if there was anyone she would like for me to call and she said no. Acute treatments have been discontinued at her request. She has made her wishes known to several members of the staff as well. - Time Time Spent with patient: 25-34 minutes Anticipated Discharge Disposition: Unknown Anticipated Discharge Timeframe: Unknown
[2020-09-22 20:26] VITALS: BP 67/31
--- NOTE | 2020-09-23 01:33 | Death Summary ---
Summary Date : 09/22/20 Time of :: 23:56 Autopsy: No Resuscitation Status: Comfort Measures Only - Final Diagnosis (1) Acute respiratory failure due to COVID-19 Is this a current diagnosis for this admission?: Yes (2) Pneumonia due to COVID-19 virus Is this a current diagnosis for this admission?: Yes (3) Anxiety Is this a current diagnosis for this admission?: Yes (4) Dyslipidemia Is this a current diagnosis for this admission?: Yes (5) Hypertension Is this a current diagnosis for this admission?: Yes (6) Hypothyroidism Is this a current diagnosis for this admission?: Yes (7) Morbid obesity with BMI of 45.0-49.9, adult Is this a current diagnosis for this admission?: Yes (8) Paroxysmal atrial fibrillation with rapid ventricular response Is this a current diagnosis for this admission?: Yes Hospital Course:: Per Previous Physician: "SU BOND is a 70 year old female past medical history of hypertension and hypothyroidism presented to ED complaining of worsening shortness of breath. Patient was recently exposed to COVID-19, stating that a week after exposure she was feeling tired and went to get tested for COVID-19, on Thursday he was called and told that she had tested positive for COVID-19. Patient is stating that her fatigue and shortness of breath got worse and that is what brought her to the ED. Patient is stating that she did not have any fever, anosmia, dysgeusia, she did have diarrhea which has resolved. Denies any chest pain, fever, chills, nausea, vomiting, diarrhea, constipation or any urinary symptoms. ED she was noted to be hypoxic, chest x-ray was positive for diffuse bilateral alveolar interstitial infiltrates. Hospitalist consulted for admission." 09/15/2020 Patient is tachypneic today on 15 L on CPAP saturation at 92%. Her A. fib appears to be intermittently controlled although nursing states she required some as needed beta-migel for persistently elevated heart rate. Blood pressure stable and electrolytes are normal as of last lab check. Last magnesium level was 2.2 collected on 09/08. Patient's digoxin level was subtherapeutic when it was checked yesterday. Renal function is normal. I have increased her dose of digoxin hopefully maintain better control of atrial fibrillation. 09/16/2020 Patient seems be doing a bit worse now with rising oxygen requirements and less time able to maintain on high flow nasal cannula rather than CPAP. I have added multiple vitamin supplements and I have doubled the patient's methylprednisolone. Patient will be monitored very closely for any improvement or deterioration. 09/17/2020 Per nursing, patient looks to be a bit better today. She is tolerating a bit more time off of the NIV without respiratory distress while she is eating. She is still becoming extremely fatigued. She seems to have some mild clinical improvement on the higher dose steroids and her labs also reflect an improvement. 09/18/2020 Patient appears to have hopefully leveled off on her oxygen requirements and we can start weaning her off of the BiPAP and supplemental oxygen. This will be a very long and tedious process. Once we have successfully weaned her off of some pressure and oxygen, I will start weaning her steroids as well. For now we'll keep her at 80 mg Solu-Medrol twice daily. She has no new complaints today. She needs to be mobilized as much as safely tolerable 09/19/2020 We are continuing to attempt to wean the patient's oxygen and pressure support however it is rather difficult. Patient seems to get anxious whenever she is taken off BiPAP or if she is moved from the bed. This is likely a strong contributing factor to her intermittent dyspnea. Her inflammatory markers are significantly improved and continued to improve. I spoke at length with the patient about the need for her to get out of bed and work with physical therapy. She nodded her head in agreement but later refused when the physical therapist came in approximately 5 minutes later. I believe her immobility is severely hindering her capacity for improvement. 09/20/2020 Trying each day to motivate the patient to be more active and get up to her chair during the day. She stated she does not wish to get up to the chair. She refused PT yesterday. I am concerned if she remains immobilized, she will clinically worsen. I have added multiple salvage treatments to her regimen today including lovaza and IV vitamin C to improve her inflammatory lung disease. Her inflammatory markers are gradually rising. Troponin yesterday was within normal limits. She is maintained on 50% FiO2 on high flow nasal cannula with CPAP being used frequently. I discussed with nursing that we need to continue weaning oxygen and pressure requirements. This will be done as patient allows however. 09/21/2020 Pt has been getting OOB some today, sitting on side of the bed and working with physical therapy and doing upper extremity exercises. I strongly believe this is the rodriguez to the patient's recovery if she continues this motivation momentum, she stands much better chance at leaving the hospital and doing so much sooner than if she stayed in bed all day every day. Need to continue trying to wean oxygen and pressure. Per nursing, this has not been possible today. I have increased her steroids again we can pulse this high dose for a few days and then drop back down to 80 mg twice daily and then hopefully down to 40 mg twice daily and so on and so forth. Patient states she is very motivated today to work hard and get better. D-dimer is higher, CRP is higher. We will recheck inflammatory markers tomorrow and hopefully these will come down with the higher dose of steroid. Patient is currently on 80% FiO2 with CPAP. This is a bit more than she was on yesterday. Patient has pneumomediastinum on CT Chest. D/w Dr Floyd who is reviewing the scans. He stated many of these are simply monitored with serial imaging. Possible pt could need CT surgery eval, but we will wait for Dr Floyd to make his recommendations. Patient is stable for now. Dr Floyd stated pt can be monitored with serial CXR and this is a relatively small pneumomediastinum. If it worsens and develops pneumothorax or severe pneumopericardium, she would need transfer. He believes she is developing pulmonary fibrosis and may be severely debilitated from this mcfp based on CT Chest results. 09/22/2020 Patient expressed her wishes not to continue aggressive measures and wanted all acute treatment modalities to be discontinued. She was alert and oriented x4 and was competent to make decisions. Patient has been made comfort measures only. She is being kept on BiPAP just to help with her work of breathing so she does not feel like she is struggling. I asked her if there was anyone she would like for me to call and she said no. Acute treatments have been discontinued at her request. She has made her wishes known to several members of the staff as well." On 09/22/2020 at 23:56 patient peacefully. Patient was on comfort measures only. Family is aware of the poor prognosis and critical condition prior to . Her power of ip [employer] transactions attorney/next of kin was called and notified by her nurse.
== END 2020-09-22 23:56 | disposition expired | DRG 177 ==
LOC: ER 12:07 → EH 16:16 → 3W 09-01 03:46 → 3N 09-07 14:18
PROVIDERS: ADMIT Internal Medicine; ATTEND Internal Medicine
PROC: 5A09557 Assistance with Respiratory Ventilation, Greater than 96 Consecutive Hours, Continuous Positive Airway Pressure (ICD-10-PCS; 2020-08-31)
PROC: XW13325 Transfusion of Convalescent Plasma (Nonautologous) into Peripheral Vein, Percutaneous Approach, New Technology Group 5 (ICD-10-PCS; principal; 2020-09-01)
PROC: XW033E5 Introduction of Remdesivir Anti-infective into Peripheral Vein, Percutaneous Approach, New Technology Group 5 (ICD-10-PCS; 2020-09-03)
DX: U07.1 COVID-19 (principal); J96.00 Acute respiratory failure, unspecified whether with hypoxia or hypercapnia; J12.89 Other viral pneumonia; Z68.42 Body mass index [BMI] 45.0-49.9, adult; I10 Essential (primary) hypertension; F41.9 Anxiety disorder, unspecified; E78.5 Hyperlipidemia, unspecified; E03.9 Hypothyroidism, unspecified; E66.01 Morbid (severe) obesity due to excess calories; I48.0 Paroxysmal atrial fibrillation; J98.2 Interstitial emphysema; E63.9 Nutritional deficiency, unspecified; Z79.899 Other long term (current) drug therapy; Z66 Do not resuscitate; Z51.5 Encounter for palliative care
CPT/HCPCS: 36415; 36430; 36600; 71045; 71260; 80048; 80053; 80061; 80162; 81001; 82728; 82803; 83036; 83615; 83735; 83880; 84132; 84443; 84484; 85025; 85027; 85379; 85384; 85610; 86140; 86850; 86900; 86901; 87040; 87804; 93005; 93010; 93306; 94640; 94660; 94799; 99285; J0282; J0696; J1100; J1160; J1650; J1940; J2270; J2550; J2920; J2930; J3411; J3490; J7030; J7042; J7050; J7060; J7644; S0028